=== PATIENT | male | born 1965 | race Caucasian/White ===

== ENCOUNTER 2020-04-20 07:42 | Outpatient (REF) | payer OTHER, SELFPAY ==
[2020-04-20 10:51] LABS: Microalbum/Creatinine Ratio Ur 9.6 ug/mg cr
[2020-04-20 11:38] LABS: Vitamin B12 < 146 pg/mL (200-900)
[2020-04-21 14:47] LABS: Transglutaminase Ab IgG 1 U/mL
[2020-04-23 18:52] LABS: Endomysial IgA Antibody Negative (Negative)
[2020-04-23 20:01] LABS: Immunoglobulin A <5 mg/dL (47-310)
== END 2020-04-20 07:43 | disposition home or self-care (01) ==
LOC: HO.LAB 07:42
PROVIDERS: PCP Family Medicine; Referring Provider Family Medicine; Visit Provider Internal Medicine Endocrinology, Diabetes & Metabolism
DX: E13.9 Other specified diabetes mellitus without complications (principal); E11.3299 Type 2 diabetes mellitus with mild nonproliferative diabetic retinopathy without macular edema, unspecified eye; E78.5 Hyperlipidemia, unspecified; E66.9 Obesity, unspecified; I10 Essential (primary) hypertension
CPT/HCPCS: 36415; 82043; 82607; 82784; 82947; 83516; 86255; 86256; 99212

== ENCOUNTER → 2020-07-13 08:12 | Outpatient (BNVA) | payer OTHER, SELFPAY | PROVIDERS: PCP Family Medicine; Visit Provider Internal Medicine Endocrinology, Diabetes & Metabolism | DX: E13.9 Other specified diabetes mellitus without complications (principal); E10.3213 Type 1 diabetes mellitus with mild nonproliferative diabetic retinopathy with macular edema, bilateral; E53.8 Deficiency of other specified B group vitamins; E78.5 Hyperlipidemia, unspecified; E66.9 Obesity, unspecified; I10 Essential (primary) hypertension | CPT/HCPCS: 82947; 99212 ==

== ENCOUNTER 2020-07-29 12:19 | Outpatient (REF) | payer OTHER, SELFPAY ==
[2020-07-29 15:34] LABS: Alanine Aminotransferase 50 U/L (0-40); Albumin Level 4.1 g/dL (3.5-5.0); Alkaline Phosphatase 87 U/L (39-117); Anion Gap 13 (12-20); Aspartate Amino Transferase 50 U/L (5-37); Bilirubin Total 0.6 mg/dL (0.0-1.0); Blood Urea Nitrogen 9 mg/dL (9-16); Calcium 8.6 mg/dL (8.4-10.2); Carbon Dioxide 28 mmol/L (22-29); Chloride 104 mmol/L (96-108); Cholesterol 115 mg/dL; Estimated Glomerular Filt Rate > 60; Glucose Fasting 154 mg/dL (60-99); HDL Cholesterol 31 mg/dL; LDL Cholesterol Calculated 48 mg/dl; Potassium 3.7 mmol/L (3.3-5.1); Sodium 141 mmol/L (135-145); Total Protein 7.1 g/dL (6.5-8.0); Triglycerides 180 mg/dL
[2020-07-29 15:39] LABS: Free T4 (Free Thyroxine) 0.97 ng/dL (0.71-1.85)
[2020-07-29 15:53] LABS: Microalbum/Creatinine Ratio Ur 177.1 ug/mg cr
[2020-07-29 16:48] LABS: Vitamin B12 368 pg/mL (200-900)
[2020-07-30 03:16] LABS: LDL Cholesterol Direct 61 mg/dL (<100)
== END 2020-07-29 12:20 | disposition home or self-care (01) ==
LOC: HO.LAB 12:19
PROVIDERS: PCP Family Medicine; Visit Provider Internal Medicine Endocrinology, Diabetes & Metabolism
DX: E13.329 Other specified diabetes mellitus with mild nonproliferative diabetic retinopathy without macular edema (principal); Z46.81 Encounter for fitting and adjustment of insulin pump; E78.5 Hyperlipidemia, unspecified; E66.9 Obesity, unspecified; Z68.34 Body mass index [BMI] 34.0-34.9, adult; I10 Essential (primary) hypertension; E53.8 Deficiency of other specified B group vitamins
CPT/HCPCS: 36415; 80053; 80061; 82043; 82607; 82947; 83721; 84439; 84443; 99212

== ENCOUNTER → 2020-09-27 07:58 | Outpatient (BNVA) | payer OTHER, SELFPAY | PROVIDERS: PCP Family Medicine; Visit Provider Internal Medicine Endocrinology, Diabetes & Metabolism | DX: E13.9 Other specified diabetes mellitus without complications (principal); E10.3213 Type 1 diabetes mellitus with mild nonproliferative diabetic retinopathy with macular edema, bilateral; E78.5 Hyperlipidemia, unspecified; E66.9 Obesity, unspecified; E53.8 Deficiency of other specified B group vitamins; I10 Essential (primary) hypertension | CPT/HCPCS: 82947; 99212 ==

== ENCOUNTER → 2020-12-14 15:17 | Outpatient (BNVA) | payer OTHER, SELFPAY | PROVIDERS: PCP Family Medicine; Visit Provider Internal Medicine Endocrinology, Diabetes & Metabolism | DX: E10.3213 Type 1 diabetes mellitus with mild nonproliferative diabetic retinopathy with macular edema, bilateral (principal); E78.5 Hyperlipidemia, unspecified; E66.9 Obesity, unspecified; E53.8 Deficiency of other specified B group vitamins; I10 Essential (primary) hypertension | CPT/HCPCS: 82947; 99212 ==

== ENCOUNTER → 2021-03-30 07:28 | Outpatient (BNVA) | payer OTHER, SELFPAY | PROVIDERS: PCP Family Medicine; Visit Provider Nurse Practitioner Gerontology | DX: E13.9 Other specified diabetes mellitus without complications (principal); E10.3213 Type 1 diabetes mellitus with mild nonproliferative diabetic retinopathy with macular edema, bilateral; E78.5 Hyperlipidemia, unspecified; E66.9 Obesity, unspecified; E53.8 Deficiency of other specified B group vitamins; I10 Essential (primary) hypertension | CPT/HCPCS: 82947; 99212 ==

== ENCOUNTER → 2021-03-31 07:58 | Outpatient (BNVA) | payer OTHER, SELFPAY | PROVIDERS: PCP Family Medicine; Visit Provider Registered Nurse Diabetes Educator | DX: E13.9 Other specified diabetes mellitus without complications (principal) | CPT/HCPCS: 99211 ==

== ENCOUNTER → 2021-06-15 12:18 | Outpatient (BNVA) | payer OTHER, SELFPAY | PROVIDERS: PCP Family Medicine; Visit Provider Registered Nurse Diabetes Educator | DX: E13.9 Other specified diabetes mellitus without complications (principal) | CPT/HCPCS: 99211 ==

== ENCOUNTER → 2021-07-18 07:56 | Outpatient (BNVA) | payer OTHER, SELFPAY | PROVIDERS: PCP Family Medicine; Visit Provider Nurse Practitioner Gerontology | DX: E13.9 Other specified diabetes mellitus without complications (principal); E10.3213 Type 1 diabetes mellitus with mild nonproliferative diabetic retinopathy with macular edema, bilateral; E78.5 Hyperlipidemia, unspecified; E66.9 Obesity, unspecified; E53.8 Deficiency of other specified B group vitamins; I10 Essential (primary) hypertension | CPT/HCPCS: 82947; 83036; 99212 ==

== ENCOUNTER → 2021-08-17 07:48 | Outpatient (BNVA) | payer OTHER, SELFPAY | PROVIDERS: PCP Family Medicine; Visit Provider Registered Nurse Diabetes Educator | DX: E13.9 Other specified diabetes mellitus without complications (principal); Z79.4 Long term (current) use of insulin; Z96.41 Presence of insulin pump (external) (internal) | CPT/HCPCS: 99211 ==

== ENCOUNTER → 2021-10-12 07:52 | Outpatient (BNVA) | payer OTHER, SELFPAY | PROVIDERS: PCP Family Medicine; Visit Provider Nurse Practitioner Gerontology | DX: E10.3213 Type 1 diabetes mellitus with mild nonproliferative diabetic retinopathy with macular edema, bilateral (principal); E13.9 Other specified diabetes mellitus without complications; E78.5 Hyperlipidemia, unspecified; E66.9 Obesity, unspecified; E53.8 Deficiency of other specified B group vitamins; I10 Essential (primary) hypertension; Z79.4 Long term (current) use of insulin; Z96.41 Presence of insulin pump (external) (internal) | CPT/HCPCS: 82947; 83036 ==

== ENCOUNTER → 2022-03-23 08:00 | Outpatient (BNVA) | payer OTHER, SELFPAY | PROVIDERS: PCP Family Medicine; Visit Provider Internal Medicine Endocrinology, Diabetes & Metabolism | DX: E10.65 Type 1 diabetes mellitus with hyperglycemia (principal); E10.3299 Type 1 diabetes mellitus with mild nonproliferative diabetic retinopathy without macular edema, unspecified eye; Z79.4 Long term (current) use of insulin; Z96.41 Presence of insulin pump (external) (internal) | CPT/HCPCS: 82947; 83036; 99212 ==

== ENCOUNTER → 2022-07-04 16:15 | Outpatient (BNVA) | payer OTHER, SELFPAY | PROVIDERS: PCP Family Medicine; Visit Provider Internal Medicine Endocrinology, Diabetes & Metabolism | DX: E13.65 Other specified diabetes mellitus with hyperglycemia (principal); Z96.41 Presence of insulin pump (external) (internal) | CPT/HCPCS: 82947; 83036; 99212 ==

== ENCOUNTER → 2022-10-02 07:55 | Outpatient (BNVA) | payer OTHER, SELFPAY | PROVIDERS: PCP Family Medicine; Visit Provider Registered Nurse Diabetes Educator | DX: E10.65 Type 1 diabetes mellitus with hyperglycemia (principal); Z79.4 Long term (current) use of insulin; Z46.81 Encounter for fitting and adjustment of insulin pump; Z96.41 Presence of insulin pump (external) (internal) | CPT/HCPCS: 99211 ==

== ENCOUNTER → 2022-10-19 15:12 | Outpatient (BNVA) | payer OTHER, SELFPAY | PROVIDERS: PCP Family Medicine; Visit Provider Internal Medicine Endocrinology, Diabetes & Metabolism | DX: E10.65 Type 1 diabetes mellitus with hyperglycemia (principal); Z96.41 Presence of insulin pump (external) (internal) | CPT/HCPCS: 82947; 83036; 99212 ==

== ENCOUNTER 2023-01-17 11:01 | Outpatient (AMB) | payer OTHER, SELFPAY ==
[2023-01-17 11:05] VITALS: BP 124/72; PULSE 61; BMI 33.8
--- NOTE | 2023-01-17 11:05 | A.OFFVIS_ITS ---
Intake Vital Signs 01/17/23 11:05 Height 6 ft 6 in Weight 292 lb 12.382 oz BMI 33.8 BP 124/72 Blood Pressure Location Lt brachial Position Sitting Pulse 61 Pulse Source Pulse Oximeter Intake Visit Reasons: f/u Type 2 DM Intake Note: Patient present today to follow up on Type 1 Diabetes Mellitus. Patient receives Dexcom supplies from [employer]. Pump supplies are rec'd from [employer]. Last Diabetic Eye exam: February 2022 Last Podiatry Visit: Does not see a Grocery Bagger Random Glucose:111 mg/dl HgA1C: 7.8% Member Of The Legislative Council Required: No Accompanied by: Self / Same As Patient Allergies lisinopril Allergy (Severe, Verified 01/17/23 11:14) Swelling penicillin V Allergy (Unknown, Verified 01/17/23 11:14) hives Sulfa (Sulfonamide Antibiotics) Allergy (Unknown, Verified 01/17/23 11:14) hives synthetic insulin Allergy (Unknown, Uncoded 10/19/22 15:21) hives Medication List - Last Reconciled 01/17/23 by El Blackman MD amlodipine 10 mg PO QAM aspirin 162 mg PO DAILY blood sugar diagnostic As directed blood-glucose meter,continuous (Dexcom G6 Clam Dredge Boat Captain) As directed blood-glucose sensor (Peachcom G6 Sensor device) USE TO MONITOR BLOOD SUGAR; CHANGE SENSOR EVERY 10 DAYS DIRECTED blood-glucose transmitter (Dexcom G6 Transmitter device) Every 90 days cetirizine 10 mg PO DAILY PRN cyanocobalamin (vitamin B-12) 500 mcg PO DAILY fluticasone propionate 110 mcg/actuation 2 puffs PO BID fluticasone propionate 50 mcg/actuation 2 sprays intranasal DAILY insulin regular hum U-500 conc (Humulin R U-500 (Concentrated) Insulin) 200 units daily via insulin pump subcut daily; via insulin pump subcut daily; 30 days L. gasseri-B. bifidum-B longum 1.5 billion cell ([place]) 1 cap PO DAILY meclizine 25 mg PO TID PRN metformin ER 1,000 mg (2 x 500 mg) PO BID metoprolol succinate ER 200 mg PO QAM multivitamin 1 tab PO DAILY multivitamin with iron 1 tab PO DAILY pen needle, diabetic As directed rosuvastatin 40 mg PO DAILY HPI HPI Comments History of Present Illness Details Patient is a 57-year-old male with DM type 1/JODI diagnosed at age 35 who prese [facility] for management of diabetes. He is karmen positive with preserve beta cell function. . He was forgetting his bolus with many snacks and meals. Past medical history: Dm 1/Jodi, hypertension, hyperlipidemia, primary immune deficiency disorder, rectal carcinoma status post resection, coronary artery disease with myocardial infarction at age 41, gammaglobuin anemia Micro and macrovascular complications: Neuropathy, mild nonproliferative diabetic retinopathy, bilateral, coronary artery disease. Diabetes medications: Metformin 1000 mg twice a day, Off Mounjaro 5 mg Qwkly because of GI discomfort Humulin U 500 in Tandem TSlim with Control IQ. In the past tried Ozempic, Januvia and was intolerant of both due to gi upset. Pump settings Midnight to 0.50 units/hour 05:00 0.800 units/hour 12:00 0.900 units/hour 11:00pm 0.6 units/hour Carb ratio 10 g Sensitivity 12:00 60 mg/dL 5am 55 mg/dl 12PM 55 11pm 60 mg/dl Active insulin time 5 hours Target 120 mg per dL. His total daily insulin dose is 18.6 units in 24 hour 51% basal 21 % food bolus 16 % correction bolus 0% Control IQ bolus CGM: In the last 2 weeks range 44 to 400 with an average of 170. 0% less than 65. 57 % between 65- 170. 43% above 170. continuous glucose monitoring in use. Control IQ in use 78% of the time. 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 Grocery Bagger: awhile ago Dental exam: long time ago Ophthalmology evaluation: last few mos ou mild NPDR Labs received from [facility] dated 08/18/2021: Microalbumin/creatinine ratio 17.6 Vitamin B12 736 Glucose 136 Creatinine 0.7 Estimated GFR 107 AST 77 Alk-phos 97 ALT 68 Cholesterol 136 Triglycerides 192 HDL 29 LDL 69 Non HDL 107 11/08/17 KARMEN negative C-Peptide 3.6 (fasting bg 163) islet cell antibody negative 10/26/16 GAD65 0.12 c-peptide 4.1 Had angioedema from lisinopril [facility] Medical History (Updated 03/23/22 @ 08:19 by El Blackman MD) B12 deficiency Dyslipidemia Hypertension 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), managed as type 1 Mild non proliferative diabetic retinopathy Obesity (BMI 30-39.9) Primary immune deficiency disorder Uncontrolled type 1 diabetes mellitus with hyperglycemia, with long-term current use of insulin Surgical History H/O hand surgery History of appendectomy History of testicular surgery Hx of colonoscopy Hx of knee surgery Hx of tonsillectomy Family History Father HTN (hypertension) Mother Thyroid disease Hypercholesterolemia Brother Diabetes mellitus Social History Household Members: None Alcohol intake: never Patient Tobacco Use Status: Never used Tobacco Physical Exam Vital Signs: Last Vital Signs Pulse 61 01/17/23 11:05 BP 124/72 01/17/23 11:05 BMI result Body Mass Index 33.8 Absence of Cushingoid features. Absence of acromegalic features. Neck exam reveals nl size thyroid about 15 gms. No thyroid nodules palpable. No carotid bruits present. Lungs CTA. Heart S1 S2, Reg R/R. No M/R/ G. Skin exam reveals absence of vitiligo or acanthosis nigricans. Abdominal exam reveals Soft NT/ND with NA BS. No organomegaly present. Neck Other: . Extrem Other: Visual exam of foot performed. No ulcerations or open lesions. There is a scaly lesion on both extremities. There is also 2+ edema present bilaterally No onchomycosis, no callouses.Pulses 2 + distally Sensation intact to monofilament exam. Vibratory sensation sensed is intact with 128 Hz tuning fork Results AMB Hemoglobin A1c AMB Hemoglobin A1c 7.8 % Last Edit by Tia Vaca on 01/17/23 11:33 Results Reviewed Results Reviewed: 01/17/23 11:22 Glucose, Whole Blood Routine Laboratory Last Values Glucose (Clinic) 111 mg/dL (60-115) 01/17/23 11:22 Hgb A1c (Clinic) 7.8 % (4.0-6.0) H 01/17/23 11:29 Assessment & Plan Assessment & Plan (1) Uncontrolled type 1 diabetes mellitus with hyperglycemia, with long-term current use of insulin: Code(s): E10.65 - Type 1 diabetes mellitus with hyperglycemia Plan: This is a 57-year-old white male labeled as LAD a type 1 but most probably type 2 with insulin resistance considerin KARMEN and islet cell negative currently treated with metformin, and a tandem T- slim pump with poor glycemic control and known microvascular and macrovascular complications namely retinopathy, neuropathy and CAD The plan is to give himself boluses particularly dinner boluses through the pump. . Will check a basic metabolic panel, lipid profile and microalbumin to creatinine ratio which was done at [facility] if available if basic metabolic panel is normal, Will talk to the patient about potentially starting an SGLT 2 inhibitor namely Jardiance 10 mg in light of the coronary artery disease particularly if he has microalbuminuria. Orders: Orders AMB Hemoglobin A1c Today E10.65 - Type 1 diabetes mellitus with hyperglycemia Coding Level of Care Code Est Pt Level 4 (64789) Diagnoses Uncontrolled type 1 diabetes mellitus with hyperglycemia, with long-term current use of insulin E10.65
[2023-01-17 11:27] LABS: Glucose, Whole Blood 111 mg/dL (60-115)
== END 2023-01-17 11:46 | disposition home or self-care (01) ==
PROVIDERS: PCP Family Medicine; Visit Provider Internal Medicine Endocrinology, Diabetes & Metabolism
DX: E10.65 Type 1 diabetes mellitus with hyperglycemia (principal)
CPT/HCPCS: 99214

== ENCOUNTER → 2023-01-17 11:01 | Outpatient (BNVA) | payer OTHER, SELFPAY | PROVIDERS: Visit Provider Internal Medicine Endocrinology, Diabetes & Metabolism | DX: E10.65 Type 1 diabetes mellitus with hyperglycemia (principal) | CPT/HCPCS: 82947; 83036; 99212 ==

== ENCOUNTER 2023-02-12 09:50 | Outpatient (AMB) | payer OTHER, SELFPAY ==
--- NOTE | 2023-02-12 10:24 | MHC.AMDMED ---
Intake Intake Visit Reasons: DM pump and sensor Surgical Device Sales Representative Required: No Accompanied by: Self / Same As Patient Allergies lisinopril Allergy (Severe, Verified 01/17/23 11:14) Swelling penicillin V Allergy (Unknown, Verified 01/17/23 11:14) hives Sulfa (Sulfonamide Antibiotics) Allergy (Unknown, Verified 01/17/23 11:14) hives synthetic insulin Allergy (Unknown, Uncoded 10/19/22 15:21) hives HPI Comprehensive Diabetes Asmnt Most Recent Diabetes Results: No Data to Display [facility] Medical History (Updated 03/23/22 @ 08:19 by El Blackman MD) Uncontrolled type 1 diabetes mellitus with hyperglycemia, with long-term current use of insulin B12 deficiency Primary immune deficiency disorder Hypertension Mild non proliferative diabetic retinopathy Obesity (BMI 30-39.9) 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), managed as type 1 Dyslipidemia Surgical History H/O hand surgery History of appendectomy History of testicular surgery Hx of colonoscopy Hx of knee surgery Hx of tonsillectomy Family History Father HTN (hypertension) Mother Thyroid disease Hypercholesterolemia Brother Diabetes mellitus Social History Household Members: None Alcohol intake: never Patient Tobacco Use Status: Never used Tobacco Assessment & Plan Assessment & Plan (1) 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 T slim with control IQ and Dexcom G6 The following topics were reviewed today: ?recommended he change cartridge and tubing at the same time,? reduce the amount of insulin you are feeling in each cartridge to match? average insulin for every 72 hours -? patient continues to go days without entering carbs into pump,? discussed the importance of entering all carbohydrates into insulin pump in order to? get correct insulin administration to cover carbohydrates ??? High Alert: 200 mg/dl ??? Low Alert: 80 mg/dl? Alerts in phone turned off Patient's average glucose for the past 2 weeks to 2 mg/dL Patient above target 57% Patient target 42% Patient below target 0% Insulin delivery setting: Troubleshooting after starting new pod or inserting new insulin set: Occlusion, adhesive tape sensitivity, redness Check BG 2 hours after site change Reviewed with?Clayton? the basic concepts of pump therapy, how to give insulin for meals and snacks, how to troubleshoot for hyper and hypoglycemia. ?Setting verified by CDCES. No changes made to patient's pump data at this visit,? patient needs to enter mealtime carbohydrates in order to get optimal glucose control Basal rate(s) (units/hour) : 12AM? to 5AM? 0.6 units / hr 5AM? to 12PM? 0.8 units / hr 12PM to 11PM? 0.9 units / hr 11PM to 12AM 0.6 units / hr? Bolus setting Insulin Carbohydrate Ratio (s) 12AM? to 12AM? 1:10 Correction Factor / Sensitivity Factor 12AM? to 12AM? 1:60 Active Insulin Time:? Control IQ defaults to 5 hours Target(s): 12AM? to 12AM? 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
== END 2023-02-12 10:33 | disposition home or self-care (01) ==
PROVIDERS: PCP Family Medicine; Visit Provider Registered Nurse Diabetes Educator
DX: E13.9 Other specified diabetes mellitus without complications (principal)

== ENCOUNTER → 2023-02-12 09:50 | Outpatient (BNVA) | payer OTHER, SELFPAY | PROVIDERS: Visit Provider Registered Nurse Diabetes Educator | DX: Z46.81 Encounter for fitting and adjustment of insulin pump (principal); E13.9 Other specified diabetes mellitus without complications | CPT/HCPCS: 99211 ==

== ENCOUNTER 2023-04-23 11:23 | Outpatient (AMB) | payer OTHER, SELFPAY ==
--- NOTE | 2023-04-23 11:26 | MHC.OFFVIS ---
Intake Vital Signs 04/23/23 11:27 Height 6 ft 6 in Weight 303 lb 2.17 oz BMI 35.0 BP 148/66 H Blood Pressure Location Lt brachial Position Sitting Pulse 72 Pulse Source Pulse Oximeter Intake Visit Reasons: f/u Type 1 DM JODI Intake Note: Patient present today to follow up on T1DM JODI. Patient receives Dexcom supplies from [employer]. Pump supplies are rec'd from [facility] Last Diabetic Eye exam: Last Podiatry Visit: Does not see a Avionics Integration Engineer Random Glucose: 347 mg/dl HgA1C: 7.2% Investment Specialist Required: No Accompanied by: Self / Same As Patient Allergies lisinopril Allergy (Severe, Verified 04/23/23 11:31) Swelling penicillin V Allergy (Unknown, Verified 04/23/23 11:31) hives Sulfa (Sulfonamide Antibiotics) Allergy (Unknown, Verified 04/23/23 11:31) hives synthetic insulin Allergy (Unknown, Uncoded 10/19/22 15:21) hives Medication List - Last Reconciled 04/23/23 by El Blackman MD amlodipine 10 mg PO QAM aspirin 162 mg PO DAILY blood sugar diagnostic As directed blood-glucose meter,continuous (Dexcom G6 Hatchery Attendant) As directed blood-glucose sensor (Dexcom G6 Sensor device) USE TO MONISTER BLOOD SUGAR; CHANGE EVERY 10 DAYS DIRECTED blood-glucose transmitter (Dexcom G6 Transmitter device) Every 90 days cetirizine 10 mg PO DAILY PRN cyanocobalamin (vitamin B-12) 500 mcg PO DAILY empagliflozin (Jardiance) 25 mg PO DAILY fluticasone propionate 110 mcg/actuation 2 puffs PO BID fluticasone propionate 50 mcg/actuation 2 sprays intranasal DAILY insulin regular hum U-500 conc (Humulin R U-500 (Concentrated) Insulin) 200 units daily via insulin pump subcut daily; via insulin pump subcut daily; 30 days L. gasseri-B. bifidum-B longum 1.5 billion cell ([place]) 1 cap PO DAILY meclizine 25 mg PO TID PRN metformin ER 1,000 mg (2 x 500 mg) PO BID metoprolol succinate ER 200 mg PO QAM multivitamin 1 tab PO DAILY multivitamin with iron 1 tab PO DAILY pen needle, diabetic As directed rosuvastatin 40 mg PO DAILY HPI HPI Comments History of Present Illness Details Patient is a 58-year-old male with DM type 1/JODI diagnosed at age 35 who presents for management of diabetes. He is karmen positive with preserve beta cell function. . He was forgetting his bolus with many snacks and meals. Past medical history: Dm 1/Jodi, hypertension, hyperlipidemia, primary immune deficiency disorder, rectal carcinoma status post resection, coronary artery disease with myocardial infarction at age 41, gammaglobuin anemia Micro and macrovascular complications: Neuropathy, mild nonproliferative diabetic retinopathy, bilateral, coronary artery disease. Diabetes medications: Metformin 1000 mg twice a day, Off Mounjaro 5 mg Qwkly because of GI discomfort Humulin U 500 in Tandem TSlim with Control IQ. In the past tried Ozempic, Januvia and was intolerant of both due to gi upset. Pump settings Basal rate(s) (units/hour) : 12AM? to 5AM? 0.6 units / hr 5AM? to 12PM? 0.8 units / hr 12PM to 11PM? 0.9 units / hr 11PM to 12AM 0.6 units / hr? Bolus setting Insulin Carbohydrate Ratio (s) 12AM? to 12AM? 1:10 Correction Factor / Sensitivity Factor 12AM? to 12AM? 1:60 Active Insulin Time:? Control IQ defaults to 5 hours Target(s): 12AM? to 12AM? 120 Not always bolusing before meals. Having GI issues His total daily insulin dose is 31.1 units in 24 hour 61% basal 39 % food bolus 0 % correction bolus 0% Control IQ bolus CGM: In the last 2 weeks with an average of 186. 1% less than 65. 54 % between 65- 170. 44% above 170. continuous glucose monitoring in use. Control IQ in use 78% of the time. Pattern shows post-breakfast add post-lunch hyperglycemia Symptoms reported: denies numbness, tingling, cramping in lower extremities Hypoglycemia: limited occasional overnight : Exercise: limited Size Cutter - CDE education: currently Avionics Integration Engineer: awhile ago Dental exam: long time ago Ophthalmology evaluation: 03/28/2023 ou mild NPDR Labs received from [facility] 11/08/17 KARMEN negative C-Peptide 3.6 (fasting bg 163) islet cell antibody negative 10/26/16 GAD65 0.12 c-peptide 4.1 Had angioedema from lisinopril [facility] Medical History (Updated 03/23/22 @ 08:19 by El Blackman MD) Uncontrolled type 1 diabetes mellitus with hyperglycemia, with long-term current use of insulin B12 deficiency Primary immune deficiency disorder Hypertension Mild non proliferative diabetic retinopathy Obesity (BMI 30-39.9) 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 Absence of acromegalic features. Neck exam reveals nl size thyroid about 15 gms. No thyroid nodules palpable. No carotid bruits present. Lungs CTA. Heart S1 S2, Reg R/R. No M/R/ G. Skin exam reveals absence of vitiligo or acanthosis nigricans. Abdominal exam reveals Soft NT/ND with NA BS. No organomegaly present. Neck Other: . Extrem Other: Visual exam of foot performed. No ulcerations or open lesions. There is a scaly lesion on both extremities. There is also 2+ edema present bilaterally No onchomycosis, no callouses.Pulses 2 + distally Sensation intact to monofilament exam. Vibratory sensation sensed is intact with 128 Hz tuning fork Results AMB Hemoglobin A1c AMB Hemoglobin A1c 7.2 % Last Edit by Tia Vaca on 04/23/23 12:02 Results Reviewed Results Reviewed: Laboratory Last Values Glucose (Clinic) 347 mg/dL (60-115) H 04/23/23 11:34 Assessment & Plan Assessment & Plan (1) Uncontrolled type 1 diabetes mellitus with hyperglycemia, with long-term current use of insulin: Code(s): E10.65 - Type 1 diabetes mellitus with hyperglycemia Plan: This is a 58-year-old white male labeled as LAD a type 1 but most probably type 2 with insulin resistance considerin KARMEN and islet cell negative currently treated with metformin, and a tandem T- slim pump with poor glycemic control and known microvascular and macrovascular complications namely retinopathy, neuropathy and CAD The plan is to reinforce to the patient to bolus with the U-500 insulin before meals. I have also started Jardiance 10 mg in light of the history of CAD and albuminuria. Will recheck basic metabolic panel 10 days at the started Jardiance . Went over side effects of Jardiance including but not limited to dehydration, risk of DKA and Melvina's Gangrene. Jardiance 10 mg samples given to pt . Lot# [id number] expiration date 04/2025 Orders: Orders AMB Hemoglobin A1c Today E10.65 - Type 1 diabetes mellitus with hyperglycemia Basic Metabolic Panel 10 Days E10.65 - Type 1 diabetes mellitus with hyperglycemia Medications: New empagliflozin (Jardiance) 25 mg PO DAILY 30 tabs 5RF Coding Level of Care Code Est Pt Level 4 (85307) Diagnoses Uncontrolled type 1 diabetes mellitus with hyperglycemia, with long-term current use of insulin E10.65
[2023-04-23 11:27] VITALS: BP 148/66; PULSE 72; BMI 35.0
[2023-04-23 11:38] LABS: Glucose, Whole Blood 347 mg/dL (60-115)
== END 2023-04-23 12:20 | disposition home or self-care (01) ==
PROVIDERS: PCP Family Medicine; Visit Provider Internal Medicine Endocrinology, Diabetes & Metabolism
DX: E10.65 Type 1 diabetes mellitus with hyperglycemia (principal)
CPT/HCPCS: 99214

== ENCOUNTER → 2023-04-23 11:23 | Outpatient (BNVA) | payer OTHER, SELFPAY | PROVIDERS: PCP Family Medicine; Visit Provider Internal Medicine Endocrinology, Diabetes & Metabolism | DX: Z46.81 Encounter for fitting and adjustment of insulin pump (principal); E10.65 Type 1 diabetes mellitus with hyperglycemia; Z79.84 Long term (current) use of oral hypoglycemic drugs; Z79.4 Long term (current) use of insulin | CPT/HCPCS: 82947; 83036; 99212 ==

== ENCOUNTER 2023-06-12 09:59 | Outpatient (AMB) | payer OTHER, SELFPAY ==
--- NOTE | 2023-06-12 10:24 | MHC.AMDMED ---
Intake Intake Visit Reasons: DM-CONFIRMED Allergies lisinopril Allergy (Severe, Verified 04/23/23 11:31) Swelling penicillin V Allergy (Unknown, Verified 04/23/23 11:31) hives Sulfa (Sulfonamide Antibiotics) Allergy (Unknown, Verified 04/23/23 11:31) hives synthetic insulin Allergy (Unknown, Uncoded 10/19/22 15:21) hives HPI Comprehensive Diabetes Asmnt Most Recent Diabetes Results: Microalb/Creat Ratio 177.1 ug/mg cr 07/29/20 Cholesterol 115 mg/dL 07/29/20 HDL Cholesterol 31 mg/dL 07/29/20 Triglycerides 180 mg/dL 07/29/20 Creatinine 0.79 mg/dL (0.5-1.4) 07/29/20 Blood Urea Nitrogen 9 mg/dL (9-16) 07/29/20 Sodium 141 mmol/L (135-145) 07/29/20 Potassium 3.7 mmol/L (3.3-5.1) 07/29/20 Chloride 104 mmol/L (96-108) 07/29/20 Carbon Dioxide 28 mmol/L (22-29) 07/29/20 Calcium 8.6 mg/dL (8.4-10.2) 07/29/20 AST 50 U/L (5-37) H 07/29/20 ALT 50 U/L (0-40) H 07/29/20 Total Protein 7.1 g/dL (6.5-8.0) 07/29/20 Albumin 4.1 g/dL (3.5-5.0) 07/29/20 [facility] Medical History (Updated 03/23/22 @ 08:19 by El Blackman MD) Uncontrolled type 1 diabetes mellitus with hyperglycemia, with long-term current use of insulin B12 deficiency Primary immune deficiency disorder Hypertension Mild non proliferative diabetic retinopathy Obesity (BMI 30-39.9) 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), managed as type 1 Dyslipidemia Surgical History H/O hand surgery Hx of knee surgery History of testicular surgery Hx of tonsillectomy Hx of colonoscopy History of appendectomy Family History Father HTN (hypertension) Mother Thyroid disease Hypercholesterolemia Brother Diabetes mellitus Social History Household Members: None Alcohol intake: never Patient Tobacco Use Status: Never used Tobacco Assessment & Plan Assessment & Plan (1) Uncontrolled type 1 diabetes mellitus with hyperglycemia, with long-term current use of insulin: Code(s): E10.65 - Type 1 diabetes mellitus with hyperglycemia Plan: Patient presents for pump training for? T slim with control IQ and Dexcom G6 The following topics were reviewed today: -New integration with Dexcom G7 and John 2 -? U100 vs U500 in insulin pump therapy ??? High Alert: 200 mg/dl ??? Low Alert: 80 mg/dl? Alerts in phone turned off Patient's average glucose for the past 3 days to 155 mg/dL Patient above target 34% Patient target 66% Patient below target 0% Patient reports he had damage Dexcom G6 sensor, he was without a sensor for the past 8 days, currently he is using sensor he is started 3 days ago. Patient's average insulin for the past 30 days through his insulin pump has been 16.1 units will send a message to Dr. Blackman to discuss switching patient from U 500 to U 100 to reduce risk of severe hypoglycemia Patient reports he does not feel comfortable bolusing sometimes when his glucose is within range if he is eating under 50 g of carbohydrate Insulin delivery setting: Troubleshooting after starting new pod or inserting new insulin set: Occlusion, adhesive tape sensitivity, redness Check BG 2 hours after site change ?Setting verified by CDCES. No changes made to patient's pump data at this visit Basal rate(s) (units/hour) : 12AM? to 5AM? 0.6 units / hr 5AM? to 12PM? 0.8 units / hr 12PM to 11PM? 0.9 units / hr 11PM to 12AM 0.6 units / hr? Bolus setting Insulin Carbohydrate Ratio (s) 12AM? to 12AM? 1:10 Correction Factor / Sensitivity Factor 12AM? to 12AM? 1:60 Active Insulin Time:? Control IQ defaults to 5 hours Target(s): 12AM? to 12AM? 120 Pump Activities Sleep Schedule: Off Patient Instructions: Call insurance to find your cost for Dexcom G7 and John 2 which are now compatible with your T-Slim Discuss switching to U100 with Dr. Blackman from U500 at visit on 07/26/23 follow up with Diabetes Education in 2 months Coding Level of Care Code Est Pt Level 1 (56282) Diagnoses Uncontrolled type 1 diabetes mellitus with hyperglycemia, with long-term current use of insulin E10.65
== END 2023-06-12 10:31 | disposition home or self-care (01) ==
PROVIDERS: PCP Family Medicine; Visit Provider Registered Nurse Diabetes Educator
DX: E10.65 Type 1 diabetes mellitus with hyperglycemia (principal)

== ENCOUNTER → 2023-06-12 09:59 | Outpatient (BNVA) | payer OTHER, SELFPAY | PROVIDERS: PCP Family Medicine; Visit Provider Registered Nurse Diabetes Educator | DX: Z46.81 Encounter for fitting and adjustment of insulin pump (principal); E10.65 Type 1 diabetes mellitus with hyperglycemia; Z79.4 Long term (current) use of insulin | CPT/HCPCS: 99211 ==

== ENCOUNTER → 2023-07-26 15:28 | Outpatient (BNVA) | payer OTHER, SELFPAY | PROVIDERS: PCP Family Medicine; Visit Provider Internal Medicine Endocrinology, Diabetes & Metabolism | DX: Z46.81 Encounter for fitting and adjustment of insulin pump (principal); E10.65 Type 1 diabetes mellitus with hyperglycemia; Z79.4 Long term (current) use of insulin; Z79.84 Long term (current) use of oral hypoglycemic drugs | CPT/HCPCS: 82947; 83036; 99212 ==

== ENCOUNTER 2023-08-09 08:50 | Outpatient (AMB) | payer OTHER, SELFPAY ==
--- NOTE | 2023-08-09 09:37 | A.OFFVIS_ITS ---
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 Required: No Accompanied by: Self / Same As Patient Allergies lisinopril Allergy (Severe, Verified 04/23/23 11:31) Swelling penicillin V Allergy (Unknown, Verified 04/23/23 11:31) hives Sulfa (Sulfonamide Antibiotics) Allergy (Unknown, Verified 04/23/23 11:31) hives synthetic insulin Allergy (Unknown, Uncoded 10/19/22 15:21) hives HPI Comprehensive Diabetes Asmnt Most Recent Diabetes Results: Microalb/Creat Ratio 177.1 ug/mg cr 07/29/20 Cholesterol 115 mg/dL 07/29/20 HDL Cholesterol 31 mg/dL 07/29/20 Triglycerides 180 mg/dL 07/29/20 Creatinine 0.79 mg/dL (0.5-1.4) 07/29/20 Blood Urea Nitrogen 9 mg/dL (9-16) 07/29/20 Sodium 141 mmol/L (135-145) 07/29/20 Potassium 3.7 mmol/L (3.3-5.1) 07/29/20 Chloride 104 mmol/L (96-108) 07/29/20 Carbon Dioxide 28 mmol/L (22-29) 07/29/20 Calcium 8.6 mg/dL (8.4-10.2) 07/29/20 AST 50 U/L (5-37) H 07/29/20 ALT 50 U/L (0-40) H 07/29/20 Total Protein 7.1 g/dL (6.5-8.0) 07/29/20 Albumin 4.1 g/dL (3.5-5.0) 07/29/20 [facility] Medical History (Updated 03/23/22 @ 08:19 by El Blackman MD) Uncontrolled type 1 diabetes mellitus with hyperglycemia, with long-term current use of insulin B12 deficiency Primary immune deficiency disorder Hypertension Mild non proliferative diabetic retinopathy Obesity (BMI 30-39.9) 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), managed as type 1 Dyslipidemia Surgical History H/O hand surgery Hx of knee surgery History of testicular surgery Hx of tonsillectomy Hx of colonoscopy History of appendectomy Family History Father HTN (hypertension) Mother Thyroid disease Hypercholesterolemia Brother Diabetes mellitus Social History Household Members: None Alcohol intake: never Patient Tobacco Use Status: Never used Tobacco Assessment & Plan Assessment & Plan (1) 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 T slim with control IQ and Dexcom G6 The following topics were reviewed today: -New integration with Dexcom G7 and John 2 -? U100 vs U500 in insulin pump therapy ??? High Alert: 200 mg/dl ??? Low Alert: 80 mg/dl? Alerts in phone turned off Patient's average glucose for the past 3 days to 189 mg/dL Patient above target 47% Patient target 52% Patient below target 1% Patient has increased bolusing before meals, on days where he enters carbs and boluses his average glucose is exponentially better than on days where he forgets to bolus for his meals. He has had several tests in the past 2 weeks which have had him hold his metformin and Jardiance, holding the medication may explain why average glucose for the past 2 weeks is running a little on the higher side with last visit. Patient has had some overnight hypoglycemia, discussed with patient putting sleep schedule back on. Patient still has not upgraded pump for new sensor, recommended to patient to log into tandem account intake required tutorial, for John 2 sensor Insulin delivery setting: Troubleshooting after starting new pod or inserting new insulin set: Occlusion, adhesive tape sensitivity, redness Check BG 2 hours after site change ?Setting verified by CDCES. No changes made to patient's pump data at this visit Basal rate(s) (units/hour) : 12AM? to 5AM? 0.6 units / hr 5AM? to 12PM? 0.8 units / hr 12PM to 11PM? 0.9 units / hr 11PM to 12AM 0.6 units / hr? Bolus setting Insulin Carbohydrate Ratio (s) 12AM? to 12AM? 1:10 Correction Factor / Sensitivity Factor 12AM? to 12AM? 1:60 Active Insulin Time:? Control IQ defaults to 5 hours Target(s): 12AM? to 12AM? 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
== END 2023-08-09 09:42 | disposition home or self-care (01) ==
PROVIDERS: PCP Family Medicine; Visit Provider Registered Nurse Diabetes Educator
DX: E13.9 Other specified diabetes mellitus without complications (principal)

== ENCOUNTER → 2023-08-09 08:50 | Outpatient (BNVA) | payer OTHER, SELFPAY | PROVIDERS: PCP Family Medicine; Visit Provider Registered Nurse Diabetes Educator | DX: E13.9 Other specified diabetes mellitus without complications (principal); Z96.41 Presence of insulin pump (external) (internal); Z79.4 Long term (current) use of insulin | CPT/HCPCS: 99211 ==

== ENCOUNTER 2023-10-22 09:33 | Outpatient (REF) | payer OTHER, SELFPAY ==
[2023-10-22 10:52] LABS: Anion Gap 16 (12-20); Blood Urea Nitrogen 13 mg/dL (9-16); Calcium 9.3 mg/dL (8.4-10.2); Carbon Dioxide 30 mmol/L (22-29); Chloride 104 mmol/L (96-108); Estimated Glomerular Filt Rate > 60; Glucose Random 87 mg/dL (60-115); Potassium 3.5 mmol/L (3.3-5.1); Sodium 146 mmol/L (135-145)
== END 2023-10-22 09:34 | disposition home or self-care (01) ==
LOC: HO.LAB 09:33
PROVIDERS: Visit Provider Internal Medicine Endocrinology, Diabetes & Metabolism
DX: E10.65 Type 1 diabetes mellitus with hyperglycemia (principal)
CPT/HCPCS: 36415; 80048

== ENCOUNTER 2023-10-24 14:03 | Outpatient (AMB) | payer OTHER, SELFPAY ==
--- NOTE | 2023-10-24 14:09 | A.OFFVIS_ITS ---
Vital Signs 10/24/23 14:14 Height 6 ft 6 in Weight 296 lb 11.875 oz BMI 34.3 BP 138/72 Blood Pressure Location Lt brachial Position Sitting Pulse 64 Pulse Source Pulse Oximeter Intake Visit Reasons: f/u Type 1 DM JODI/pump-LVM Intake Note: Patient presents today to follow up on D1MT and JODI. 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 He is karmen positive with preserve beta cell function. . He was forgetting his bolus with many snacks and meals. Past medical history: Dm 1/Jodi, hypertension, hyperlipidemia, primary immune deficiency disorder, rectal carcinoma status post resection, coronary artery disease with myocardial infarction at age 41, gammaglobuin anemia Micro and macrovascular complications: Neuropathy, mild nonproliferative diabetic retinopathy, bilateral, coronary artery disease. Diabetes medications: Metformin 1000 mg twice a day, Jardiance 25 mg QD Off Mounjaro 5 mg Qwkly because of GI discomfort Humulin U 500 in Tandem TSlim with Control IQ. In the past tried Ozempic, Januvia and was intolerant of both due to gi upset. Pump settings Basal rate(s) (units/hour) : 12AM? to 5AM? 0.5 units / hr 5AM? to 12PM? 0.8 units / hr 12PM to 11PM? 0.9 units / hr 11PM to 12AM 0.6 units / hr? Bolus setting Insulin Carbohydrate Ratio (s) 12AM? to 12AM? 1:10 Correction Factor / Sensitivity Factor 12AM? to 12AM? 1:60 Active Insulin Time:? Control IQ defaults to 5 hours Target(s): 12AM? to 12AM? 120 Not always bolusing before meals. His total daily insulin dose is 44.9 units in 24 hour 44% basal 56 % food bolus 1 % correction bolus 13% Control IQ bolus CGM: In the last 2 weeks with an average of 156 and G mi of 7%. 1% less than 65. 68 % between 65- 170. 35% above 170. continuous glucose monitoring in use. Control IQ in use 87% of the time. 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 Dental exam: long time ago Ophthalmology evaluation: 09/2023 ou mild NPDR Labs received from [facility] 11/08/17 KARMEN negative C-Peptide 3.6 (fasting bg 163) islet cell antibody negative 10/26/16 GAD65 0.12 c-peptide 4.1 Had angioedema from lisinopril [facility] Medical History (Updated 03/23/22 @ 08:19 by El Blackman MD) Uncontrolled type 1 diabetes mellitus with hyperglycemia, with long-term current use of insulin B12 deficiency Primary immune deficiency disorder Hypertension Mild non proliferative diabetic retinopathy Obesity (BMI 30-39.9) 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 Absence of acromegalic features. Neck exam reveals nl size thyroid about 15 gms. No thyroid nodules palpable. No carotid bruits present. Lungs CTA. Heart S1 S2, Reg R/R. No M/R/ G. Skin exam reveals absence of vitiligo or acanthosis nigricans. Abdominal exam reveals Soft NT/ND with NA BS. No organomegaly present. Neck Other: . Extrem Other: Visual exam of foot performed. No ulcerations or open lesions. There is a scaly lesion on both extremities. There is also 2+ edema present bilaterally No onchomycosis, no callouses.Pulses 2 + distally Sensation intact to monofilament exam. Vibratory sensation sensed is intact with 128 Hz tuning fork Results AMB Hemoglobin A1c AMB Hemoglobin A1c 6.7 % Last Edit by MINO Navas on 10/24/23 14:29 Results Reviewed Results Reviewed: Laboratory Last Values Hgb A1c (Clinic) 6.7 % (4.0-6.0) H 10/24/23 14:23 Assessment & Plan Assessment & Plan (1) Uncontrolled type 1 diabetes mellitus with hyperglycemia, with long-term current use of insulin: Code(s): E10.65 - Type 1 diabetes mellitus with hyperglycemia Category: Medical Plan: This is a 58-year-old white male labeled as LAD a type 1 but most probably type 2 with insulin resistance considerin KARMEN and islet cell negative currently treated with metformin, and a tandem T- slim pump with poor glycemic control and known microvascular and macrovascular complications namely retinopathy, neuropathy and CAD The plan is to continue the current regimen . I will have him follow up with the health lead. Will check lipid profile microalbumin to creatinine ratio Orders: Orders AMB Hemoglobin A1c Today E10.65 - Type 1 diabetes mellitus with hyperglycemia, Z13.9 - Encounter for screening, unspecified Microalbumin, Random (w Creat) Today E10.65 - Type 1 diabetes mellitus with hyperglycemia Lipid Panel Today E10.65 - Type 1 diabetes mellitus with hyperglycemia Coding Level of Care Code Est Pt Level 4 (49145) Diagnoses Uncontrolled type 1 diabetes mellitus with hyperglycemia, with long-term current use of insulin E10.65
[2023-10-24 14:14] VITALS: BP 138/72; PULSE 64; BMI 34.3
[2023-10-24 18:13] LABS: Glucose, Whole Blood 78 mg/dL (60-115)
== END 2023-10-24 14:36 | disposition home or self-care (01) ==
LOC: HO.ENCR 14:07
PROVIDERS: Visit Provider Internal Medicine Endocrinology, Diabetes & Metabolism
DX: Z13.9 Encounter for screening, unspecified (principal); E10.65 Type 1 diabetes mellitus with hyperglycemia
CPT/HCPCS: 99214

== ENCOUNTER → 2023-10-24 14:07 | Outpatient (BNVA) | payer OTHER, SELFPAY | PROVIDERS: Visit Provider Internal Medicine Endocrinology, Diabetes & Metabolism | DX: E10.65 Type 1 diabetes mellitus with hyperglycemia (principal); Z96.41 Presence of insulin pump (external) (internal); Z79.4 Long term (current) use of insulin | CPT/HCPCS: 82947; 83036; 99212 ==

== ENCOUNTER 2023-12-10 08:56 | Outpatient (AMB) | payer OTHER, SELFPAY ==
--- NOTE | 2023-12-10 09:37 | A.OFFVIS_ITS ---
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 Accompanied by: Self / Same As Patient Allergies lisinopril Allergy (Severe, Verified 10/24/23 14:17) Swelling penicillin V Allergy (Unknown, Verified 10/24/23 14:17) hives Sulfa (Sulfonamide Antibiotics) Allergy (Unknown, Verified 10/24/23 14:17) hives synthetic insulin Allergy (Unknown, Uncoded 10/24/23 14:17) hives HPI Comprehensive Diabetes Asmnt Most Recent Diabetes Results: Microalb/Creat Ratio 177.1 ug/mg cr 07/29/20 Cholesterol 115 mg/dL 07/29/20 HDL Cholesterol 31 mg/dL 07/29/20 Triglycerides 180 mg/dL 07/29/20 Creatinine 0.73 mg/dL (0.5-1.4) 10/22/23 Blood Urea Nitrogen 13 mg/dL (9-16) 10/22/23 Sodium 146 mmol/L (135-145) H 10/22/23 Potassium 3.5 mmol/L (3.3-5.1) 10/22/23 Chloride 104 mmol/L (96-108) 10/22/23 Carbon Dioxide 30 mmol/L (22-29) H 10/22/23 Calcium 9.3 mg/dL (8.4-10.2) 10/22/23 AST 50 U/L (5-37) H 07/29/20 ALT 50 U/L (0-40) H 07/29/20 Total Protein 7.1 g/dL (6.5-8.0) 07/29/20 Albumin 4.1 g/dL (3.5-5.0) 07/29/20 [facility] Medical History (Updated 03/23/22 @ 08:19 by El Blackman MD) Uncontrolled type 1 diabetes mellitus with hyperglycemia, with long-term current use of insulin B12 deficiency Primary immune deficiency disorder Hypertension Mild non proliferative diabetic retinopathy Obesity (BMI 30-39.9) 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), managed as type 1 Dyslipidemia Surgical History H/O hand surgery Hx of knee surgery History of testicular surgery Hx of tonsillectomy Hx of colonoscopy History of appendectomy Family History Father HTN (hypertension) Mother Thyroid disease Hypercholesterolemia Brother Diabetes mellitus Social History Household Members: None Alcohol intake: never Patient Tobacco Use Status: Never used Tobacco Assessment & Plan Assessment & Plan (1) Uncontrolled type 1 diabetes mellitus with hyperglycemia, with long-term current use of insulin: Code(s): E10.65 - Type 1 diabetes mellitus with hyperglycemia Plan: Patient presents for pump training for? T slim with control IQ and Dexcom G6 The following topics were reviewed today: -difference between using Dexcom G6 sensor in Dexcom G7 sensor -? accurately entering amount of carbohydrates in pump ??? High Alert: 200 mg/dl ??? Low Alert: 65 mg/dl? Alerts in phone turned off Patient's average glucose for the past 3 days to 149mg/dL Patient above target 28.5% Patient target 69% Patient below target 1.7% Patient has increased bolusing before meals, on days where he enters carbs and boluses his average glucose is exponentially better than on days where he forgets to bolus for his meals. Patient's last A1c 6.7% 10/24/23 Patient had 3 episodes of hypoglycemia overnight on 12/10/2023, patient reported that he put in an extra 110 g of carb when his glucose level was high, that he did not eat to try and reduce hyperglycemia. Reviewed with patient the importance of not adding in carbs that you are not eating, which can lead to severe hypoglycemia. Discussed with patient adjusting overnight basal rate, at this time patient declined to make any pump changes Reviewed with patient rules about when to test for ketones, instructions given to patient. Request for prescription for ketone strips sent to Dr. Blackman . Patient upgraded pump for new sensor, patient given sample Dexcom G7 sensor to use, when his next G 6 sensor expires. Insulin delivery setting: Troubleshooting after starting new pod or inserting new insulin set: Occlusion, adhesive tape sensitivity, redness Check BG 2 hours after site change ?Setting verified by CDCES. No changes made to patient's pump data at this visit Basal rate(s) (units/hour) : 12AM? to 5AM? 0.6 units / hr 5AM? to 12PM? 0.8 units / hr 12PM to 11PM? 0.9 units / hr 11PM to 12AM 0.6 units / hr? Bolus setting Insulin Carbohydrate Ratio (s) 12AM? to 12AM? 1:10 Correction Factor / Sensitivity Factor 12AM? to 12AM? 1:60 Active Insulin Time:? Control IQ defaults to 5 hours Target(s): 12AM? to 12AM? 120 Pump Activities New Sleep Schedule: On Patient Instructions: DIABETES PROBLEMS HOMECARE INSTRUCTIONS? for High Blood Sugar and When to Test for Ketones Hyperglycemia is the technical term for high blood glucose (blood sugar). High blood sugar happens when the body has too little insulin or when the body can't use insulin properly. What causes hyperglycemia? A number of things can cause hyperglycemia: * If you have type 1, you may not have given yourself enough insulin. ? If you have type 2, your body may have enough insulin, but it is not as effective as it should be. * You ate more than planned or exercised less than planned. * You have stress from an illness, such as a cold or flu. * You have other stress, such as family conflicts or school or dating problems. How to lower your blood sugar level. ? Take medications as directed by physician. ? Drink extra water or noncaffeinated, nonsugared drinks to prevented hydration. ? Exercise if you are not sick However, if your blood sugar is above 250 mg/dl, check your urine for ketones. If you have ketones, do not exercise Exercising when ketones are present may make your blood sugar level go even higher. You'll need to work with your doctor to find the safest way for you to lower your blood sugar level. Regularly check blood sugar or urine for sugar and acetone during illness. Diabetic ketoacidosis (DKA) Is serious condition that can lead to diabetic coma (passing out for a long time) or even . When your cells don't get the glucose they need for energy, your body begins to burn fat for energy, which produces ketones. Ketones are chemicals that the body creates when it breaks down fat to use for energy. The body does this when it doesn?t have enough insulin to use glucose, the body?s normal source of energy. When ketones build up in the blood, they make it more acidic. They are a warning sign that your diabetes is out of control or that you are getting sick. Symptoms of Diabetic Ketoacidosis (DKA) ? DKA usually develops slowly. But when vomiting occurs, this life- threatening condition can develop in a few hours. Early symptoms include the following: ? Thirst or a very dry mouth ? Frequent urination ? High blood glucose (blood sugar) levels ? High levels of ketones in the urine ? Then, other symptoms appear: ? Constantly feeling tired ? Dry or flushed skin ? Nausea, vomiting, or abdominal pain ? (Vomiting can be caused by many illnesses, not just ketoacidosis. If vomiting continues for more than 2 hours, contact your health care provider.) ? Difficulty breathing ? Fruity odor on breath ? A hard time paying attention, or confusion When should you test for ketones? It is advisable to check for ketones under the following conditions when: Your blood glucose is higher than 250mg/dl. Feeling nauseated, throwing up, or have pains in your abdominal region. Have a cold or flu. Have general body fatigue. Feel thirsty or have a very dry mouth. Have flushed skin. Have a fruity breath or a hard time breathing. You feel perplexed or in fog. How to Test Urine for Ketones You can detect ketones with a simple urine test using a test strip, similar to a blood testing strip. Ask your health care provider when and how you should test for ketones. Many experts advise to check your urine for ketones when your blood glucose is more than 250 mg/dl. When you are ill (when you have a cold or the flu, for example), check for ketones every 4 to 6 hours. And check every 4 to 6 hours when your blood sugar is more than 250 mg/dl. Also, check for ketones when you have any symptoms of DKA. How to lower your blood sugar level. ? Take medications as directed by physician. ? Drink extra water or noncaffeinated, nonsugared drinks to prevented hydration. ? Exercise if you are not sick However, if your blood sugar is above 250 mg/dl, check your urine for ketones. If you have ketones, do not exercise Exercising when ketones are present may make your blood sugar level go even higher. You'll need to work with your doctor to find the safest way for you to lower your blood sugar level. Regularly check blood sugar or urine for sugar and acetone during illness 3 month f/u with nurses educator Coding Level of Care Code Est Pt Level 1 (10013) Diagnoses Uncontrolled type 1 diabetes mellitus with hyperglycemia, with long-term current use of insulin E10.65
== END 2023-12-10 09:52 | disposition home or self-care (01) ==
PROVIDERS: PCP Family Medicine; Visit Provider Registered Nurse Diabetes Educator
DX: E10.65 Type 1 diabetes mellitus with hyperglycemia (principal)

== ENCOUNTER → 2023-12-10 08:56 | Outpatient (BNVA) | payer OTHER, SELFPAY | PROVIDERS: PCP Family Medicine; Visit Provider Registered Nurse Diabetes Educator | DX: Z46.81 Encounter for fitting and adjustment of insulin pump (principal); E10.65 Type 1 diabetes mellitus with hyperglycemia | CPT/HCPCS: 99211 ==

== ENCOUNTER 2024-01-24 14:08 | Outpatient (AMB) | payer OTHER, SELFPAY ==
--- NOTE | 2024-01-24 14:27 | MHC.OFFVIS ---
Vital Signs 01/24/24 14:35 Height 6 ft 6 in Weight 288 lb 9.361 oz BMI 33.3 BP 116/60 Blood Pressure Location Rt brachial Position Sitting Pulse 64 Pulse Source Pulse Oximeter Intake Visit Reasons: T1DM Intake Note: Patient present today to follow up on Type 1 Diabetes Mellitus. Last Diabetic Eye exam: October 2023, has an upcoming appointment April 2024. 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 Accompanied by: Self / Same As Patient Allergies lisinopril Allergy (Severe, Verified 01/24/24 14:36) Swelling penicillin V Allergy (Unknown, Verified 01/24/24 14:36) hives Sulfa (Sulfonamide Antibiotics) Allergy (Unknown, Verified 01/24/24 14:36) hives synthetic insulin Allergy (Unknown, Uncoded 01/24/24 14:36) hives Medication List - Last Reconciled 01/24/24 by El Blackman MD acetone (urine) test (Ketone Urine Test strips) As directed amlodipine 10 mg PO QAM aspirin 162 mg PO DAILY blood sugar diagnostic As directed blood-glucose meter,continuous (Dexcom G7 Fruit Preserver) As directed blood-glucose sensor (Dexcom G7 Sensor device) As directed cetirizine 10 mg PO DAILY PRN cyanocobalamin (vitamin B-12) 500 mcg PO DAILY empagliflozin (Jardiance) 25 mg PO DAILY ezetimibe 10 mg PO DAILY fluticasone propionate 110 mcg/actuation 2 puffs PO BID fluticasone propionate 50 mcg/actuation 2 sprays intranasal DAILY insulin regular hum U-500 conc (Humulin R U-500 (Concentrated) Insulin) 200 units (0.4 mL) subcut DAILY L. gasseri-B. bifidum-B longum 1.5 billion cell ([employer]) 1 cap PO DAILY losartan 25 mg PO DAILY meclizine 25 mg PO TID PRN metformin ER 1,000 mg (2 x 500 mg) PO BID metoprolol succinate ER 200 mg PO QAM multivitamin 1 tab PO DAILY multivitamin with iron 1 tab PO DAILY pen needle, diabetic As directed rosuvastatin 40 mg PO DAILY HPI Comments Details: Patient is a 58-year-old male with DM type 1/JODI diagnosed at age 35 who presents for management of diabetes. He is karmen positive with preserve beta cell function. . He was forgetting his bolus with many snacks and meals. Past medical history: Dm 1/Jodi, hypertension, hyperlipidemia, primary immune deficiency disorder, rectal carcinoma status post resection, coronary artery disease with myocardial infarction at age 41, gammaglobuin anemia Micro and macrovascular complications: Neuropathy, mild nonproliferative diabetic retinopathy, bilateral, coronary artery disease. Diabetes medications: Metformin 1000 mg twice a day, Jardiance 25 mg QD Humulin U 500 in Tandem TSlim with Control IQ. In the past tried Ozempic, Januvia and was intolerant of both due to gi upset. Pump settings Basal rate(s) (units/hour) : 12AM? to 5AM? 0.5 units / hr 5AM? to 12PM? 0.8 units / hr 12PM to 11PM? 0.9 units / hr 11PM to 12AM 0.6 units / hr? Bolus setting Insulin Carbohydrate Ratio (s) 12AM? to 12AM? 1:10 Correction Factor / Sensitivity Factor 12AM? to 12AM? 1:60 Active Insulin Time:? Control IQ defaults to 5 hours Target(s): 12AM? to 12AM? 120 Not always bolusing before meals. His total daily insulin dose is 28.95 units in 24 hour 68% basal 32 % food bolus 5 % correction bolus 13% Control IQ bolus CGM: In the last 2 weeks with an average of 149 and G mi of 6.9%. 4.8 % less than 65. 68 % between 65- 170. 28% above 170. continuous glucose monitoring in use. Control IQ in use 87% of the time. 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 Encyclopedia Research Worker: awhile ago Dental exam: long time ago Ophthalmology evaluation: 09/2023 ou mild NPDR Labs received from [facility] 11/08/17 KARMEN negative C-Peptide 3.6 (fasting bg 163) islet cell antibody negative 10/26/16 GAD65 0.12 c-peptide 4.1 Had angioedema from lisinopril [facility] Medical History (Updated 03/23/22 @ 08:19 by El Blackman MD) Uncontrolled type 1 diabetes mellitus with hyperglycemia, with long-term current use of insulin B12 deficiency Primary immune deficiency disorder Hypertension Mild non proliferative diabetic retinopathy Obesity (BMI 30-39.9) 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 Absence of acromegalic features. Neck exam reveals nl size thyroid about 15 gms. No thyroid nodules palpable. No carotid bruits present. Lungs CTA. Heart S1 S2, Reg R/R. No M/R/ G. Skin exam reveals absence of vitiligo or acanthosis nigricans. Abdominal exam reveals Soft NT/ND with NA BS. No organomegaly present. Neck Other: . Extrem Other: Visual exam of foot performed. No ulcerations or open lesions. There is a scaly lesion on both extremities. There is also 2+ edema present bilaterally No onchomycosis, no callouses.Pulses 2 + distally Sensation intact to monofilament exam. Vibratory sensation sensed is intact with 128 Hz tuning fork Results AMB Hemoglobin A1c AMB Hemoglobin A1c 5.9 % Last Edit by MINO Lee on 01/24/24 14:57 Assessment & Plan Assessment & Plan (1) Uncontrolled type 1 diabetes mellitus with hyperglycemia, with long-term current use of insulin: Code(s): E10.65 - Type 1 diabetes mellitus with hyperglycemia Category: Medical Plan: This is a 58-year-old white male labeled as LAD a type 1 but most probably type 2 with insulin resistance considerin KARMEN and islet cell negative currently treated with metformin, and a tandem T- slim pump with excellent improved glycemic control and known microvascular and macrovascular complications namely retinopathy, neuropathy and CAD. He was having some overnight hypoglycemia The plan is to decrease the basal rate from 00:00 to 05:00 to 0.4 units/hr. follow up with the nurse practitioner Martha Akbar NP in 2 wks to see if recurrent hypoglycemia . Will also check lipid profile microalbumin to creatinine ratio. Patient states primary care provider may have done this already and will fax the results over Orders: Orders AMB Hemoglobin A1c Today E10.65 - Type 1 diabetes mellitus with hyperglycemia Coding Level of Care Code Est Pt Level 4 (06242) Diagnoses Uncontrolled type 1 diabetes mellitus with hyperglycemia, with long-term current use of insulin E10.65
[2024-01-24 14:35] VITALS: BP 116/60; PULSE 64; BMI 33.3
[2024-01-24 14:53] LABS: Glucose, Whole Blood 140 mg/dL (60-115)
== END 2024-01-24 15:09 | disposition home or self-care (01) ==
PROVIDERS: PCP Family Medicine; Visit Provider Internal Medicine Endocrinology, Diabetes & Metabolism
DX: E10.65 Type 1 diabetes mellitus with hyperglycemia (principal)
CPT/HCPCS: 99214

== ENCOUNTER → 2024-01-24 14:08 | Outpatient (BNVA) | payer OTHER, SELFPAY | PROVIDERS: PCP Family Medicine; Visit Provider Internal Medicine Endocrinology, Diabetes & Metabolism | DX: E10.65 Type 1 diabetes mellitus with hyperglycemia (principal); E53.8 Deficiency of other specified B group vitamins; Z79.84 Long term (current) use of oral hypoglycemic drugs; Z96.41 Presence of insulin pump (external) (internal) | CPT/HCPCS: 82947; 83036; 99212 ==

== ENCOUNTER 2024-02-07 13:24 | Outpatient (AMB) | payer OTHER, SELFPAY ==
--- NOTE | 2024-02-07 13:37 | A.OFFVIS_ITS ---
Vital Signs 02/07/24 13:39 Height 6 ft 6 in Weight 291 lb 0.163 oz BMI 33.6 BP 118/78 Blood Pressure Location Rt brachial Position Sitting Pulse 75 Pulse Source Pulse Oximeter Intake Visit Reasons: T1DM/CONFIRMED Intake Note: Patient presents today for to establish treatment for Type 2 Diabetes Mellitus: Last Diabetic eye exam was on: 10/2023 Last Podiatry exam was on: Does not see a Lead Pourer Most recent HbA1c: 5.9%, 01/24/2024 Random Glucose- 149mg/dL, Today Production Leader Required: No Accompanied by: Self / Same As Patient Allergies lisinopril Allergy (Severe, Verified 02/07/24 13:39) Swelling penicillin V Allergy (Unknown, Verified 02/07/24 13:39) hives Sulfa (Sulfonamide Antibiotics) Allergy (Unknown, Verified 02/07/24 13:39) hives synthetic insulin Allergy (Unknown, Uncoded 02/07/24 13:39) hives HPI Comments Details: Patient is a 58-year-old male with DM type 1/JODI diagnosed at age 35 who presents for management of diabetes. He is karmen positive with preserved beta cell function. He was last seen by Dr. Blackman 01/24/24. His most recent A1c was 5.9% 01/24/2024. Past medical history: Dm 1/Jodi, hypertension, hyperlipidemia, primary immune deficiency disorder, rectal carcinoma status post resection, coronary artery disease with myocardial infarction at age 41, gammaglobuin anemia Micro and macrovascular complications: Neuropathy, mild nonproliferative diabetic retinopathy, bilateral, coronary artery disease. Diabetes medications: Metformin 1000 mg twice a day, Jardiance 25 mg QD Humulin U 500 in Tandem TSlim with Control IQ. In the past tried Ozempic, Januvia and was intolerant of both due to gi upset. Dexcom average glucose: [ 161] 14 day continuous glucose monitor report reviewed TIme in ranges: [8.6 ] % very high (above 250) 28 % high ?(181-250) 59 % in range ?(70-180] 2.9 % low (69-55) 1.2 % ?very low (below 54) Total daily dose of insulin 35.3 (U 500 insulin equals 176.5 units basal 50% bolus 42% Interpretation [patient is having consistent lows at 3 in the morning ] Pump settings Basal rate(s) (units/hour) : 12AM? to 5AM? 0.4 units / hr 5AM? to 12PM? 0.8 units / hr 12PM to 11PM? 0.9 units / hr 11PM to 12AM 0.6 units / hr? Bolus setting Insulin Carbohydrate Ratio (s) 12AM? to 5:00 AM? 1:10 5AM to 12PM 1:10 12PM to 11PM 1:10 NEW 1:11 Correction Factor / Sensitivity Factor 12AM? to 5:00AM? 1:60 5:00AM to 12PM 1:55 12PM to 11:pm 1:55 11PM to 12AM 1:60 Active Insulin Time:? Control IQ defaults to 5 hours Target(s): 12AM? to 5AM? 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: currently Lead Pourer: awhile ago self care Ophthalmology evaluation: 09/2023 ou mild NPDR Labs received from [facility] 11/08/17 KARMEN negative C-Peptide 3.6 (fasting bg 163) islet cell antibody negative 10/26/16 GAD65 0.12 c-peptide 4.1 Had angioedema from lisinopril [facility] Medical History Uncontrolled type 1 diabetes mellitus with hyperglycemia, with long-term current use of insulin B12 deficiency Primary immune deficiency disorder Hypertension Mild non proliferative diabetic retinopathy Obesity (BMI 30-39.9) 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 Absence of acromegalic features. Neck exam reveals nl size thyroid about 15 gms. No thyroid nodules palpable. No carotid bruits present. Lungs CTA. Heart S1 S2, Reg R/R. No M/R G. Skin exam reveals vitiligo on neck no acanthosis nigricans. Extrem Other: Visual exam of foot performed. No ulcerations or open lesions. 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 Patient has microvascular and macrovascular complications namely retinopathy, neuropathy, nephropathy and CAD. He was having persistent overnight hypoglycemia. Insulin pump settings changed for target glucose 135 from 12:00am to 05:00am to lower the amount of correction insulin given she will control IQ and 12p to 11p carb ratio adjusted to give less insulin. This patient's recent A1c was 5.9% and in the face of hypoglycemia he has adjustments were warranted. Orders: Orders AMB Glucose Monitoring 02/07/24 E13.9 - Other specified diabetes mellitus without complications Medications: New glucagon 3 mg/actuation (Baqsimi) 3 mg intranasal .prn PRN 2 ea 1RF Unresponsive hypoglycemia 30 days MDD 6 mg E13.9 - Other specified diabetes mellitus without complications blood sugar diagnostic (Contour Test Strips) As directed prn sensor failure or to confirm glucose tid countour lite strips 50 ea 1RF E13.9 - Other specified diabetes mellitus without complications Patient Instructions: Backup pump plan Troubleshooting after starting new pod or inserting new insulin set: Occlusion, adhesive tape sensitivity, redness Check BG 2 hours after site change Safety information: Importance of a backup plan, for manual injections, proper prescriptions and emergency supplies ketone strips, and rules for testing for ketones The patient was counseled to always carry a source of sugar and on the rule of 15's: Take 3 glucose tablets and repeat again in 15 minutes if blood sugar is not in normal range. Continue to repeat every 15 minutes until blood sugar is normal. Symptoms of DKA were reviewed: early: frequent urination, dry mouth, fatigue, feeling ill, severe symptoms: ketones in the urine, abdominal pain, nausea, vomiting and weakness. It is important to hydrate with sugar free liquids every 30 minutes and bring the sugars down to normal levels. 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
[2024-02-07 13:39] VITALS: BP 118/78; PULSE 75; BMI 33.6
[2024-02-07 13:51] LABS: Glucose, Whole Blood 149 mg/dL (60-115)
== END 2024-02-07 14:20 | disposition home or self-care (01) ==
PROVIDERS: PCP Family Medicine; Visit Provider Nurse Practitioner Adult Health
DX: E13.9 Other specified diabetes mellitus without complications (principal)
CPT/HCPCS: 99214

== ENCOUNTER → 2024-02-07 13:24 | Outpatient (BNVA) | payer OTHER, SELFPAY | PROVIDERS: PCP Family Medicine; Visit Provider Nurse Practitioner Adult Health | DX: E13.9 Other specified diabetes mellitus without complications (principal); Z79.84 Long term (current) use of oral hypoglycemic drugs; Z79.4 Long term (current) use of insulin; Z46.81 Encounter for fitting and adjustment of insulin pump | CPT/HCPCS: 82947; 99212 ==

== ENCOUNTER 2024-03-11 09:22 | Outpatient (AMB) | payer OTHER, SELFPAY ==
--- NOTE | 2024-03-11 09:54 | A.OFFVIS_ITS ---
Intake Intake Visit Reasons: 60 min-conf Allergies lisinopril Allergy (Severe, Verified 02/07/24 13:39) Swelling penicillin V Allergy (Unknown, Verified 02/07/24 13:39) hives Sulfa (Sulfonamide Antibiotics) Allergy (Unknown, Verified 02/07/24 13:39) hives synthetic insulin Allergy (Unknown, Uncoded 02/07/24 13:39) hives HPI Comprehensive Diabetes Asmnt Most Recent Diabetes Results: Microalb/Creat Ratio 177.1 ug/mg cr 07/29/20 Cholesterol 115 mg/dL 07/29/20 HDL Cholesterol 31 mg/dL 07/29/20 Triglycerides 180 mg/dL 07/29/20 Creatinine 0.73 mg/dL (0.5-1.4) 10/22/23 Blood Urea Nitrogen 13 mg/dL (9-16) 10/22/23 Sodium 146 mmol/L (135-145) H 10/22/23 Potassium 3.5 mmol/L (3.3-5.1) 10/22/23 Chloride 104 mmol/L (96-108) 10/22/23 Carbon Dioxide 30 mmol/L (22-29) H 10/22/23 Calcium 9.3 mg/dL (8.4-10.2) 10/22/23 AST 50 U/L (5-37) H 07/29/20 ALT 50 U/L (0-40) H 07/29/20 Total Protein 7.1 g/dL (6.5-8.0) 07/29/20 Albumin 4.1 g/dL (3.5-5.0) 07/29/20 [facility] Medical History Uncontrolled type 1 diabetes mellitus with hyperglycemia, with long-term current use of insulin B12 deficiency Primary immune deficiency disorder Hypertension Mild non proliferative diabetic retinopathy Obesity (BMI 30-39.9) 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), managed as type 1 Dyslipidemia Surgical History H/O hand surgery Hx of knee surgery History of testicular surgery Hx of tonsillectomy Hx of colonoscopy History of appendectomy Family History Father HTN (hypertension) Mother Thyroid disease Hypercholesterolemia Brother Diabetes mellitus Social History Household Members: None Alcohol intake: never Patient Tobacco Use Status: Never used Tobacco Assessment & Plan Assessment & Plan (1) Uncontrolled type 1 diabetes mellitus with hyperglycemia, with long-term current use of insulin: Code(s): E10.65 - Type 1 diabetes mellitus with hyperglycemia Plan: Patient presents for pump training for? T slim with control IQ and Dexcom G6 The following topics were reviewed today: -? calibrating Dexcom G6 sensor ??? High Alert: 200 mg/dl ??? Low Alert: 70 mg/dl? Restarted high alert and low alert on patient's cellphone Patient's average glucose for the past 3 days to 157 mg/dL Patient above target 31% Patient target 67% Patient below target 2.4% Patient's last A1c 5.9% 01/24/24 Patient is still not bolusing for all meals, also reports that he did not like the Dexcom G7 so has gone back to using Dexcom G6 with T slim Patient still experiencing hypoglycemia overnight, reduced basal rate from 16:00 on to try and alleviate overnight hypoglycemia Reviewed with patient rules about when to test for ketones, instructions given to patient. Pt reports he has picked up ketone strips Patient reports he has been using test strips in his contour meter that he received approximately 6 or 7 years ago with his Medtronic 670 G At today's visit patient given new contour meter, date and time has been set. Looked up cost of contour next test strips, patient reports he believes error affordable and will replace meter and strips . Patient upgraded pump for new sensor, patient given sample Dexcom G7 sensor to use, when his next G 6 sensor expires. Insulin delivery setting: Troubleshooting after starting new pod or inserting new insulin set: Occlusion, adhesive tape sensitivity, redness Check BG 2 hours after site change ?Setting verified by CDCES. See changes made to patient's pump setting at this visit Basal rate(s) (units/hour) : 12AM? to 5AM? 0.4 units / hr 5AM? to 12PM? 0.8 units / hr 12PM to 4 PM? 0.9 units / hr New 4PM to 12AM 0.5 units / hr? Bolus setting Insulin Carbohydrate Ratio (s) 12AM? to 12PM? 1:10 12PM to 12AM 1:11 Correction Factor / Sensitivity Factor 12AM? to 5 AM? 1:60 5 AM to 11 PM 1:55 11PM to 12AM 1:60 Active Insulin Time:? Control IQ defaults to 5 hours Target(s): 12AM? to 12AM? 120 Pump Activities Sleep Schedule: On Coding Level of Care Code Est Pt Level 1 (59314) Diagnoses Uncontrolled type 1 diabetes mellitus with hyperglycemia, with long-term current use of insulin E10.65
== END 2024-03-11 10:11 | disposition home or self-care (01) ==
PROVIDERS: PCP Family Medicine; Visit Provider Registered Nurse Diabetes Educator
DX: E10.65 Type 1 diabetes mellitus with hyperglycemia (principal)

== ENCOUNTER → 2024-03-11 09:22 | Outpatient (BNVA) | payer OTHER, SELFPAY | PROVIDERS: PCP Family Medicine; Visit Provider Registered Nurse Diabetes Educator | DX: Z46.81 Encounter for fitting and adjustment of insulin pump (principal); E10.65 Type 1 diabetes mellitus with hyperglycemia; Z79.4 Long term (current) use of insulin | CPT/HCPCS: 99211 ==

== ENCOUNTER 2024-05-08 13:00 | Outpatient (AMB) | payer OTHER, SELFPAY ==
--- NOTE | 2024-05-08 13:08 | A.OFFVIS_ITS ---
Vital Signs 05/08/24 13:13 Height 6 ft 6 in Weight 291 lb 0.163 oz BMI 33.6 BP 124/72 Blood Pressure Location Rt brachial Position Sitting Pulse 63 Pulse Source Pulse Oximeter Intake Visit Reasons: T1DM Intake Note: Patient presents here today for a follow-up on Type 1 Diabetes Mellitus: Last Diabetic eye exam was on: 10/2023 Last Podiatry exam was on: Does not see a Emergency Room Clinician Most recent HbA1c: 6.8%, 05/08/2024 Random Glucose- 190 mg/dL, Today C Iron Worker Required: No Accompanied by: Self / Same As Patient Allergies lisinopril Allergy (Severe, Verified 02/07/24 13:39) Swelling penicillin V Allergy (Unknown, Verified 02/07/24 13:39) hives Sulfa (Sulfonamide Antibiotics) Allergy (Unknown, Verified 02/07/24 13:39) hives synthetic insulin Allergy (Unknown, Uncoded 02/07/24 13:39) hives Medication List - Last Reconciled 05/08/24 by El Blackman MD acetone (urine) test (Ketone Urine Test strips) As directed amlodipine 10 mg PO QAM aspirin 162 mg PO DAILY blood sugar diagnostic As directed blood sugar diagnostic (Contour Test Strips) As directed prn sensor failure or to confirm glucose tid countour lite strips blood-glucose meter,continuous (Dexcom G7 Director Of Psychiatry) As directed blood-glucose sensor (Dexcom G6 Sensor device) USE TO MONITOR BLOOD SUGAR, CHANGE SENSOR EVERY 10 DAYS DIRECTED cetirizine 10 mg PO DAILY PRN cyanocobalamin (vitamin B-12) 500 mcg PO DAILY empagliflozin (Jardiance) 25 mg PO DAILY ezetimibe 10 mg PO DAILY fluticasone propionate 110 mcg/actuation 2 puffs PO BID fluticasone propionate 50 mcg/actuation 2 sprays intranasal DAILY glucagon 3 mg/actuation (Baqsimi) 3 mg intranasal .prn PRN 30 days MDD 6 mg insulin regular hum U-500 conc (Humulin R U-500 (Concentrated) Insulin) 200 units (0.4 mL) subcut DAILY L. gasseri-B. bifidum-B longum 1.5 billion cell (Gigmax) 1 cap PO DAILY losartan 25 mg PO DAILY meclizine 25 mg PO TID PRN metformin ER 1,000 mg (2 x 500 mg) PO BID metoprolol succinate ER 200 mg PO QAM multivitamin 1 tab PO DAILY multivitamin with iron 1 tab PO DAILY pen needle, diabetic As directed rosuvastatin 40 mg PO DAILY HPI Comments Details: Patient is a 59-year-old male with DM type 1/JODI diagnosed at age 35 who presents for management of diabetes. He is karmen positive with preserve beta cell function. . He was forgetting his bolus with many snacks and meals. Past medical history: Dm 1/Jodi, hypertension, hyperlipidemia, primary immune deficiency disorder, rectal carcinoma status post resection, coronary artery disease with myocardial infarction at age 41, gammaglobuin anemia Micro and macrovascular complications: Neuropathy, mild nonproliferative diabetic retinopathy, bilateral, coronary artery disease. Diabetes medications: Metformin 1000 mg twice a day, Jardiance 25 mg QD Humulin U 500 in Tandem TSlim with Control IQ. In the past tried Ozempic, Januvia and was intolerant of both due to gi upset. pump setting at this visit Basal rate(s) (units/hour) : 12AM? to 5AM? 0.4 units / hr 5AM? to 12PM? 0.8 units / hr 12PM to 4 PM? 0.9 units / hr 4PM to 12AM 0.5 units / hr? Bolus setting Insulin Carbohydrate Ratio (s) 12AM? to 12PM? 1:10 12PM to 12AM 1:11 Correction Factor / Sensitivity Factor 12AM? to 5 AM? 1:60 5 AM to 12 AM 1:55 Active Insulin Time:? Control IQ defaults to 5 hours Target(s): 12AM? to 12AM? 120 Pump Activities Sleep Schedule: On His total daily insulin dose is 24.13 units in 24 hour 67% basal 33 % food bolus 5 % correction bolus 13% Control IQ bolus CGM: In the last 2 weeks with an average of 151 and G mi of 6.9%. 2.1 % less than 65. 70 % between 65- 170. 26% above 170. continuous glucose monitoring in use. Control IQ in use 95% of the time. Pattern shows overnight hypoglycemia Symptoms reported: denies numbness, tingling, cramping in lower extremities Hypoglycemia: limited occasional overnight : Exercise: limited Resident Service Coordinator - CDE education: currently Emergency Room Clinician: awhile ago Dental exam: long time ago Ophthalmology evaluation: ou mild NPDR Labs received from [facility] 11/08/17 KARMEN negative C-Peptide 3.6 (fasting bg 163) islet cell antibody negative 10/26/16 GAD65 0.12 c-peptide 4.1 Had angioedema from lisinopril [facility] Medical History Uncontrolled type 1 diabetes mellitus with hyperglycemia, with long-term current use of insulin B12 deficiency Primary immune deficiency disorder Hypertension Mild non proliferative diabetic retinopathy Obesity (BMI 30-39.9) 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 Absence of acromegalic features. Neck exam reveals nl size thyroid about 15 gms. No thyroid nodules palpable. No carotid bruits present. Lungs CTA. Heart S1 S2, Reg R/R. No M/R/ G. Skin exam reveals absence of vitiligo or acanthosis nigricans. Abdominal exam reveals Soft NT/ND with NA BS. No organomegaly present. Neck Other: . Extrem Other: Visual exam of foot performed. No ulcerations or open lesions. There is a scaly lesion on both extremities. There is also 2+ edema present bilaterally No onchomycosis, no callouses.Pulses 2 + distally Sensation intact to monofilament exam. Vibratory sensation sensed is intact with 128 Hz tuning fork Results AMB Hemoglobin A1c AMB Hemoglobin A1c 6.8 % Last Edit by MINO Lange on 05/08/24 13:25 Assessment & Plan Assessment & Plan (1) Uncontrolled type 1 diabetes mellitus with hyperglycemia, with long-term current use of insulin: Code(s): E10.65 - Type 1 diabetes mellitus with hyperglycemia Category: Medical Plan: This is a 59-year-old white male labeled as LAD a type 1 but most probably type 2 with insulin resistance considerin KARMEN and islet cell negative currently treated with metformin, and a tandem T- slim pump with excellent improved glycemic control and known microvascular and macrovascular complications namely retinopathy, neuropathy and CAD. The plan is to continue current therapy. Will also check lipid profile microalbumin to creatinine ratio. Can follow up with Martha Akbar NP in 3 mos Orders: Orders AMB Hemoglobin A1c Today E10.65 - Type 1 diabetes mellitus with hyperglycemia Referrals Podiatry Referral E10.65 - Type 1 diabetes mellitus with hyperglycemia Coding Level of Care Code Est Pt Level 4 (39165) Complex EM visit Add On G2211 Diagnoses Uncontrolled type 1 diabetes mellitus with hyperglycemia, with long-term current use of insulin E10.65
[2024-05-08 13:13] VITALS: BP 124/72; PULSE 63; BMI 33.6
[2024-05-08 16:17] LABS: Glucose, Whole Blood 190 mg/dL (60-115)
== END 2024-05-08 13:42 | disposition home or self-care (01) ==
PROVIDERS: PCP Family Medicine; Visit Provider Internal Medicine Endocrinology, Diabetes & Metabolism
DX: E10.65 Type 1 diabetes mellitus with hyperglycemia (principal)
CPT/HCPCS: 99214; G2211

== ENCOUNTER → 2024-05-08 13:00 | Outpatient (BNVA) | payer OTHER, SELFPAY | PROVIDERS: PCP Family Medicine; Visit Provider Internal Medicine Endocrinology, Diabetes & Metabolism | DX: E10.65 Type 1 diabetes mellitus with hyperglycemia (principal); E10.40 Type 1 diabetes mellitus with diabetic neuropathy, unspecified; E10.3299 Type 1 diabetes mellitus with mild nonproliferative diabetic retinopathy without macular edema, unspecified eye; Z79.84 Long term (current) use of oral hypoglycemic drugs; Z79.4 Long term (current) use of insulin; Z96.41 Presence of insulin pump (external) (internal) | CPT/HCPCS: 82947; 83036; 99212 ==

== ENCOUNTER 2024-07-14 08:55 | Outpatient (AMB) | payer OTHER, SELFPAY ==
--- NOTE | 2024-07-14 09:26 | MHC.AMDMED ---
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 Required: No Accompanied by: Self / Same As Patient Allergies lisinopril Allergy (Severe, Verified 02/07/24 13:39) Swelling penicillin V Allergy (Unknown, Verified 02/07/24 13:39) hives Sulfa (Sulfonamide Antibiotics) Allergy (Unknown, Verified 02/07/24 13:39) hives synthetic insulin Allergy (Unknown, Uncoded 02/07/24 13:39) hives HPI Comprehensive Diabetes Asmnt Most Recent Diabetes Results: Microalb/Creat Ratio 177.1 ug/mg cr 07/29/20 Cholesterol 115 mg/dL 07/29/20 HDL Cholesterol 31 mg/dL 07/29/20 Triglycerides 180 mg/dL 07/29/20 Creatinine 0.73 mg/dL (0.5-1.4) 10/22/23 Blood Urea Nitrogen 13 mg/dL (9-16) 10/22/23 Sodium 146 mmol/L (135-145) H 10/22/23 Potassium 3.5 mmol/L (3.3-5.1) 10/22/23 Chloride 104 mmol/L (96-108) 10/22/23 Carbon Dioxide 30 mmol/L (22-29) H 10/22/23 Calcium 9.3 mg/dL (8.4-10.2) 10/22/23 AST 50 U/L (5-37) H 07/29/20 ALT 50 U/L (0-40) H 07/29/20 Total Protein 7.1 g/dL (6.5-8.0) 07/29/20 Albumin 4.1 g/dL (3.5-5.0) 07/29/20 [facility] Medical History Uncontrolled type 1 diabetes mellitus with hyperglycemia, with long-term current use of insulin B12 deficiency Primary immune deficiency disorder Hypertension Mild non proliferative diabetic retinopathy Obesity (BMI 30-39.9) 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), managed as type 1 Dyslipidemia Surgical History H/O hand surgery Hx of knee surgery History of testicular surgery Hx of tonsillectomy Hx of colonoscopy History of appendectomy Family History Father HTN (hypertension) Mother Thyroid disease Hypercholesterolemia Brother Diabetes mellitus Social History Household Members: None Alcohol intake: never Patient Tobacco Use Status: Never used Tobacco Assessment & Plan Assessment & Plan (1) 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 T slim with control IQ and Dexcom G6 The following topics were reviewed today: -? calibrating Dexcom G6 sensor ??? High Alert: 200 mg/dl ??? Low Alert: 70 mg/dl? Restarted high alert and low alert on patient's cellphone Patient's average glucose for the past 3 days to 192 mg/dL Patient above target 54% Patient target 42% Patient below target 1% Patient's last A1c 6.8% 05/08/24 Patient is still not bolusing for all meals, also reports that he did not like the Dexcom G7 so has gone back to using Dexcom G6 wiith T slim Pt is having less hypos since last visit, using sweet tarts to treat low glucose Pt is changing insulin delivery set on average of every 6 days, encouraged Pt to change every 72 hrs. Patient is using on average U 500 35 units daily. Reports putting 200-240 units in pump cartridge at each change. Recommended to patient he only put 120-130 units at cartridge change. Changing insulin delivery set more frequently should result in better absorption of insulin. Insulin delivery setting: Troubleshooting after starting new pod or inserting new insulin set: Occlusion, adhesive tape sensitivity, redness Check BG 2 hours after site change ?Setting verified by CDCES. No Changes to pump setting Basal rate(s) (units/hour) : 12AM? to 5AM? 0.4 units / hr 5AM? to 12PM? 0.8 units / hr 12PM to 4 PM? 0.9 units / hr 4PM to 12AM 0.5 units / hr? Bolus setting Insulin Carbohydrate Ratio (s) 12AM? to 12PM? 1:10 12PM to 12AM 1:11 Correction Factor / Sensitivity Factor 12AM? to 5 AM? 1:60 5 AM to 11 PM 1:55 11PM to 12AM 1:60 Active Insulin Time:? Control IQ defaults to 5 hours Target(s): 12AM? to 12AM? 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
== END 2024-07-14 09:45 | disposition home or self-care (01) ==
PROVIDERS: PCP Family Medicine; Visit Provider Registered Nurse Diabetes Educator
DX: E13.9 Other specified diabetes mellitus without complications (principal)

== ENCOUNTER → 2024-07-14 08:55 | Outpatient (BNVA) | payer OTHER, SELFPAY | PROVIDERS: PCP Family Medicine; Visit Provider Registered Nurse Diabetes Educator | DX: Z46.81 Encounter for fitting and adjustment of insulin pump (principal); E13.9 Other specified diabetes mellitus without complications | CPT/HCPCS: 99211 ==

== ENCOUNTER 2024-08-07 15:05 | Outpatient (AMB) | payer OTHER, SELFPAY ==
--- NOTE | 2024-08-07 11:28 | A.OFFVIS_ITS ---
Vital Signs 08/07/24 15:19 Height 6 ft 6 in Weight 295 lb 6.711 oz BMI 34.1 BP 132/70 Blood Pressure Location Rt brachial Position Sitting Pulse 68 Pulse Source Pulse Oximeter Pulse Oximetry (%) 96 Oxygen Delivery Method Room Air Intake Visit Reasons: f/u TYpe 1 DM JODI Intake Note: Patient presents here today for a follow-up on Type 1 Diabetes Mellitus: Last Diabetic eye exam was on: 10/2023 Last Podiatry exam was on: Does not see a Clinical Resource Manager Most recent HbA1c: 8.2%, 08/07/2024 Random Glucose- 238 mg/dL, Today Automation Specialist Required: No Accompanied by: Self / Same As Patient Allergies lisinopril Allergy (Severe, Verified 08/07/24 15:20) Swelling penicillin V Allergy (Unknown, Verified 08/07/24 15:20) hives Sulfa (Sulfonamide Antibiotics) Allergy (Unknown, Verified 08/07/24 15:20) hives synthetic insulin Allergy (Unknown, Uncoded 08/07/24 15:20) hives januvia Adverse Reaction (Mild, Uncoded 08/07/24 15:20) Gastrointestinal Upset ozempic Adverse Reaction (Mild, Uncoded 08/07/24 15:20) Abdominal Pain Medication List - Last Reconciled 08/08/24 by Martha Lopez NP acetone (urine) test (Ketone Urine Test strips) As directed amlodipine 10 mg PO QAM aspirin 162 mg PO DAILY blood sugar diagnostic As directed blood sugar diagnostic (Contour Test Strips) As directed prn sensor failure or to confirm glucose tid countour lite strips blood-glucose sensor (Dexcom G6 Sensor device) USE TO MONITOR BLOOD SUGAR, CHANGE SENSOR EVERY 10 DAYS DIRECTED blood-glucose transmitter (Dexcom G6 Transmitter device) DIRECTED cetirizine 10 mg PO DAILY PRN cyanocobalamin (vitamin B-12) 500 mcg PO DAILY empagliflozin (Jardiance) 25 mg PO DAILY ezetimibe 10 mg PO DAILY fluticasone propionate 110 mcg/actuation 2 puffs PO BID fluticasone propionate 50 mcg/actuation 2 sprays intranasal DAILY glucagon 3 mg/actuation (Baqsimi) 3 mg intranasal .prn PRN 30 days MDD 6 mg insulin regular hum U-500 conc (Humulin R U-500 (Concentrated) Insulin) 200 units (0.4 mL) subcut DAILY L. gasseri-B. bifidum-B longum 1.5 billion cell (Get Satisfaction) 1 cap PO DAILY meclizine 25 mg PO TID PRN metformin ER 1,000 mg (2 x 500 mg) PO BID metoprolol succinate ER 200 mg PO QAM multivitamin 1 tab PO DAILY multivitamin with iron 1 tab PO DAILY pen needle, diabetic As directed rosuvastatin 40 mg PO DAILY spironolactone 25 mg PO DAILY HPI Comments Details: Patient is a 59-year-old male with DM type 1/JODI diagnosed at age 35 who presents for management of diabetes. He is karmen positive with preserved beta cell function. Micro and macrovascular complications: Neuropathy, mild nonproliferative diabetic retinopathy, bilateral, coronary artery disease. In the past tried Ozempic, Januvia and was intolerant of both due to gi upset. Was recently seen by hole filler for low potassium 3.2. Arb was discontinued and he was started on spironolactone 25 mg. See scanned lab Diabetes medications: Metformin 1000 mg twice a day, Jardiance 25 mg QD Humulin U 500 in Tandem TSlim with Control IQ. Total daily dose of insulin 143 units Total daily basal 63% 91 units Total daily bolus 37% 52 units pump setting at this visit Basal rate(s) (units/hour) : 12AM? to 5AM? 0.4 units / hr 5AM? to 12PM? 0.8 units / hr 12PM to 4 PM? 0.9 units / hr 4PM to 12AM 0.5 units / hr? Bolus setting Insulin Carbohydrate Ratio (s) 12AM? to 12PM? 1:10 12PM to 12AM 1:11 New 1:10 Correction Factor / Sensitivity Factor 12AM? to 5 AM? 1:60 5 AM to 12 AM 1:55 Active Insulin Time:? Control IQ defaults to 5 hours Target(s): 12AM? to 12AM? 120 Dexcom average glucose: 206 14 day continuous glucose monitor report reviewed Glucose Managment indicator [ ] % Days with CGM data 65 % TIme in ranges: Thirty % very high (above 250) 26 % high ?(181-250) 44 % in range ?(70-180] 0 % low (69-55) 0 % ?very low (below 54) Interpretation [patient is 150 carbs per day he is in control IQ 66% of the time sleep activity 36% of the time Overnight his readings gradually dip to baseline and then they go up after he eats lunch. He is not always bolusing before the meal ] Denies neuropathy Symptoms reported: denies numbness, tingling, cramping in lower extremities Hypoglycemia: limited occasional overnight : Exercise: limited Electrical Controls Designer - CDE education: currently Clinical Resource Manager: awhile ago Denies neuropathy symptoms: No numbness, tingling, cramping or pain in the lower extremity Has retinopathy: Ophthalmology evaluation: ou mild NPDR N0 nephropathy: [id number] [email or web address] labs 05/07/24 Has CAD As HLD on statin ldl 61 no recent lipid profile Labs received from [employer] 08/02/2024 Osmolality urine 676 Osmolality blood 290 potassium 3.2 chloride 94 phosphorus 2.7 EGFR 101 creatinine 0.82 LDL cholesterol 19 11/08/17 KARMEN negative C-Peptide 3.6 (fasting bg 163) islet cell antibody negative 10/26/16 GAD65 0.12 c-peptide 4.1 Had angioedema from lisinopril [facility] Medical History Uncontrolled type 1 diabetes mellitus with hyperglycemia, with long-term current use of insulin B12 deficiency Primary immune deficiency disorder Hypertension Mild non proliferative diabetic retinopathy Obesity (BMI 30-39.9) 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), managed as type 1 Dyslipidemia Surgical History H/O hand surgery Hx of knee surgery History of testicular surgery Hx of tonsillectomy Hx of colonoscopy History of appendectomy Family History Father HTN (hypertension) Mother Thyroid disease Hypercholesterolemia Brother Diabetes mellitus Social History Household Members: None Alcohol intake: never Patient Tobacco Use Status: Never used Tobacco Physical Exam Vital Signs: Last Vital Signs Pulse 68 08/07/24 15:19 BP 132/70 08/07/24 15:19 Pulse Ox 96 08/07/24 15:19 Oxygen Delivery Method Room Air 08/07/24 15:19 BMI result Body Mass Index 34.1 Const Other: Absence of Cushingoid features. Absence of acromegalic features. Neck exam reveals nl size thyroid about 15 gms. No thyroid nodules palpable. Heart S1 S2, Reg R/R. No M/R G. Skin exam reveals absence of vitiligo or acanthosis nigricans. Visual exam of foot performed. No ulcerations or open lesions. No inter digit maceration or fissuring. +onychomycosis nail beds, no callouses. Sensation decreased monofilament exam. Vibratory sensation is decreased with 128 Hz tuning fork. 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 The patient has insulin resistance on U500 in a pump And has worsening A1c. His insulin carbohydrate ratio was lowered to give him more pre-prandial insulin at lunchtime. We had a lengthy discussion with the patient that he needs to bolus before the meal not afterwards as when this occurs his sugar is up for multiple hours at a time. The relationship between developing diabetic complications and time in range/A1c were discussed Orders: Orders AMB Hemoglobin A1c 08/07/24 E10.65 - Type 1 diabetes mellitus with hyperglycemia AMB Glucose Monitoring Today E13.9 - Other specified diabetes mellitus without complications Patient Instructions: Take 15 carb carbohydrate grams to treat a low sugar (3-4 glucose tablets, half a glass of juice or 15 carbohydrate grams of soft candy such as gummie snacks). Recheck your sugar in 15 minutes and re-treat again with 15 carbohydrate grams if low or still with symptoms. Do not drive a car or operate machinery if you do not know what your blood sugar is, if it is low or in excess of 300. The patient was counseled to achieve a target A1C of 7% (154 avg). Fasting blood sugars should be 90-130 in the morning and less than 180 two hours after meals. Reviewed the relationship between poor diabetic control and the development of complications. Check your feet daily looking for any signs of infection, drainage, redness, ulceration and seek medical attention if this occurs. Break in shoes gradually and do not wear open-toed shoes or walk stocking footed or barefooted. Symptoms of DKA (diabetic ketoacidosis): early: frequent urination, dry mouth, fatigue, feeling ill, severe symptoms: ketones in the urine, abdominal pain, nausea, vomiting and weakness. It is important to hydrate with sugar free liquids every 15-30 minutes and bring the sugars down to normal levels. If you are moderate or severe with ketones or unable to bring glucose to less than 200, go to the emergency room. 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
[2024-08-07 15:19] VITALS: BP 132/70; PULSE 68; O2SAT 96; BMI 34.1
[2024-08-07 15:27] LABS: Glucose, Whole Blood 238 mg/dL (60-115)
--- OUTSIDE RECORDS SUMMARY | 2024-08-07 18:37 | XMS_ITS | Encounter Summary ---
Author Organization [facility] Address [address] [place] [address] Care Team Providers Care Sub Assembly Team Worker Name Role Phone Rere Rosas MD Primary Care Provider Unava ilable Encounter Details Date Type Department Care Team Description 05/16/2019 Old Medical Records Medical Records [address] [place] [id number] Abstract, Provider Social History Tobacco Use Types Packs/Day Years Used Date Smoking Tobacco: Never Smokeless Tobacco: Never Alcohol Use Standard Drinks/Week Comments No 0 (1 standard drink = 0.6 oz pur e alcohol) Sex Assigned at Date Recorded Not on file documented as of this encounter Plan of Treatment Not on file documented as of this encounter Visit Diagnoses Not on filedocumented in this encounter Care Teams Sub Assembly Team Worker Relationship Specialty Start Date End Date Rere Rosas MD PCP - General Family Practice 06/04/14 documented as of this encounter
--- OUTSIDE RECORDS SUMMARY | 2024-08-07 18:37 | XMS_ITS | Encounter Summary ---
Author Organization [facility] Address [address] [address] Phone Care Team Providers Care Grain Sacker Name Role Phone Sonja Cobb MD Primary Care Provider [phone] Reason for Visit * Reason Comments Abnormal Sodium Encounter Details Date Type Department Care Team (Latest Contact Info) Description 08/06/2024 1:30 PM EST Office Visit [facility] [address] [place] [id number] Prem Hernandez MD [address] [address] Hypernatremia (Primary Dx); Hypokalemia; Hypertension; Diabetes mellitus, not otherwise specified (HCC) Social History Tobacco Use Types Packs/Day Years Used Date Smoking Tobacco: Never Assessed Sex and Gender Information Value Date Recorded Sex Assigned at Not on file Legal Sex Male 1:45 PM EST Gender Identity Not on file Sexual Orientation Not on file documented as of this encounter Last Filed Vital Signs Vital Sign Reading Time Taken Comments Blood Pressure 123/67 08/06/2024 1:17 PM EST Pulse 65 08/06/2024 1:17 PM EST Temperature - - Respiratory Rate - - Oxygen Saturation - - Inhaled Oxygen Concentration - - Weight 134 kg (295 lb) 08/06/2024 1:17 PM EST Height - - Body Mass Index - - documented in this encounter Progress Notes * Prem Hernandez MD - 08/06/2024 1:30 PM EST [facility] Patient Name: Clayton Clarke, Male Date of : 1965, 59 y.o. Date: 08/06/2024 Referring MD: No primary care provider on file. PCP: Sonja Cobb MD Reason For Visit: I had the pleasure of seeing your patient for follow up elevated serum sodium.?? The following portions of the patient's chart were reviewed in this encounter and updated as appropriate: Allergies Meds Problems Med Hx Surg Hx Fam Hx Constitutional: Negative for chills, fever, malaise/fatigue and weight loss. HENT: Negative for ear pain, hearing loss and tinnitus. Eyes: Negative for blurred vision, double vision, photophobia and pain. Respiratory: Negative for cough, hemoptysis, sputum production, shortness of breath and wheezing. Cardiovascular: Negative for chest pain, palpitations, orthopnea, claudication and leg swelling. Gastrointestinal: Negative for abdominal pain, diarrhea, nausea and vomiting. Genitourinary: Negative for dysuria, flank pain, frequency, hematuria and urgency. Musculoskeletal: Negative for myalgias. Skin: Negative for itching and rash. Neurological: Negative for dizziness, tingling and headaches. Psychiatric/Behavioral: Negative for depression. Full 13 point review of systems unremarkable except as noted above. History reviewed. No pertinent past medical history. Past Surgical History: Procedure Laterality Date COLONOSCOPY TOTAL KNEE ARTHROPLASTY Social History Tobacco Use Smoking status: Not on file Smokeless tobacco: Not on file Substance Use Topics Alcohol use: Not on file History reviewed. No pertinent family history. Current Outpatient Medications Medication Sig Dispense Refill Albuterol Sulfate, sensor, (ProAir Digihaler) 108 (90 Base) MCG/ACT aerosol powder Inhale amLODIPine (NORVASC) 10 MG tablet Take 10 mg by mouth aspirin (ST CHANDANA) 81 MG EC tablet Take 81 mg by mouth Bacillus Coagulans-Inulin (Probiotic Formula) 1-250 BILLION-MG capsule Take 1 capsule by mouth Calcium-Vitamin D-Vitamin K 500-200-40 MG-UNT-MCG chewable tablet Chew 25 mcg Continuous Glucose Sensor (Dexcom G6 Sensor) misc Continuous Glucose Transmitter (Dexcom G6 Transmitter) misc See administration instructions Cyanocobalamin [address] under the tongue EPINEPHrine (EPIPEN) 0.3 MG/0.3ML injection syringe ezetimibe (ZETIA) 10 MG tablet Take 10 mg by mouth 1 (one) time each day ferrous sulfate 325 (65 Fe) MG tablet Take 1 tablet by mouth fluticasone (FLONASE) 50 MCG/ACT nasal spray shake liquid and use 2 sprays in each nostril daily immune globulin, human, infusion Inject as directed. 60gm every 3 weeks Insulin Lispro 100 UNIT/ML solution SUBCUTANEOUS, SOLUTION, 0 Refill(s),, 0 Refills, 01/26/19 13:11:00 EDT Jardiance 25 MG tablet Take by mouth 1 (one) time each day losartan (COZAAR) 25 MG tablet Take 25 mg by mouth 1 (one) time each day meclizine (ANTIVERT) 25 MG tablet Take 25 mg by mouth metFORMIN (GLUCOPHAGE) 500 MG tablet Take 1,000 mg by mouth metoprolol succinate XL (TOPROL-XL) 200 MG 24 hr tablet Take 1 tablet by mouth Multiple Vitamin (Multi-Vitamin) tablet Take by mouth [place]-3 1000 MG capsule Take by mouth rosuvastatin (CRESTOR) 40 MG tablet Take 40 mg by mouth 1 (one) time each day spironolactone (Aldactone) 25 MG tablet Take 1 tablet (25 mg total) by mouth 1 (one) time each day 30 tablet 11 No current facility-administered medications for this visit. Allergies Allergen Reactions Acetazolamide Other Reaction(s): unsure Insulins Hives Other Reaction(s): rash,hives,angioedema, synthetic insulin:angioedema,rash,hives Synthetic insulin. Able to tolerate human insulin Lisinopril Swelling Penicillins Hives, Other (see comments), Rash and Swelling Other Reaction(s): Other (See Comments) Tolerates ceftriaxone Sulfa Antibiotics Hives and Rash Objective: Vitals: 08/06/24 1317 BP: 123/67 Pulse: 65 Weight: 295 lb (134 kg) Physical Exam Constitutional: Oriented to person, place, and time. HEENT: Mouth/Throat: Oropharynx is clear and moist. Eyes: Pupils are equal, round, and reactive to light. Neck: No JVD present. Cardiovascular: Regular rhythm. Pulmonary/Chest: Breath sounds normal. Abdominal: Soft. There is no abdominal tenderness. Musculoskeletal: Normal range of motion. Neurological: Alert and oriented to person, place, and time. Skin: Skin is warm. Psychiatric: Normal mood and affect. No results found for: EGFRAFR No results found for: EGFRNAFR Chemistry Lab Units 08/02/24 0949 05/07/24 0000 CREATININE mg/dL 0.82 0.70 BUN mg/dL 11 13 BUN / CREAT RATIO 13 -- GLUCOSE mg/dL 273* 96 POTASSIUM mmol/L 3.2* 3.7 SODIUM mmol/L 135 146 CO2 mmol/L 23 25 CHLORIDE mmol/L 94* 102 ALBUMIN g/dL 4.2 4.4 Bone Mineral Lab Units 08/02/24 0949 05/07/24 0000 CALCIUM mg/dL 8.9 9.0 PHOSPHORUS mg/dL 2.7* -- No lab exists for component: SPECGRAV , GLUCOSEUR , BILIRUBINUR , RBCUR , UPROTEIN , LEUKOCYTESUR , NITRITE Labs Lab Units 08/02/24 0948 OSMOLALITY UR mOsmol/kg 676 PLAN: Assessment & Plan 1. Hypernatremia 2. Hypokalemia 3. Hypertension 4. Diabetes mellitus, not otherwise specified (HCC) Sodium level has improved with better oral fluid intake. This is most likely due to free water deficit. Urine osmolality was elevated practically ruling out diabetes insipidus. Potassium is low and will start him on potassium sparing agent (will hold losartan). I will heck magnesium level. REC Hold losartan Magnesium level Spironolactone 25 mg daily Encourage oral fluid intake > 45 ounces Follow kidney function electrolytes Orders Placed This Encounter Renal funtion panel Magnesium spironolactone (Aldactone) 25 MG tablet Return in 5 months (on 01/06/2025). Prem Hernandez MD documented in this encounter Plan of Treatment Upcoming Encounters Date Type Department Care Team (Late st Contact Info) Description 01/07/2025 3:15 PM EDT Office Visit [facility] [address] [place] [address] Prem Hernandez MD [address] [address] Scheduled Orders Name Type Priority Associated Diagnoses Orde r Schedule Renal funtion panel Lab Routine Hypernatremia Expected: 08/06/2024, Expires: 09/06/2025 Magnesium Lab Routine Hypokalemia Expected: 08/06/2024, Expires: 09/06/2025 documented as of this encounter Visit Diagnoses Diagnosis Hypernatremia- Primary Hypokalemia Hypertension Diabetes mellitus, not otherwise specified (HCC) documented in this encounter Care Teams Grain Sacker Relationship Specialty Start Date End Date Sonja Cobb MD [address] [place] [address] PCP - General Internal Medicine 05/12/24 documented as of this encounter
--- OUTSIDE RECORDS SUMMARY | 2024-08-07 18:37 | XMS_ITS | Encounter Summary ---
Author Organization [facility] Address [address] [place] [address] Care Team Providers Care Fruit Harvester Machine Operator Name Role Phone Rere Rosas MD Primary Care Provider Unava ilable Encounter Details Date Type Department Care Team Description 02/24/2018 [facility] Medical Records [address] [place] [id number] Social History Tobacco Use Types Packs/Day Years [...] on filedocumented in this encounter Care Teams Fruit Harvester Machine Operator Relationship Specialty Start Date End Date Rere Rosas MD PCP - General Family Practice 06/04/14 documented as of this encounter
--- OUTSIDE RECORDS SUMMARY | 2024-08-07 18:37 | XMS_ITS | Clinical Summary ---
Author Organization [facility] Address [address] [place] [address] Care Team Providers Care Monogram Operator Name Role Phone Sonja Cobb MD Primary Care Provider [phone] Allergies Active Allergy Reactions Criticality Noted Date Comments Lisinopril 03/14/2023 Penicillins Swelling 03/14/2022 Sulfa Antibiotics 09/12/2022 Medications Medication Sig Dispensed Refills Start Date End Date Status rosuvastatin (CRESTOR) tablet 40 mg Take 1 tablet (40 mg total) by mouth daily. 0 Active lisinopril (PRINIVIL,ZESTRIL) tablet 20 mg Take 1 tablet (20 mg total) by mouth daily. 0 Active metoprolol tartrate (LOPRESSOR) 100 MG tablet Take 2 tablets (200 mg total) by mouth daily. 0 Active amLODIPine (NORVASC) tablet 10 mg Take 1 tablet (10 mg total) by mouth daily. 0 Active metFORMIN (GLUCOPHAGE) tablet 500 mg Take 2 tablets (1,000 mg total) by mouth 2 (two) times a day with meals. 0 Active Insulin Lispro (HUMALOG SC) Inject under the skin. 0 Active fluticasone (FLONASE) 50 MCG/ACT nasal spray spray/apply 1 spray in each nostril daily. 0 Active Fluticasone Propionate, Inhal, (FLOVENT IN) Inhale into the lungs. 0 Active Multiple Vitamin (MULTIVITAMIN PO) Take by mouth. 0 Act jonnie aspirin EC 81 MG tablet Take 1 tablet (81 mg total) by mouth daily. 0 Active vitamin D3 (VITAMIN D3) 25 MCG (1000 UT) tablet Take 1 tablet (1,000 Units total) by mouth daily. 0 Active [place]-3 Fatty Acids (Fish Oil) 1000 MG CPDR Take by mouth. 0 Active Probiotic Product ([employer]) CAPS Take by mouth. 0 Active Immune Globulin, Human, (GAMMAGARD S/D IV) Inject into the vein. 0 Active Cyanocobalamin (B-12) [address] under the tongue. 0 Active tirzepatide (Mounjaro) 2.5 MG/0.5ML Inject 0.5 mL (2.5 mg total) under the skin every 7 days. 0 Active tafasitamab-cxix (Monjuvi) injection Inject into the vein. 0 Active Vitamins-Lipotropics (Lipo Flavonoid Plus) TABS Take by mouth. 0 Active losartan (COZAAR) tablet 25 mg Take 1 tablet (25 mg total) by mouth daily. 0 Active ezetimibe (ZETIA) tablet 10 mg Take 1 tablet (10 mg total) by mouth daily. 0 Active empagliflozin (JARDIANCE) tablet 10 mg Take by mouth daily. 0 Active Glucagon 3 MG/DOSE POWD spray or apply inside Nose. 0 Active betamethasone dipropionate (DIPROSONE) 0.05 % cream Apply topically 2 (two) times a day. 0 Active polyethylene glycol (MIRALAX) 17 g packet Take 17 g by mouth daily. 0 Active Active Problems Problem Noted Date Diagnosed Date Rectal cancer 11/19/2019 Social History Tobacco Use Types Packs/Day Years Used Date Smoking Tobacco: Never Assessed Sex and Gender Information Value Date Recorded Sex Assigned at Not on file Gender Identity Not on file Sexual Orientation Not on file Job Start Date Occupation Industry Not on file Not on file Not on file Last Filed Vital Signs Vital Sign Reading Time Taken Comments Blood Pressure 160/70 03/10/2024 10:12 AM EDT Pulse 63 03/10/2024 10:12 AM EDT Temperature 36.4 ??C (97.6 ??F) 03/10/2024 10:12 AM E DT Respiratory Rate - - Oxygen Saturation 97% 03/10/2024 10:12 AM EDT Inhaled Oxygen Concentration - - Weight 129.7 kg (286 lb) 03/10/2024 10:12 AM EDT Height 198.1 cm (6' 6 ) 03/10/2024 10:12 AM EDT Body Mass Index 33.05 03/10/2024 10:12 AM EDT Plan of Treatment Health Maintenance Due Date Last Done Comments Hepatitis B Vaccines (1 of 3 - 3-dose series) 1965 Hepatitis C Screening 1965 Depression Screening 1977 BMI Counseling 1983 Preventative Health Evaluation 1983 DTap / Tdap / Td (1 - Tdap) 02/27/1984 Pneumococcal Vaccine (2 of 2 - PCV) 06/28/2005 06/28/2004 Colon Cancer Screening (Colonoscopy) 2010 COVID-19 Vaccine (2 - Moderna risk series) 04/05/2023 03/08/2023 Influenza Vaccine (#1) 2024 , 05/18/2022, 05/04/2021, Additional history exists Shingrix-Zoster Vaccine Completed 05/09/2023, 03/08 RSV Ped < 20 months Aged Out No longe r eligible based on patient's age to complete this topic Care Teams Monogram Operator Relationship Specialty Start Date End Date Sonja Cobb MD [address] [facility] [place], [place] [id number] PCP - General Internal Medicine 03/10/24
--- OUTSIDE RECORDS SUMMARY | 2024-08-07 18:37 | XMS_ITS | Encounter Summary ---
Author Organization Formerly [facility] Address [address] [place] [address] Care Team Providers Care Chief Deputy Coroner Name Role Phone Rere Rosas MD Primary Care Provider Unava ilable Encounter Details Date Type Department Care Team Description 02/03/2020 Pillow Cleaner Report Medical Records [address] [place] [address] Laquita Hernandez MD [address] [facility] [address] [place] [address] Social History Tobacco Use Types Packs/Day Years [...] on filedocumented in this encounter Care Teams Chief Deputy Coroner Relationship Specialty Start Date End Date Rere Rosas MD PCP - General Family Practice 06/04/14 documented as of this encounter
--- OUTSIDE RECORDS SUMMARY | 2024-08-07 18:37 | XMS_ITS | Encounter Summary ---
Author Organization [facility] Address [address] [address] Phone Care Team Providers Care Vp Ad Products And Planning Name Role Phone Sonja Cobb MD Primary Care Provider [phone] Reason for Visit * Reason Comments Hypertension Encounter Details Date Type Department Care Team (Latest Contact Info) Description 07/16/2024 1:15 PM EST Office Visit [facility] [address] [address] Prem Hernandez MD [address] [address] Hypernatremia (Primary Dx); Hypertension; Diabetes mellitus, not otherwise specified (HCC) [...] Sign Reading Time Taken Comments Blood Pressure 120/66 07/16/2024 1:30 PM EST Pulse 64 07/16/2024 1:30 PM EST Temperature - - Respiratory Rate - - Oxygen Saturation - - Inhaled Oxygen Concentration - - Weight 135 kg (298 lb) 07/16/2024 1:30 PM EST Height - - Body Mass Index - - documented in this encounter Progress Notes * Prem Hernandez MD - 07/16/2024 1:15 PM EST [facility] Patient Name: Clayton Clarke, Male Date of : 1965, 59 y.o. Date: 07/16/2024 Referring MD: No primary care provider on file. PCP: Sonja Cobb MD Thank you for allowing me to participate in the care of your patient Reason For Visit: I had the pleasure of seeing your patient for elevated serum sodium.?? There is no prior history of high sodium.?? He denies any history of high calcium. He has a history of low potassium in the past. There is no history of lithium exposure. He has a history of hyper joyce globulinemia. There is no report of nausea, vomiting but he reports recently diarrhea in the setting of colon cancer. He drinks 2 quarts on a daily basis. The following portions of the patient's chart [...] 108 (90 Base) MCG/ACT aerosol powder Inhale Bacillus Coagulans-Inulin (Probiotic Formula) 1-250 BILLION-MG capsule Take 1 capsule by mouth Calcium-Vitamin D-Vitamin K 500-200-40 MG-UNT-MCG chewable tablet Chew 25 mcg Continuous Glucose Sensor (Dexcom G6 Sensor) misc Continuous Glucose Transmitter (Dexcom G6 Transmitter) misc See administration instructions EPINEPHrine (EPIPEN) 0.3 MG/0.3ML injection syringe ferrous sulfate 325 (65 Fe) MG tablet Take 1 tablet by mouth Insulin Lispro 100 UNIT/ML solution SUBCUTANEOUS, SOLUTION, 0 Refill(s),, 0 Refills, 01/26/19 13:11:00 EDT meclizine (ANTIVERT) 25 MG tablet Take 25 mg by mouth metoprolol succinate XL (TOPROL-XL) 200 MG 24 hr tablet Take 1 tablet by mouth amLODIPine (NORVASC) 10 MG tablet Take 10 mg by mouth aspirin (ST CHANDANA) 81 MG EC tablet Take 81 mg by mouth Cyanocobalamin [address] under the tongue ezetimibe (ZETIA) 10 MG tablet Take 10 mg by mouth 1 (one) time each day fluticasone (FLONASE) 50 MCG/ACT nasal spray shake liquid and use 2 sprays in each nostril daily immune globulin, human, infusion Inject as directed. 60gm every 3 weeks Jardiance 25 MG tablet Take by mouth 1 (one) time each day losartan (COZAAR) 25 MG tablet Take 25 mg by mouth 1 (one) time each day metFORMIN (GLUCOPHAGE) 500 MG tablet Take 1,000 mg by mouth Multiple Vitamin (Multi-Vitamin) tablet Take by mouth Roscoe-3 1000 MG capsule Take by mouth rosuvastatin (CRESTOR) 40 MG tablet Take 40 mg by mouth 1 (one) time each day No current facility-administered medications for this visit. Allergies Allergen Reactions Acetazolamide Other Reaction(s): unsure Insulins Hives Other Reaction(s): rash,hives,angioedema, synthetic insulin:angioedema,rash,hives Synthetic insulin. Able to tolerate human insulin Lisinopril Swelling Penicillins Hives, Other (see comments), Rash and Swelling Other Reaction(s): Other (See Comments) Tolerates ceftriaxone Sulfa Antibiotics Hives and Rash Objective: Vitals: 07/16/24 1330 BP: 120/66 Pulse: 64 Weight: 298 lb (135 kg) Physical Exam Constitutional: Oriented to person, [...] results found for: EGFRNAFR Chemistry Lab Units 05/07/24 0000 CREATININE mg/dL 0.70 BUN mg/dL 13 GLUCOSE mg/dL 96 POTASSIUM mEq/L 3.7 SODIUM mEq/L 146 CO2 mmol/L 25 CHLORIDE 102 ALBUMIN g/dL 4.4 Bone Mineral Lab Units 05/07/24 0000 CALCIUM mg/dL 9.0 No lab exists for component: SPECGRAV , GLUCOSEUR , BILIRUBINUR , RBCUR , UPROTEIN , LEUKOCYTESUR , NITRITE PLAN: Assessment & Plan 1. Hypernatremia 2. Hypertension 3. Diabetes mellitus, not otherwise specified (HCC) This is most likely due to free water deficit. There is no reason to suspect nephrogenic or central diabetes insipidus at this junction. Hypokalemia on a chronic basis can cause transient DI but current potassium level was normal. I will nevertheless check a urine osmolality. REC Uosm and Sosm Encourage oral fluid intake > 45 ounces Follow kidney function electrolytes Orders Placed This Encounter Renal funtion panel Urine Osmolality Osmolality Return in 2 weeks (on 07/30/2024). Prem Hernandez MD documented in this encounter Plan of Treatment Upcoming Encounters Date Type Department Care Team (Late st Contact Info) Description 01/07/2025 3:15 PM EDT Office Visit [facility] [address] [place] [id number] Prem Hernandez MD [address] [address] documented as of this encounter Procedures Procedure Name Priority Date/Time Associated Diagnosis Comments RENAL FUNCTION PANEL Routine 08/02/2024 9:49 AM EST Hypernatremia OSMOLALITY, URINE Routine 08/02/2024 9:4 8 AM EST Hypernatremia OSMOLALITY (SERUM) Routine 08/02/2024 9: 48 AM EST Hypernatremia RENAL FUNCTION PANEL (EXTERNAL LAB ENTRY) Routine 05/07/2024 documented in this encounter Results * (ABNORMAL) Renal funtion panel (08/02/2024 9:49 AM EST) Glucose 273(H) 70 - 99 mg/dL [facility] BUN 11 6 - 24 mg/dL [facility] Creatinine 0.82 0.76 - 1.27 mg/dL [facility] eGFR CKD-EPI CR 2020 101 >59 mL/min/1.7 3 [facility] BUN/Creatinine Ratio 13 9 - 20 [facility] Sodium 135 134 - 144 mmol/L [facility] Potassium 3.2(L) 3.5 - 5.2 mmol/L [facility] Chloride 94(L) 96 - 106 mmol/L [facility] Bicarbonate (CO2) 23 20 - 29 mmol/L [facility] Calcium 8.9 8.7 - 10.2 mg/dL [facility] Phosphorus 2.7(L) 2.8 - 4.1 mg/dL [facility] Albumin 4.2 3.8 - 4.9 g/dL [facility] Blood (Blood, Venous) 08/02/2024 9:49 AM EST 08/02/2024 us Prem Hernandez MD LAB BLOOD ORDERABLES Final Resul t [facility] [address] [place] [address] * Osmolality (08/02/2024 9:48 AM EST) Osmolality Calc 290 275 - 295 mOsmol/kg [facility] Blood (Blood, Venous) 08/02/2024 9:48 AM EST 08/02/2024 Prem Hernandez MD LAB BLOOD ORDERABLES Final Resul t Performing Organization Address City/[facility]/ZIP Co de Phone Number [facility] [address] [place] [address] * Urine Osmolality (08/02/2024 9:48 AM EST) Osmolality, Ur 676 mOsmol/kg [facility] Comment: ?24 hr : ?? 300 - ??900 ?Random: ?50 - 1400 ?After 12hr fluid ?restriction: ?>850 Urine (Urine, Clean Catch) 08/02/2024 9:48 AM EST 08/02/2024 Prem Hernandez MD LAB URINE ORDERABLES Final Resul t Performing Organization Address City/[facility]/ZIP Co de Phone Number [facility] [address] [place] [address] * Renal Function Panel (External Lab) (05/07/2024) Glucose 96 mg/dL BUN 13 mg/dL Sodium 146 mEq/L Potassium 3.7 mEq/L Chloride 102 Carbon Dioxide 25 mmol/L Calcium 9.0 mg/dL Albumin (Blood) 4.4 g/dL Creatinine 0.70 mg/dL Anion Gap 19.0 Blood 05/07/2024 Historical Provider LAB BLOOD ORDERABLES Tosha l Result documented in this encounter Visit Diagnoses Diagnosis Hypernatremia- Primary Hypertension Diabetes mellitus, not otherwise specified (HCC) documented in this encounter Care Teams Vp Ad Products And Planning Relationship Specialty Start Date End Date Sonja Cobb MD [address] [place] [address] PCP - General Internal Medicine 05/12/24 documented as of this encounter
--- OUTSIDE RECORDS SUMMARY | 2024-08-07 18:37 | XMS_ITS | Encounter Summary ---
Author Organization [facility] Address [address] [place] [address] Care Team Providers Care Farm Tractor Operator Name Role Phone Rere Rosas MD Primary Care Provider Unava ilable Encounter Details Date Type Department Care Team Description 11/16/2017 Transfer Records Medical Records [address] [place] [id number] Abstract, Provider Social History Tobacco Use Types [...] on filedocumented in this encounter Care Teams Farm Tractor Operator Relationship Specialty Start Date End Date Rere Rosas MD PCP - General Family Practice 06/04/14 documented as of this encounter
--- OUTSIDE RECORDS SUMMARY | 2024-08-07 18:37 | XMS_ITS | Encounter Summary ---
Author Organization [facility] Address [address] [place] [address] Care Team Providers Care Straightedge Worker Name Role Phone Rere Rosas MD Primary Care Provider Unava ilable Encounter Details Date Type Department Care Team Description 08/01/2018 Orders Only Oncology/Hematology - [address] [address] Dami Rivas MD Rectal cancer (HCC) Social History Tobacco Use Types Packs/Day Years Used Date Smoking Tobacco: Never Smokeless Tobacco: Never Alcohol Use Standard Drinks/Week Comments No 0 (1 standard drink = 0.6 oz pur e alcohol) Sex Assigned at Date Recorded Not on file documented as of this encounter Plan of Treatment Not on file documented as of this encounter Procedures Procedure Name Priority Date/Time Associated Diagnosis Comments CT ABD & PELVIS W/CONTRAST Routine 05/13/2018 Rectal cancer (HCC) documented in this encounter Results * CT ABD & PELVIS W/CONTRAST (05/13/2018) Dami Rivas MD CT SCANS documented in this encounter Visit Diagnoses Diagnosis Rectal cancer (HCC) Malignant neoplasm of rectum documented in this encounter Care Teams Straightedge Worker Relationship Specialty Start Date End Date Rere Rosas MD PCP - General Family Practice 06/04/14 documented as of this encounter
--- OUTSIDE RECORDS SUMMARY | 2024-08-07 18:37 | XMS_ITS | Encounter Summary ---
Author Organization [facility] Address [address] [place] [address] Care Team Providers Care Round Corner Cutter Operator Name Role Phone Sonja Cobb MD Primary Care Provider [phone] Encounter Details Date Type Department Care Team (Late st Contact Info) Description 03/10/2024 10:00 AM EDT Hospital Encounter TH HISTORIC ENCOUNTERS EASTERN CONVERSION ONLY Dami Rivas MD [address] [place] [phone] Social History Tobacco Use Types Packs/Day Years Used Date Smoking Tobacco: Never Assessed Alcohol Use Standard Drinks/Week Comments No 0 (1 standard drink = 0.6 oz pur e alcohol) Sex and Gender Information Value Date Recorded Sex Assigned at Not on file Legal Sex Male 9:59 AM EST Gender Identity Not on file Sexual [...] infection. ?? He is followed by a ambulatory services representative. The fungal infection resolved on antifungal cream. [...] in 01/2020. He was evaluated by an guidance and control system engineer. He started [id number] medication with excellent control of the hives. ?? He developed a left thigh cellulitis in 05/2020, requiring hospitalization at [facility] with a debridement and antibiotic therapy. ?? He denies a change in bowel pattern apart from frequent??formed??stools. He reports scant blood on the toilet paper, which he attributes to irritated external hemorrhoids, since 02/2020. He denies melena. ?? He underwent a colonoscopy on 10/12/[address] Schmelkin and a sigmoid colonic polyp was seen [...] oral iron. I referred him back to [facility] for an endoscopic evaluation and observation [...] infection. ?? He is followed by a ambulatory services representative. The fungal infection resolved on antifungal cream. [...] in 01/2020. He was evaluated by an guidance and control system engineer. He started [id number]-[id number] medication with excellent control of the hives. ?? He developed a left thigh cellulitis in 05/2020, requiring hospitalization at [facility] with a debridement and antibiotic therapy. ?? [...] Description 03/11/2025 10:00 AM EDT Office Visit [facility] Hematology Oncology [address] [place] [phone] Dami Rivas MD [address] [place] [phone] documented as of this encounter Visit Diagnoses Not on filedocumented in this encounter Care Teams Round Corner Cutter Operator Relationship Specialty Start Date End Date Sonja Cobb MD [address] [place] [address] PCP - General 03/10/24 03/16/24 documented as of this encounter
--- OUTSIDE RECORDS SUMMARY | 2024-08-07 18:37 | XMS_ITS | Clinical Summary ---
Author Organization [facility] Address [address] [place] [address] Care Team Providers Care Machine Adjuster Leader Case Trim Name Role Phone Sonja Cobb MD Primary Care Provider [phone] Surgical History Surgery Date Site/Laterality Comments COLONOSCOPY 07/07/2014 PROCEDURE: HISTORICAL COLONOSCOPY; COMMENT: rectal mass- adenocarcinoma COLONOSCOPY 10/13/2015 PROCEDURE: HISTORICAL COLONOSCOPY; COMMENT: Polyps, Anastomotic Stricture- dilated, 5 yr f/u COLONOSCOPY 09/10/2017 PROCEDURE: HISTORICAL COLONOSCOPY; COMMENT: Anastomotic strcture- dilated, Hemorrhoids, Repeat dilation 1 yr APPENDECTOMY PROCEDURE: HISTORICAL APPENDECTOMY KNEE SURGERY Right PROCEDURE: HISTORICAL KNEE SURGERY CARDIAC CATHETERIZATION PROCEDURE: HISTORICAL CARDIAC CATH; COMMENT: Coronary angiogram OTHER SURGICAL HISTORY 08/13/2014 PROCEDURE: [place] LAPAROSCOPY COLECTOMY PARTIAL W/ANASTOMOSIS; COMMENT: Rectosigmoidectomy, Dr Diaz OTHER SURGICAL HISTORY 2015 PROCEDURE: [place] INTESTINAL PLICATION SEPARATE PROCEDURE; COMMENT: Dr Fang Medical History Medical History Date Comments Fatty liver 11/21/2017 DX:Fatty liver Hemorrhoids 11/21/2017 DX:Hemorrhoids SUHAIL (obstructive sleep apnea) 11/21/2017 DX :SUHAIL (obstructive sleep apnea) CAD (coronary artery disease) 11/21/2017 DX :CAD (coronary artery disease); COMMENT: 2006, [place], Hypertension 11/21/2017 DX:Hypertension Hyperlipidemia 11/21/2017 DX:Hyperlipidemi a 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/2017 DX:Anastomotic stricture of colorectal region; COMMENT: Yearly dilation, last performed 09/2017 Agammaglobulinemia (CMS/HCC) 11/21/2017 DX: Agammaglobulinemia (HCC); COMMENT: Gammaglobulin infusions q 3 weeks ( since age 15) Pulmonary nodules 11/21/2017 DX:Pulmonary n odules; COMMENT: Ct 05/2017 Stable: Left apical 4 mm, Right lower lobe 6mm nodule Colon polyps 11/21/2017 DX:Colon polyps; COMMENT: 2016 hyperplastic excised 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 On Insulin pump Insulin pump in place 04/05/2018 DX:Insulin pump in place History of MRSA infection 04/05/2018 DX:His tory of MRSA infection; COMMENT: 2016 Cutaneous abscess Cellulitis of left lower extremity 04/05/2018 DX:Cellulitis of left lower extremity; COMMENT: 02/16/2018 IP [facility] with Cellulitis, UTI, & Viral Bronchitis,02/21/18 Trans [facility] for further eval & ID consults Levaquin UTI & Viral Bronchitis resolved, swelling/pain improved, but cellulitis persisted 02/26 Switched to oral Levaquin 750 mg daily & oral Linezolid 600 mg bid upon discharge & remained on until 03/13 03/13 - 03/15/ History of rectal cancer 11/14/2017 DX:Hist ory of rectal cancer; COMMENT: 08/2014, Stage I, T2 N0, low anterior resection Family History Medical History Relation Name Comments No Known Problems Brother No Known Problems Father No Known Problems Maternal Grandfather No Known Problems Maternal Grandmother No Known Problems Mother No Known Problems Paternal Grandfather Colon cancer Paternal Grandmother mid 80' s Relation Name Status Comments Brother Father Maternal Grandfather Maternal Grandmother Mother Paternal Grandfather Paternal Grandmother Social History Tobacco Use Types Packs/Day Years Used Date Smoking Tobacco: Never Assessed Alcohol Use Standard Drinks/Week Comments No 0 (1 standard drink = 0.6 oz pur e alcohol) Sex and Gender Information Value Date Recorded Sex Assigned at Not on file Legal Sex Male 9:59 AM EST Gender Identity Not on file Sexual Orientation Not on file Obstetrics History Last Filed Vital Signs Vital Sign Reading [...] 03/10/2024 10:12 AM EDT Plan of Treatment Upcoming Encounters Date Type Department Care Team (Late st Contact Info) Description 03/11/2025 10:00 AM EDT Office Visit [facility] Hematology Oncology [address] [place] [address] Dami Rivas MD [address] [place] [address] Health Maintenance Due Date Last Done Comments Diabetes: Annual GFR (Glomer ular Filtration Rate) 1965 COVID-19 Vaccine (#1) 1970 Diabetes: Annual Foot Exam 1975 Diabetes: Annual Retina Eye Exam 1975 DTaP,Tdap,and Td Vaccines (1 - Tdap) 02/27/1984 Hepatitis A Vaccines (1 of 2 - Risk 2-dose series) 02/27/1984 Hepatitis B Vaccines (1 of 3 - 19+ 3-dose series) 02/27/1984 Pneumococcal Vaccine: 50+ Ye ars (1 of 2 - PCV) 02/27/1984 Pneumococcal Vaccine: Pediat rics (0 to 5 Years) and At-Risk Patients (6 to 64 Years) (1 of 2 - PCV) 02/27/1984 Zoster Vaccines (1 of 2) 02/27/1984 Cholesterol Screening (Lipid Panel) 05/13/2022 Colorectal Cancer Screening: Colonoscopy 05/13/2022 Depression Screening 05/13/2022 HIV Screening 05/13/2022 Hepatitis C Screening 05/13/2022 Social Influencers of Health Screening 05/13/2022 Diabetes: Annual Urine Albumin-Creatinine Ratio (uACR) 05/18/2022 Diabetes: Blood Sugar Contro l Test (HGBA1C) 05/18/2022 Hypertension/CHF/CAD Annual BMP Blood Test 05/18/2022 Influenza Vaccine (#1) 2024 03/30/2018 RSV Immunization Patients 60 + Years Old (1 - 1-dose 75+ series) 02/27/2040 HIB Vaccines Aged Out No longer eligi ble based on patient's age to complete this topic HPV Vaccines Aged Out No longer eligi ble based on patient's age to complete this topic IPV Vaccines Aged Out No longer eligi ble based on patient's age to complete this topic MMR Vaccines Aged Out No longer eligi ble based on patient's age to complete this topic Meningococcal ACWY Vaccine Aged Out N o longer eligible based on patient's age to complete this topic Meningococcal B Vacine Aged Out No lo nger eligible based on patient's age to complete this topic RSV Immunization Patients Un hannah 20 months Aged Out No longer eligible b ased on patient's age to complete this topic Varicella Vaccines Aged Out No longer eligible based on patient's age to complete this [place] [id number] [facility] [employer] Care Teams Machine Adjuster Leader Case Trim Relationship Specialty Start Date End Date Sonja Cobb MD [address] [place] [address] PCP - General 03/17/24
--- OUTSIDE RECORDS SUMMARY | 2024-08-07 18:37 | XMS_ITS | Clinical Summary ---
Author Organization [facility] Address [address] [phone] Phone Care Team Providers Care Appliance Sales Associate Name Role Phone Sonja Cobb MD Primary Care Provider [phone] Allergies Active Allergy Reactions Criticality Noted Date Comments Acetazolamide 10/23/2022 Other Reaction(s): unsure Insulins Hives 11/14/2017 Other Reaction(s): rash,hives,angioedema, synthetic insulin:angioedema,rash ,hives Synthetic insulin. ??Able to tolerate human insulin Lisinopril Swelling 03/14/2023 Penicillins Hives,Other (see comments),Rash,Swelli ng Low 11/14/2017 Other Reaction(s): Other (See Comments) Tolerates ceftriaxone Sulfa Antibiotics Hives,Rash Low 11/14/2017 Medications aspirin (ST CHANDANA) 81 MG EC tablet Take 81 mg by mouth Active amLODIPine (NORVASC) 10 MG tablet Take 10 mg by mouth Active Albuterol Sulfate, sensor, (ProAir Digihaler) 108 (90 Base) MCG/ACT aerosol powder Inhale 04/13/20 21 Active Bacillus Coagulans-Inuli n (Probiotic Formula) 1-250 BILLION-MG capsule Take 1 capsule by mouth 08/31/19 23 Active Calcium-Vitamin D-Vitamin K 500-200-40 MG-UNT-MCG chewable tablet Chew 25 mcg 01/06/20 23 Active Continuous Glucose Sensor (Dexcom G6 Sensor) misc 05/20/20 24 Active Continuous Glucose Transmitter (Dexcom G6 Transmitter) [facility] See administration instructions 05/29/20 24 Active Cyanocobalamin [address] under the tongue Active Jardiance 25 MG tablet Take by mouth 1 (one) time each day Active EPINEPHrine (EPIPEN) 0.3 MG/0.3ML injection syringe 06/06/19 25 Active ezetimibe (ZETIA) 10 MG tablet Take 10 mg by mouth 1 (one) time each day Active ferrous sulfate 325 (65 Fe) MG tablet Take 1 tablet by mouth 05/31/20 22 Active fluticasone (FLONASE) 50 MCG/ACT nasal spray shake liquid and use 2 sprays in each nostril daily Active immune globulin, human, infusion Inject as directed. 60gm every 3 weeks Active Insulin Lispro 100 UNIT/ML solution SUBCUTANEOUS, SOLUTION, 0 Refill(s),, 0 Refills, 01/26/19 13:11:00 EDT 01/27/20 19 Active losartan (COZAAR) 25 MG tablet Take 25 mg by mouth 1 (one) time each day Active meclizine (ANTIVERT) 25 MG tablet Take 25 mg by mouth 04/21/20 22 Active metFORMIN (GLUCOPHAGE) 500 MG tablet Take 1,000 mg by mouth Active metoprolol succinate XL (TOPROL-XL) 200 MG 24 hr tablet Take 1 tablet by mouth 08/13/19 21 Active Multiple Vitamin (Multi-Vitamin) tablet Take by mouth Active Anaconda-3 1000 MG capsule Take by mouth Active rosuvastatin (CRESTOR) 40 MG tablet Take 40 mg by mouth 1 (one) time each day Active spironolactone (Aldactone) 25 MG tablet Take 1 tablet (25 mg total) by mouth 1 (one) time each day 30 tablet 11 08/07/19 25 026 Active Active Problems Problem Noted Date Diagnosed Date Vertigo 07/15/2024 Syncope 07/15/2024 Stricture of colon 07/15/2024 Stasis dermatitis 07/15/2024 Pure hypercholesterolemia 07/15/2024 Obesity 07/15/2024 Obese class I 07/15/2024 Low back pain 07/15/2024 Type 1 diabetes mellitus 07/15/2024 Type 1 diabetes mellitus 07/15/2024 Coronary arteriosclerosis 07/15/2024 Overview (07/15/2024): cath 2006, small vessel disease Cerebrovascular accident 07/15/2024 Benign essential hypertension 07/15/2024 Atopic dermatitis 07/15/2024 Allergic rhinitis 07/15/2024 Congenital agammaglobulinemia 10/23/2022 Hypogammaglobulinemia 10/23/2022 Rectal cancer 11/19/2019 Personal history of Methicil kym resistant Staphylococcus aureus infection 04/05/2018 Overview (07/15/2024): 2017 Cutaneous abscess Latent autoimmune diabetes mellitus in adult 07/2017 Overview (07/15/2024): 03/2018 Diagnosis changed to type 1 d/t presence of antibodies. On Insulin pump Insulin pump present 04/05/2018 Cellulitis of left lower limb 04/05/2018 Overview (07/15/2024): 02/16/2018 IP [facility] with Cellulitis, UTI, & Viral Bronchitis,02/21/18 Trans [facility] for further eval & ID consults Levaquin UTI & Viral Bronchitis resolved, swelling/pain improved, but cellulitis persisted 02/26 Switched to oral Levaquin 750 mg daily & oral Linezolid 600 mg bid upon discharge & remained on until 03/13 03/13 - 03/15/18 Readmitted 2 wks after discharge w/ Recurrent non-purulent Cellulitis also had bilateral interdigital hyperkeratotic tinea pedis Polyp of colon 11/21/2017 Overview (07/15/2024): 2016 hyperplastic excised Obstructive sleep apnea syndrome 11/21/2017 Multiple nodules of lung 11/21/2017 Overview (07/15/2024): Ct 05/2017 Stable: Left apical 4 mm, Right lower lobe 6mm nodule Hypertension 11/21/2017 Hyperlipidemia 11/21/2017 Hemorrhoid 11/21/2017 Fatty liver 11/21/2017 Coronary arteriosclerosis 11/21/2017 Overview (07/15/2024): 2006, Old MS, Agammaglobulinemia 11/21/2017 Overview (07/15/2024): Gammaglobulin infusions q 3 weeks ( since age 15) History of malignant neoplasm of rectum 11/15/19 18 Overview (07/15/2024): 08/2014, Stage I, T2 N0, low anterior resection 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 Encounters Date Type Department Care Team Description 08/06/2024 1:30 PM EST Office Visit [facility] [address] [place] [address] Prem Hernandez MD Hypernatremia (Primary Dx); Hypokalemia; Hypertension; Diabetes mellitus, not otherwise specified (HCC) 07/16/2024 1:15 PM EST Office Visit [facility] [address] [phone] Prem Hernandez MD Hypernatremia (Primary Dx); Hypertension; Diabetes mellitus, not otherwise specified (HCC) from Last 3 Months Social History Tobacco Use Types Packs/Day Years Used Date Smoking Tobacco: Never Assessed Sex and Gender Information Value Date Recorded Sex Assigned at Not on file Legal Sex Male 1:45 PM EST Gender Identity Not on file Sexual Orientation Not on file Last Filed Vital Signs Vital Sign Reading Time Taken Comments Blood Pressure 123/67 08/06/2024 1:17 PM EST Pulse 65 08/06/2024 1:17 PM EST Temperature - - Respiratory Rate - - Oxygen Saturation - - Inhaled Oxygen Concentration - - Weight 134 kg (295 lb) 08/06/2024 1:17 PM EST Height - - Body Mass Index - - Plan of Treatment Upcoming Encounters Date Type Department Care Team (Late st Contact Info) Description 01/07/2025 3:15 PM EDT Office Visit [facility] [address] [place] [address] Prem Hernandez MD [address] [phone] Health Maintenance Due Date Last Done Comments Hepatitis B Vaccine (1 of 3 - 19+ 3-dose series) 02/27/1984 Pneumococcal Vaccine: Pediat rics (0 to 5 Years) and At-Risk Patients (6 to 64 Years) (2 of 2 - PCV) 06/28/2005 06/28/2004 Colorectal Cancer Screening: Annual FOBT 2014 Colorectal Cancer Screening: Colonoscopy 2014 Colorectal Cancer Screening: Sigmoidoscopy 2014 Influenza Vaccine (#1) 2024 07/25/2019, 2017 Diabetes: Hemoglobin A1C 05/12/2024 Diabetes: Ophthalmology Exam 05/12/2024 Diabetes: Pedal Pulse Checked 05/12/2024 Diabetes: Sensory Foot Exam 05/12/2024 Diabetes: Visual Foot Exam 05/12/2024 Procedures Procedure Name Priority Date/Time Associated Diagnosis Comments RENAL FUNCTION PANEL Routine 08/02/2024 9:49 AM EST Hypernatremia OSMOLALITY (SERUM) Routine 08/02/2024 9: 48 AM EST Hypernatremia OSMOLALITY, URINE Routine 08/02/2024 9:4 8 AM EST Hypernatremia from Last 3 Months Results * (ABNORMAL) Renal funtion panel (08/02/2024 9:49 AM EST) Glucose 273(H) 70 - 99 mg/dL [facility] BUN 11 6 - 24 mg/dL [facility] Creatinine 0.82 0.76 - 1.27 mg/dL [facility] eGFR CKD-EPI CR 2020 101 >59 mL/min/1.7 3 [facility] BUN/Creatinine Ratio 13 9 - 20 [facility] Sodium 135 134 - 144 mmol/L [facility] Potassium 3.2(L) 3.5 - 5.2 mmol/L [facility] Chloride 94(L) 96 - 106 mmol/L [facility] Bicarbonate (CO2) 23 20 - 29 mmol/L [facility] Calcium 8.9 8.7 - 10.2 mg/dL [facility] Phosphorus 2.7(L) 2.8 - 4.1 mg/dL [facility] Albumin 4.2 3.8 - 4.9 g/dL [facility] Blood (Blood, Venous) 08/02/2024 9:49 AM EST 08/02/2024 us Prem Hernandez MD LAB BLOOD ORDERABLES [facility] [address] [place] [address] * Urine Osmolality (08/02/2024 9:48 AM EST) Osmolality, Ur 676 mOsmol/kg [facility] Comment: ?24 hr : ?? 300 - ??900 ?Random: ?50 - 1400 ?After 12hr fluid ?restriction: ?>850 Urine (Urine, Clean Catch) 08/02/2024 9:48 AM EST 08/02/2024 us Prem Hernandez MD LAB URINE ORDERABLES [facility] [place] [address] [place] [address] * Osmolality (08/02/2024 9:48 AM EST) Osmolality Calc 290 275 - 295 mOsmol/kg [facility] [place] Blood (Blood, Venous) 08/02/2024 9:48 AM EST 08/02/2024 us Prem Hernandez MD LAB BLOOD ORDERABLES Final Resul t [facility] [place] [address] [place] [address] from Last 3 Months Insurance [facility] Care Teams Appliance Sales Associate Relationship Specialty Start Date End Date Sonja Cobb MD [address] [place] [address] PCP - General Internal Medicine 05/12/24
== END 2024-08-07 15:56 | disposition home or self-care (01) ==
PROVIDERS: PCP Family Medicine; Visit Provider Nurse Practitioner Adult Health
DX: E10.65 Type 1 diabetes mellitus with hyperglycemia (principal)

== ENCOUNTER → 2024-08-07 15:05 | Outpatient (BNVA) | payer OTHER, SELFPAY | PROVIDERS: PCP Family Medicine; Visit Provider Nurse Practitioner Adult Health | DX: E13.65 Other specified diabetes mellitus with hyperglycemia (principal); Z96.41 Presence of insulin pump (external) (internal); Z79.84 Long term (current) use of oral hypoglycemic drugs; Z79.4 Long term (current) use of insulin; Z79.899 Other long term (current) drug therapy | CPT/HCPCS: 82947; 83036; 99212 ==

== ENCOUNTER 2024-11-06 15:25 | Outpatient (AMB) | payer OTHER, SELFPAY ==
--- NOTE | 2024-11-06 15:26 | A.OFFVIS_ITS ---
Vital Signs 11/06/24 15:27 Height 6 ft 6 in Weight 300 lb 14.896 oz BMI 34.8 BP 152/60 H Blood Pressure Location Rt brachial Position Sitting Pulse 67 Pulse Source Pulse Oximeter Pulse Oximetry (%) 95 Oxygen Delivery Method Room Air Intake Visit Reasons: [id number] Martha Intake Note: Patient present today to follow up on T1DM JODI. Last Diabetic Eye exam: 10/14/2024 [facility] Last Podiatry Visit: 10/07/2024 Dr. Dixon Random Glucose: 152 mg/dl HgA1C: 7.6% 11/06/2024 Medical Care Evaluation Specialist Required: No Accompanied by: Self / Same As Patient Allergies lisinopril Allergy (Severe, Verified 11/06/24 15:31) Swelling penicillin V Allergy (Unknown, Verified 11/06/24 15:31) hives Sulfa (Sulfonamide Antibiotics) Allergy (Unknown, Verified 11/06/24 15:31) hives synthetic insulin Allergy (Unknown, Uncoded 11/06/24 15:31) hives januvia Adverse Reaction (Mild, Uncoded 11/06/24 15:31) Gastrointestinal Upset ozempic Adverse Reaction (Mild, Uncoded 11/06/24 15:31) Abdominal Pain Medication List - Last Reconciled 11/06/24 by El Blackman MD acetone (urine) test (Ketone Urine Test strips) As directed amlodipine 10 mg PO QAM 90 days aspirin 162 mg PO DAILY blood sugar diagnostic As directed blood sugar diagnostic (Contour Test Strips) As directed prn sensor failure or to confirm glucose tid countour lite strips blood-glucose sensor (Dexcom G6 Sensor device) USE TO MONITOR BLOOD SUGAR, CHANGE SENSOR EVERY 10 DAYS DIRECTED blood-glucose transmitter (Dexcom G6 Transmitter device) DIRECTED cetirizine 10 mg PO DAILY PRN cyanocobalamin (vitamin B-12) 500 mcg PO DAILY empagliflozin (Jardiance) 25 mg PO DAILY ezetimibe 10 mg PO DAILY fluticasone propionate 110 mcg/actuation 2 puffs PO BID fluticasone propionate 50 mcg/actuation 2 sprays intranasal DAILY glucagon 3 mg/actuation (Baqsimi) 3 mg intranasal .prn PRN 30 days MDD 6 mg insulin regular hum U-500 conc (Humulin R U-500 (Concentrated) Insulin) 200 units (0.4 mL) subcut DAILY L. gasseri-B. bifidum-B longum 1.5 billion cell (Flattr) 1 cap PO DAILY meclizine 25 mg PO TID PRN metformin ER 1,000 mg (2 x 500 mg) PO BID metoprolol succinate ER 200 mg PO QAM multivitamin 1 tab PO DAILY multivitamin with iron 1 tab PO DAILY pen needle, diabetic As directed rosuvastatin 40 mg PO DAILY 90 days spironolactone 25 mg PO DAILY HPI Comments Details: Patient is a 59-year-old male with DM type 1/JODI diagnosed at age 35 who presents for management of diabetes. He is karmen positive with preserve beta cell function. . He was forgetting his bolus with many snacks and meals. Past medical history: Dm 1/Jodi, hypertension, hyperlipidemia, primary immune deficiency disorder, rectal carcinoma status post resection, coronary artery disease with myocardial infarction at age 41, gammaglobuin anemia Micro and macrovascular complications: Neuropathy, mild nonproliferative diabetic retinopathy, bilateral, coronary artery disease. Diabetes medications: Metformin 1000 mg twice a day, Jardiance 25 mg QD Humulin U 500 in Tandem TSlim with Control IQ. In the past tried Ozempic, Mounjaro Januvia and was intolerant of both due to gi upset. pump setting at this visit Basal rate(s) (units/hour) : 12AM? to 5AM? 0.4 units / hr 5AM? to 12PM? 0.8 units / hr 12PM to 4 PM? 0.9 units / hr 4PM to 12AM 0.5 units / hr? Bolus setting Insulin Carbohydrate Ratio (s) 12AM? to 12PM? 1:10 12PM to 12AM 1:10 4PM = 1:11 Correction Factor / Sensitivity Factor 12AM? to 5 AM? 1:60 5 AM to 12 AM 1:55 Active Insulin Time:? Control IQ defaults to 5 hours Target(s): 12AM? to 12AM? 120 Pump Activities Sleep Schedule: On His total daily insulin dose is 24.13 units in 24 hour 67% basal 33 % food bolus 5 % correction bolus 13% Control IQ bolus CGM: In the last 2 weeks with an average of 174 . 1 % less than 65. 61 % between 65- 170. 39% above 170. continuous glucose monitoring in use. Control IQ in use 67% of the time. Pattern shows post-breakfast and post- dinner hyperglycemia. It appears the patient has not bolusing before meals Exercise:very limited General Accountant - CDE education: currently Moving Van Driver: jailyn joseph Dental exam: long time ago Ophthalmology evaluation: 10/2024 ou mild NPDR Labs received from [facility] 11/08/17 KARMEN negative C-Peptide 3.6 (fasting bg 163) islet cell antibody negative 10/26/16 GAD65 0.12 c-peptide 4.1 Had angioedema from lisinopril [facility] Medical History (Updated 11/06/24 @ 15:32 by MINO Lee) Uncontrolled type 1 diabetes mellitus with hyperglycemia, with long-term current use of insulin B12 deficiency Primary immune deficiency disorder Hypertension Mild non proliferative diabetic retinopathy Obesity (BMI 30-39.9) 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), managed as type 1 Dyslipidemia Surgical History Hx of sigmoidoscopy H/O hand surgery Hx of knee surgery History of testicular surgery Hx of tonsillectomy Hx of colonoscopy History of appendectomy Family History Father HTN (hypertension) Mother Thyroid disease Hypercholesterolemia Brother Diabetes mellitus Social History Household Members: None Alcohol intake: never Patient Tobacco Use Status: Never used Tobacco Physical Exam Vital Signs: Last Vital Signs Pulse 67 11/06/24 15:27 BP 152/60 H 11/06/24 15:27 Pulse Ox 95 11/06/24 15:27 Oxygen Delivery Method Room Air 11/06/24 15:27 BMI result Body Mass Index 34.8 Absence of Cushingoid features. Absence of acromegalic features. Neck exam reveals nl size thyroid about 15 gms. No thyroid nodules palpable. No carotid bruits present. Lungs CTA. Heart S1 S2, Reg R/R. No M/R/ G. Skin exam reveals absence of vitiligo or acanthosis nigricans. Abdominal exam reveals Soft NT/ND with NA BS. No organomegaly present. Neck Other: . Extrem Other: Visual exam of foot performed. No ulcerations or open lesions. There is a scaly lesion on both extremities. There is also 2+ edema present bilaterally No onchomycosis, no callouses.Pulses 2 + distally Sensation intact to monofilament exam. Vibratory sensation sensed is intact with 128 Hz tuning fork Results AMB Hemoglobin A1c AMB Hemoglobin A1c 7.6 % Last Edit by MINO Lee on 11/06/24 16:11 Results Reviewed Results Reviewed: Laboratory Last Values Glucose (Clinic) 152 mg/dL (60-115) H 11/06/24 15:41 Hgb A1c (Clinic) 7.6 % (4.0-6.0) H 11/06/24 15:45 Assessment & Plan Assessment & Plan (1) Uncontrolled type 1 diabetes mellitus with hyperglycemia, with long-term current use of insulin: Code(s): E10.65 - Type 1 diabetes mellitus with hyperglycemia Category: Medical Plan: This is a 59-year-old white male labeled as LAD a type 1 but most probably type 2 with insulin resistance considerin KARMEN and islet cell negative currently treated with metformin, and a tandem T- slim pump with good but deteriorate glycemic control and known microvascular and macrovascular complications namely retinopathy, neuropathy and CAD. The plan is to tighten the insulin to carbohydrate ratio before breakfast to 1:9 . We will also emphasize the patient to bolus prior to meal intake for Will also check lipid profile and microalbumin to creatinine ratio. Orders: Orders AMB Hemoglobin A1c 11/06/24 E10.65 - Type 1 diabetes mellitus with hyperglycemia Microalbumin, Random (w Creat) 11/06/24 E10.65 - Type 1 diabetes mellitus with hyperglycemia Coding Level of Care Code Est Pt Level 4 (42195) Complex EM visit Add On G2211 Diagnoses Uncontrolled type 1 diabetes mellitus with hyperglycemia, with long-term current use of insulin E10.65
[2024-11-06 15:27] VITALS: BP 152/60; PULSE 67; O2SAT 95; BMI 34.8
[2024-11-06 15:45] LABS: Glucose, Whole Blood 152 mg/dL (60-115)
--- OUTSIDE RECORDS SUMMARY | 2024-11-06 17:56 | XMS_ITS | Clinical Summary ---
Author Organization [facility] Address [address] [place] [address] Care Team Providers Care Experimental Outboard [employer] Mechanic Name Role Phone Rere Rosas MD Primary Care Provider Unava ilable Allergies Active Allergy Reactions Severity Noted Date Comments Insulins Hives/Urticaria 11/14/2017 Synthetic insulin. Able to tolerate human insulin Penicillin V Hives/Urticaria 11/14/2017 Sulfa Drugs Hives/Urticaria 11/14/2017 Medications Medication Sig Dispensed Refills Start Date End Date Status Insulin Lispro (HUMALOG SC) Inject into the skin. Via pump 0 Active MetFORMIN HCl 500 MG TABLET SR 24 HR Take 1,000 mg by mouth 2 times daily. 0 Active rosuvastatin (CRESTOR) 40 MG tablet Take 40 mg by mouth daily. 0 Active lisinopril (PRINIVIL,ZESTRIL) 20 MG tablet Take 20 mg by mouth daily. 0 Active metoprolol (TOPROL-XL) 200 MG 24 hr tablet Take 200 mg by mouth daily. 0 Active amlodipine (NORVASC) 10 MG tablet Take 10 mg by mouth daily. 0 Active Immune Globulin, Human, 30 GM/300ML Solution Inject as directed. 60gm every 3 weeks 0 Active MULTIPLE VITAMIN OR Take 1 Tab by mouth daily. 0 Active aspirin 81 MG chewable tablet Take 81 mg by mouth 2 times daily. 0 Active Cholecalciferol (VITAMIN D) 1000 UNITS Tab Take 1,000 Units by mouth daily. 0 Active Marshall-3 Fatty Acids (FISH OIL) 1000 MG Cap Take 1 Tab by mouth daily. 0 Active Psyllium (METAMUCIL OR) Take by mouth daily as needed. 0 Active beclomethasone (QVAR) 80 MCG/ACT inhaler Inhale 2 Puffs into the lungs 2 times daily. 0 Active Active Problems Problem Noted Date JODI (latent autoimmune diabetes in adul ts), managed as type 1 04/05/2018 Overview: 03/2018 Diagnosis changed to type 1 d/t presence of antibodies. On Insulin pump Insulin pump in place 04/05/2018 History of MRSA infection 04/05/2018 Overview: 2017 Cutaneous abscess Cellulitis of left lower extremity 04/05 Overview: 02/16/2018 IP [facility] with Cellulitis, UTI, & Viral Bronchitis,02/21/18 Trans [facility] for further eval & ID consults Levaquin UTI & Viral Bronchitis resolved, swelling/pain improved, but cellulitis persisted 02/26 Switched to oral Levaquin 750 mg daily & oral Linezolid 600 mg bid upon discharge & remained on until 03/13 03/13 - 03/15/18 Readmitted 2 wks after discharge w/ Recurrent non-purulent Cellulitis also had bilateral interdigital hyperkeratotic tinea pedis Fatty liver 11/21/2017 Hemorrhoids 11/21/2017 Agammaglobulinemia 11/21/2017 Overview: Gammaglobulin infusions q 3 weeks ( since age 15) SUHAIL (obstructive sleep apnea) 11/21/2017 CAD (coronary artery disease) 11/21/2017 Overview: 2006, Old [place], Hypertension 11/21/2017 Hyperlipidemia 11/21/2017 Anastomotic stricture of colorectal allyson on 11/21/2017 Overview: Yearly dilation, last performed 09/2017 Pulmonary nodules 11/21/2017 Overview: Ct 05/2017 Stable: Left apical 4 mm, Right lower lobe 6mm nodule Colon polyps 11/21/2017 Overview: 2016 hyperplastic excised History of rectal cancer 11/14/2017 Overview: 08/2014, Stage I, T2 N0, low anterior resection Immunizations Name Administration Dates Next Due Influenza (> 6 Months) 03/30/2018 Family History Medical History Relation Name Comments No Known Problems Brother No Known Problems Father No Known Problems Maternal Grandfather No Known Problems Maternal Grandmother No Known Problems Mother No Known Problems Paternal Grandfather Cancer of the Colon Paternal Grandmother mid 80's Relation Name Status Comments Brother Father Maternal Grandfather Maternal Grandmother Mother Paternal Grandfather Paternal Grandmother Social History Tobacco Use Types Packs/Day Years Used Date Smoking Tobacco: Never Smokeless Tobacco: Never Alcohol Use Standard Drinks/Week Comments No 0 (1 standard drink = 0.6 oz pur e alcohol) Sex Assigned at Date Recorded Not on file Last Filed Vital Signs Vital Sign Reading Time Taken Comments Blood Pressure 135/75 05/21/2019 3:36 PM EST Pulse 72 05/21/2019 3:36 PM EST Temperature 36.9 ??C (98.4 ??F) 05/21/2019 3:36 PM ES T Respiratory Rate 18 04/30/2018 10:15 AM EST Oxygen Saturation 96% 05/22/2018 9:43 AM EST Inhaled Oxygen Concentration - - Weight 131.5 kg (290 lb) 05/21/2019 3:36 PM EST Height 198.1 cm (6' 6 ) 05/21/2019 3:36 PM EST Body Mass Index 33.51 05/21/2019 3:36 PM EST Plan of Treatment Health Maintenance Due Date Last Done Comments Covid-19 Vaccine (#1) 1965 DIABETES/HEART DISEASE: BRITTANY AL CHOLESTEROL (LDL) 1983 DIABETES: ANNUAL EYE EXAM 1983 DIABETES: ANNUAL FOOT EXAM 1983 DIABETES: ANNUAL URINE PROTE IN TEST (MICROALBUMIN) 1983 DIABETES: BLOOD SUGAR CONTRO L TEST (HGBA1C) 1983 HEPATITIS C SCREENING 1983 DTAP/TDAP/TD (1 - Tdap) 02/27/1984 PNEUMOCOCCAL VACCINE FOR HIG H RISK PATIENTS (#1) 02/27/1984 BASELINE HEALTH EXAM 40-64 2005 SHINGLES VACCINE (1 of 2) 2015 COLON CANCER SCREENING 09/10/2018 8 (External Completion), 09/10/2017, 10/13/2015 (External Completion), Additional history exists BMI CHECK/ADVISE 06/04/2024 05/21/2019, , 05/22/2018, Additional history exists INFLUENZA (Season Ended) 2025 03/30/2018 Care Teams Experimental [employer]board [employer] Mechanic Relationship Specialty Start Date End Date Rere Rosas MD PCP - General Family Practice 06/04/14
== END 2024-11-06 16:08 | disposition home or self-care (01) ==
LOC: HO.ENCR 15:26
PROVIDERS: PCP Family Medicine; Visit Provider Internal Medicine Endocrinology, Diabetes & Metabolism
DX: E10.65 Type 1 diabetes mellitus with hyperglycemia (principal)

== ENCOUNTER → 2024-11-06 15:25 | Outpatient (BNVA) | payer OTHER, SELFPAY | PROVIDERS: PCP Family Medicine; Visit Provider Internal Medicine Endocrinology, Diabetes & Metabolism | DX: Z46.81 Encounter for fitting and adjustment of insulin pump (principal); E10.65 Type 1 diabetes mellitus with hyperglycemia; Z79.4 Long term (current) use of insulin | CPT/HCPCS: 82947; 83036; 99212 ==

== ENCOUNTER 2024-11-27 15:18 | Outpatient (AMB) | payer OTHER, SELFPAY ==
--- NOTE | 2024-11-27 15:36 | MHC.AMDMED ---
Intake Intake Visit Reasons: 60 min Therapy Administrative Assistant Required: No Accompanied by: Self / Same As Patient Allergies lisinopril Allergy (Severe, Verified 11/06/24 15:31) Swelling penicillin V Allergy (Unknown, Verified 11/06/24 15:31) hives Sulfa (Sulfonamide Antibiotics) Allergy (Unknown, Verified 11/06/24 15:31) hives synthetic insulin Allergy (Unknown, Uncoded 11/06/24 15:31) hives januvia Adverse Reaction (Mild, Uncoded 11/06/24 15:31) Gastrointestinal Upset ozempic Adverse Reaction (Mild, Uncoded 11/06/24 15:31) Abdominal Pain PFSH Medical History (Updated 11/06/24 @ 15:32 by MINO Lee) Uncontrolled type 1 diabetes mellitus with hyperglycemia, with long-term current use of insulin B12 deficiency Primary immune deficiency disorder Hypertension Mild non proliferative diabetic retinopathy Obesity (BMI 30-39.9) 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), managed as type 1 Dyslipidemia Surgical History Hx of sigmoidoscopy H/O hand surgery Hx of knee surgery History of testicular surgery Hx of tonsillectomy Hx of colonoscopy History of appendectomy Family History Father HTN (hypertension) Mother Thyroid disease Hypercholesterolemia Brother Diabetes mellitus Social History Household Members: None Alcohol intake: never Patient Tobacco Use Status: Never used Tobacco Assessment & Plan Assessment & Plan (1) 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 T slim with control IQ and Dexcom G6 The following topics were reviewed today: -? how to treat hypoglycemia -bolusing 30 minutes prior to meals ??? High Alert: 200 mg/dl ??? Low Alert: 70 mg/dl? Patient's last A1c 7.6% 11/06/24 Patient is still not bolusing for all meals, asked patient if he refrains from bolusing because he is concerned about hypoglycemia. Patient stated that he has a low before meals, so he does not want to take insulin. Instructed patient to treat low blood sugar with 15 g fast acting carbohydrate, after glucose is back in target bolus for a meal He is using sweet tarts to treat low glucose, reports up to 20. Suggested to patient he check label to see how many Sweet Tarts equal approximately 15 gm At this visit we were unable to review all glucose data, could not get pump upload. Patient complained of battery on pump running low quickly, patient's pump will be out of warranty on 02/15/2025. Instructed patient to contact tandem regarding charging issue Insulin delivery setting: Troubleshooting after starting new pod or inserting new insulin set: Occlusion, adhesive tape sensitivity, redness Check BG 2 hours after site change 5 AM to 12 PM I:CHO adjusted to 1-[address] Blackman's note on 11/06/2024 ?Setting verified by [facility]. 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
== END 2024-11-27 15:52 | disposition home or self-care (01) ==
LOC: HO.ENCR 15:18
PROVIDERS: PCP Family Medicine; Visit Provider Registered Nurse Diabetes Educator
DX: E13.9 Other specified diabetes mellitus without complications (principal)

== ENCOUNTER → 2024-11-27 15:18 | Outpatient (BNVA) | payer OTHER, SELFPAY | PROVIDERS: PCP Family Medicine; Visit Provider Registered Nurse Diabetes Educator | DX: Z46.81 Encounter for fitting and adjustment of insulin pump (principal); Z96.41 Presence of insulin pump (external) (internal); E13.9 Other specified diabetes mellitus without complications | CPT/HCPCS: 99211 ==

== ENCOUNTER 2025-02-09 13:40 | Outpatient (AMB) | payer OTHER, SELFPAY ==
--- OUTSIDE RECORDS SUMMARY | 2024-03-10 10:00 | XMS_ITS | Encounter Summary ---
Author Organization [facility] Address [address] [place] [address] Care Team Providers Care Vendor Analyst Name Role Phone Sonja Cobb MD Primary Care Provider [phone] Encounter Details Date Type Department Care Team (Late st Contact Info) Description 03/10/2024 10:00 AM EDT Hospital Encounter TH HISTORIC ENCOUNTERS [facility] ONLY Dami Rivas MD [address] [place] [phone] Social History Tobacco Use Types Packs/Day [...] infection. ?? He is followed by a solar electric installer. The fungal infection resolved on antifungal cream. [...] in 01/2020. He was evaluated by an drill press operator. He started [id number] medication with excellent control of the hives. ?? He developed a left thigh cellulitis in 05/2020, requiring hospitalization at [place] with a debridement and antibiotic therapy. ?? [...] oral iron. I referred him back to [facility] for an endoscopic evaluation and observation was [...] infection. ?? He is followed by a solar electric installer. The fungal infection resolved on antifungal cream. [...] in 01/2020. He was evaluated by an drill press operator. He started [id number]-hjidkyb medication with excellent control of the hives. ?? He developed a left thigh cellulitis in 05/2020, requiring hospitalization at [facility] with a debridement and antibiotic therapy. ?? [...] Care Team (Late st Contact Info) Description 03/11/2025 10:00 AM EDT Office Visit [facility] Hematology Oncology [address] [place] [phone] Dami Rivas MD [address] [place] [phone] 05/07/2025 2:45 PM EST Office Visit Orthopedic Surgery [facility] [address] [phone] Russ Dixon DPM [address] [phone] documented as of this encounter Visit Diagnoses Not on filedocumented in this encounter Care Teams Vendor Analyst Relationship Specialty Start Date End Date Sonja Cobb MD [address] [place] [address] PCP - General 03/10/24 03/16/24 documented as of this encounter
--- OUTSIDE RECORDS SUMMARY | 2025-02-05 15:30 | XMS_ITS | Encounter Summary ---
Author Organization [facility] Address [address] [place] [address] Care Team Providers Care [employer] Caretaker Name Role Phone Rere Rosas MD Primary Care Provider [phone] Reason for Visit * Reason Comments DM Foot Care DM Foot Care * Consultation (Routine) - Closed Specialty Diagnoses / Procedures Referred By Contact Referred To Contact Podiatry / Orthopaedic Surgery Diagnoses Type 1 diabetes mellitus with hyperglycemia ([facility] V24, [facility] V28) Rere Rosas MD [address] [place] [phone] Phone: tel:[phone] fax:[phone] Russ Dixon DPM [address] [address] Phone: tel: fax: Referral ID Status Reason Start Date Expiration Date V isits Requested Visits Authorized [id number] Closed Specialty Services Required 08/11/2024 08/11/2025 1 1 Encounter Details Date Type Department Care Team (Late st Contact Info) Description 02/05/2025 3:30 PM EDT Office Visit Orthopedic Surgery - [place] [address] [address] Russ Dixon DPM [address] [address] Dermatophytosis of nail (Primary Dx); Diabetic mononeuropathy simplex ([facility] V24, [facility] V28) Social History Tobacco Use Types Packs/Day Years [...] PM EDT documented as of this encounter Progress Notes * Russ Dixon DPM - 02/05/2025 3:30 PM EDT Ngoc Clarke is a 59 y.o. year old male presents complaining of chronic pain discomfort of both lower extremity states he is long painful thickened nails and skin occasion gets numbness burning ting to his feet otherwise well-controlled diabetic last A1c was 6 reports that he has immunoglobulin issues he states that he is a nonfunctional immune system and states he is not optimistic of treatment of fungus and does not want to try anything however does have a longer painful thickened nails ROS: GENERAL: Pt denies nausea, fever, vomiting, chills, or shortness of breath. Pt in NAD. CARDIOLOGY: pt denies chest pain, palpitations LUNGS: pt denies shortness of breath MUSCULOSKELETAL: See HPI, otherwise no joint pain or swelling, back pain, or muscle pain. SKIN: see HPI, otherwise no lesions, rash or itching NEURO: No persistent headache, weakness or numbness The remainder of the review of systems is noncontributory PAST MEDICAL HISTORY: There is no problem list on file for this patient. Type 1 diabetes SOCIAL HISTORY: Social History Tobacco Use Smoking status: Not on file Smokeless tobacco: Not on file Substance Use Topics Alcohol use: No ACTIVE MEDICATIONS: No outpatient medications have been marked as taking for the 02/05/25 encounter (Office Visit) with Russ Dixon DPM. ALLERGIES: Allergies Allergen Reactions Acetazolamide Other Reaction(s): unsure Insulin Glargine Other Reaction(s): rash,hives,angioedema Insulins Other Reaction(s): Hives/Urticaria, synthetic insulin:angioedema,rash,hives Synthetic insulin. Able to tolerate human insulin Lisinopril Other Reaction(s): angioedema Penicillins Hives, Rash and Swelling Other Reaction(s): Hives/Urticaria, O/E - joint swelling Tolerates ceftriaxone Sulfa (Sulfonamide Antibiotics) Hives and Rash PHYSICAL EXAM: Visit Vitals Smoking Status Never Assessed PODIATRIC EXAMINATION: GENERAL: Patient appears well nourished, with NAD. VASCULAR: Dorsalis pedis pulses are 2/4 bilaterally and Posterior tibial pulses are 2/4 bilaterally. Capillary filling time within normal limits the digits. No pallor on elevation or rubor on dependency. No varicosities. Denies rest pain or claudication pain. NEUROLOGICAL: Sharp/dull sensation diminished, protective sensation intact 10/10 with Ipswitch touch test bilaterally, vibratory sensation intact to the tibial tuberosity. ORTHOPEDIC: Good muscle strength 5/5 of all flexors and extensors. Dorsi flexion of ankle ,10 degrees, plantar flexion WNL. No muscle atrophy. DERMATOLOGICAL:. Toenails: Left Toenail(s) 1-5: subungual debris, discoloration, hypertrophic, elongation, mycotic appearance, onychomycosis, pain and thickening. Right Toenail(s) 1-5: subungual debris, discoloration, hypertrophic, elongation, mycotic appearance, onychomycosis, pain and thickening. Annular scaling bilateral feet moccasin distribution Skin thinning texture shiny appearance diffuse hyperpigmentation bilaterally pedal hair decreased BIOMECHANICS: Ankle ROM WNL, STJ ROM wnl, MTJ ROM wnl, 1st MPJ ROM wnl. IMAGING: IMPRESSION: 1. Dermatophytosis of nail 2. Diabetic mononeuropathy simplex ([facility] V24, [facility] V28) PLAN: Pt was seen and examined, history reviewed. Nails cleaned out by topical therapy continue clotrimazole previously prescribed as well as other treatment options weight finger soaks discussed and reviewed Discussed with patient regarding proper glucose control, exercise, and diet. Explained to patient proper shoe gear, and importance of daily foot checks. I reviewed neuropathy and why it occurs in diabetics. I educated the patient on proper blood sugar control and the importance of an HgBA1c of less than 7.0%. I reviewed the signs and symptoms of neuropathy with the patient Pt to return for another evaluation in 3 months. Russ Dixon DPM documented in this encounter Plan of Treatment Upcoming Encounters Date Type Department Care Team (Late st Contact Info) Description 03/11/2025 10:00 AM EDT Office Visit [facility] Hematology Oncology [address] [place] [phone] Dami Rivas MD [address] [place] [address] 05/07/2025 2:45 PM EST Office Visit Orthopedic Surgery [facility] [address] [phone] Russ Dixon DPM [address] [address] documented as of this encounter Visit Diagnoses Diagnosis Dermatophytosis of nail- Primary Diabetic mononeuropathy simplex ([facility] V24, 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
--- NOTE | 2025-02-09 13:43 | A.OFFVIS_ITS ---
Vital Signs 02/09/25 13:47 Height 6 ft 6 in Weight 291 lb 7.218 oz BMI 33.7 BP 158/70 H Blood Pressure Location Rt brachial Position Sitting Pulse 66 Pulse Source Pulse Oximeter Pulse Oximetry (%) 96 Oxygen Delivery Method Room Air Intake Visit Reasons: T1DM Intake Note: Patient present today to follow up on T1DM JODI. Last Diabetic Eye exam: 10/14/2024 [facility] [place] Last Podiatry Visit: 10/07/2024 Dr. Dixon Random Glucose: 236 mg/dl HgA1C: 6.6% 02/09/2025 Litigation Docket Manager Required: No Accompanied by: Self / Same As Patient Allergies lisinopril Allergy (Severe, Verified 02/09/25 13:47) Swelling penicillin V Allergy (Unknown, Verified 02/09/25 13:47) hives Sulfa (Sulfonamide Antibiotics) Allergy (Unknown, Verified 02/09/25 13:47) hives synthetic insulin Allergy (Unknown, Uncoded 02/09/25 13:47) hives januvia Adverse Reaction (Mild, Uncoded 02/09/25 13:47) Gastrointestinal Upset ozempic Adverse Reaction (Mild, Uncoded 02/09/25 13:47) Abdominal Pain Medication List - Last Reconciled 02/09/25 by El Blackman MD acetone (urine) test (Ketone Urine Test strips) As directed amlodipine 10 mg PO QAM 90 days aspirin 162 mg PO DAILY blood sugar diagnostic As directed blood sugar diagnostic (Contour Test Strips) As directed prn sensor failure or to confirm glucose tid countour lite strips blood-glucose sensor (Dexcom G6 Sensor device) USE TO MONITOR BLOOD SUGAR, CHANGE SENSOR EVERY 10 DAYS DIRECTED blood-glucose transmitter (Dexcom G6 Transmitter device) DIRECTED cetirizine 10 mg PO DAILY PRN cyanocobalamin (vitamin B-12) 500 mcg PO DAILY empagliflozin (Jardiance) 25 mg PO DAILY ezetimibe 10 mg PO DAILY fluticasone propionate 110 mcg/actuation 2 puffs PO BID fluticasone propionate 50 mcg/actuation 2 sprays intranasal DAILY glucagon 3 mg/actuation (Baqsimi) 3 mg intranasal .prn PRN 30 days MDD 6 mg insulin regular hum U-500 conc (Humulin R U-500 (Concentrated) Insulin) 200 units (0.4 mL) subcut DAILY L. gasseri-B. bifidum-B longum 1.5 billion cell (Ammado) 1 cap PO DAILY meclizine 25 mg PO TID PRN metformin ER 1,000 mg (2 x 500 mg) PO BID metoprolol succinate ER 200 mg PO QAM multivitamin 1 tab PO DAILY multivitamin with iron 1 tab PO DAILY pen needle, diabetic As directed rosuvastatin 40 mg PO DAILY 90 days spironolactone 25 mg PO DAILY HPI Comments Details: Patient is a 59-year-old male with DM type 1/JODI diagnosed at age 35 who presents for management of diabetes. He is karmen positive with preserve beta cell function. . He was forgetting his bolus with many snacks and meals. Past medical history: Dm 1/Jodi, hypertension, hyperlipidemia, primary immune deficiency disorder, rectal carcinoma status post resection, coronary artery disease with myocardial infarction at age 41, gammaglobuin anemia Micro and macrovascular complications: Neuropathy, mild nonproliferative diabetic retinopathy, bilateral, coronary artery disease. Diabetes medications: Metformin 1000 mg twice a day, Jardiance 25 mg QD Humulin U 500 in Tandem TSlim with Control IQ. In the past tried Ozempic, Mounjaro Januvia and was intolerant of both due to gi upset. pump setting at this visit Basal rate(s) (units/hour) : 12AM? to 5AM? 0.4 units / hr 5AM? to 12PM? 0.8 units / hr 12PM to 4 PM? 0.8 units / hr 4PM to 12 MN 0.5 units / hr? Bolus setting Insulin Carbohydrate Ratio (s) 12AM? to 12PM? 1:9.5 12PM to 4 PM 1:10 4PM to 5 PM = 1:11 5PM to 12 AM = 1:9 Correction Factor / Sensitivity Factor 12AM? to 5 AM? 1:60 5 AM to 12 AM 1:55 Active Insulin Time:? Control IQ defaults to 5 hours Target(s): 12AM? to 12AM? 120 Pump Activities Sleep Schedule: On His total daily insulin dose is 22.3 units in 24 hour 52% basal 48 % food bolus 5 % correction bolus 13% Control IQ bolus CGM: In the last 2 weeks with an average of 190 . 0 % less than 49 % between 65- 170. 51% above 170. continuous glucose monitoring in use. Control IQ in use 61% of the time. Pattern shows post-breakfast and to a lesser extent post lunch and post-dinner hyperglycemia. It appears the patient has not bolusing before meals Exercise:very limited No hypoglycemia Exchange Administrator - CDE education: currently Stitching Machine Feeder Or Offbearer: jailyn joseph Dental exam: long time ago Ophthalmology evaluation: 10/2024 ou mild NPDR Labs received from [facility] 11/08/17 KARMEN negative C-Peptide 3.6 (fasting bg 163) islet cell antibody negative 10/26/16 GAD65 0.12 c-peptide 4.1 Had angioedema from lisinopril [facility] Medical History (Updated 11/06/24 @ 15:32 by MINO Lee) Uncontrolled type 1 diabetes mellitus with hyperglycemia, with long-term current use of insulin B12 deficiency Primary immune deficiency disorder Hypertension Mild non proliferative diabetic retinopathy Obesity (BMI 30-39.9) 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), managed as type 1 Dyslipidemia Surgical History Hx of sigmoidoscopy H/O hand surgery Hx of knee surgery History of testicular surgery Hx of tonsillectomy Hx of colonoscopy History of appendectomy Family History Father HTN (hypertension) Mother Thyroid disease Hypercholesterolemia Brother Diabetes mellitus Social History Household Members: None Alcohol intake: never Patient Tobacco Use Status: Never used Tobacco Physical Exam Vital Signs: Last Vital Signs Pulse 66 02/09/25 13:47 BP 158/70 H 02/09/25 13:47 Pulse Ox 96 02/09/25 13:47 Oxygen Delivery Method Room Air 02/09/25 13:47 BMI result Body Mass Index 33.7 Absence of Cushingoid features. Absence of acromegalic features. Neck exam reveals nl size thyroid about 15 gms. No thyroid nodules palpable. No carotid bruits present. Lungs CTA. Heart S1 S2, Reg R/R. No M/R/ G. Skin exam reveals absence of vitiligo or acanthosis nigricans. Abdominal exam reveals Soft NT/ND with NA BS. No organomegaly present. Neck Other: . Extrem Other: Visual exam of foot performed. No ulcerations or open lesions. There is a scaly lesion on both extremities. There is also 2+ edema present bilaterally No onchomycosis, no callouses.Pulses 2 + distally Sensation intact to monofilament exam. 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), managed as type 1: Code(s): E13.9 - Other specified diabetes mellitus without complications Category: Medical Plan: See below plan (2) Uncontrolled type 1 diabetes mellitus with hyperglycemia, with long-term current use of insulin: Code(s): E10.65 - Type 1 diabetes mellitus with hyperglycemia Category: Medical Plan: This is a 59-year-old white male labeled as LAD a type 1 but most probably type 2 with insulin resistance considerin KARMEN and islet cell negative currently treated with metformin, and a tandem T- slim pump with excellent improved glycemic control and known microvascular and macrovascular complications namely retinopathy, neuropathy and CAD. The plan is to continue curent regimen. 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
[2025-02-09 13:47] VITALS: BP 158/70; PULSE 66; O2SAT 96; BMI 33.7
[2025-02-09 14:02] LABS: Glucose, Whole Blood 236 mg/dL (60-115)
--- OUTSIDE RECORDS SUMMARY | 2025-02-09 15:53 | XMS_ITS | Clinical Summary ---
Author Organization [facility] Address [address] [address] Phone Care Team Providers Care Coating Technician Name Role Phone Rere Rosas MD Primary Care Provider Allergies Active Allergy Reactions Criticality Noted Date Comments Insulins 04/17/2019 Penicillins 04/17/2019 Sulfa (Sulfonamide Antibiotics) 04/04 Social History Tobacco Use Types Packs/Day Years Used Date Smoking Tobacco: Never Smokeless Tobacco: Never Alcohol Use Standard Drinks/Week Comments Not Currently 0 (1 standard drink = 0.6 oz pur e alcohol) Education Answer Date Recorded Are you interested in more education? Not on moni e 09/29/2022 Are you concerned about learning? Not on file 09/29/2022 No 09/29/2022 No 09/29/2022 Digital Access Answer Date Recorded No 10/24/2022 No 10/24/2022 No 10/24/2022 Reliable internet access at home? Not on file 10/24/2022 Device with a working camera? Not on file Sex and Gender Information Value Date Recorded Sex Assigned at Male 04/17/2019 4:52 PM EST Legal Sex Male 4:29 PM EST Gender Identity Male 04/17/2019 4:52 PM EST Sexual Orientation Choose not to disclose 2018 4:52 PM EST Last Filed Vital Signs Vital Sign Reading Time Taken Comments Blood Pressure 133/55 04/17/2019 7:00 PM EST Pulse 61 04/17/2019 7:00 PM EST Temperature 36.5 C (97.7 F) 04/17/2019 7:00 PM EST Respiratory Rate 19 04/17/2019 7:00 PM EST Oxygen Saturation 99% 04/17/2019 7:00 PM EST Inhaled Oxygen Concentration - - Weight 113.4 kg (250 lb) 04/17/2019 4:56 PM EST Height 180.3 cm (5' 11 ) 04/17/2019 4:56 PM EST Body Mass Index 34.87 04/17/2019 4:56 PM EST Plan of Treatment Health Maintenance Due Date Last Done Comments Adult Td,Tdap Booster 1965 LIPID PANEL 1965 DEPRESSION SCREENING 1977 HEPATITIS C SCREENING 1983 HIV ONE-TIME SCREENING (18-6 5 YEARS) 1983 COLOGUARD 2010 COLONOSCOPY 2010 COLORECTAL CANCER SCREENING 2010 FIT TEST 2010 FOBT 2010 SIGMOIDOSCOPY 2010 VIRTUAL COLONOSCOPY 2010 PNEUMOCOCCAL VACCINES (50+ years) (1 of 1 - PCV) 2015 ZOSTER VACCINES (1 of 2) 2015 INFLUENZA VACCINE (#1) 2025 03/30/2018 COVID-19 VACCINE (3 - 2024-2 6 season) 2025 10/04/2020, 09/06/2020 SMOKING STATUS SCREENING (On ce After 26 Yrs) Completed 04/17/2019 HEPATITIS A VACCINES Aged Out No long er eligible based on patient's age to complete this topic HIB VACCINES Aged Out No longer eligi ble based on patient's age to complete this topic MENINGOCOCCAL VACCINES (ACWY) Aged Out No longer eligible based on patient's age to complete this topic MENINGOCOCCAL VACCINES (B) Aged Out N o longer eligible based on patient's age to complete this topic Medical Devices Not on file [place] [address] [facility] [employer] [place] [address] [place] [address] [employer] [facility] [employer] [place] [address] [place] [address] [employer] [place] [address] [place] [address] [employer] [facility] [employer] DIRECT [facility] [employer] DIRECT Care Teams Coating Technician Relationship Specialty Start Date End Date Rere Rosas MD [address] [place] [address] PCP - General Family Medicine 04/17/19 Additional Source Comments The information contained in this document represents components of the legal health record. It is not the complete legal health record.[facility]
--- OUTSIDE RECORDS SUMMARY | 2025-02-09 15:53 | XMS_ITS | Clinical Summary ---
Author Organization [facility]. Address [address] [place] [address] Phone Care Team Providers Care Goodwill Ambassador Name Role Phone Sonja Cobb MD Primary Care Provider [phone] Allergies Active Allergy Reactions Criticality Noted Date Comments Acetazolamide 10/23/2022 Other Reaction(s): unsure Insulins Hives 11/14/2017 Other Reaction(s): rash,hives,angioedema, synthetic insulin:angioedema,rash ,hives Synthetic insulin. Able to tolerate human insulin Lisinopril Swelling 03/14/2023 [...] Active Continuous Glucose Transmitter (Dexcom G6 Transmitter) [facility] [place] See administration instructions 05/29/20 24 Active Cyanocobalamin [...] Vitamin (Multi-Vitamin) tablet Take by mouth Active Talbott-3 1000 MG capsule Take by mouth Active [...] lower limb 04/05/2018 Overview (07/15/2024): 02/16/2018 IP [facility] [place] with Cellulitis, UTI, & Viral Bronchitis,02/21/18 Trans [facility] [place] for further eval & ID consults Levaquin [...] Coronary arteriosclerosis 11/21/2017 Overview (07/15/2024): 2006, [place], Agammaglobulinemia 11/21/2017 Overview (07/15/2024): Gammaglobulin infusions q 3 weeks ( since age 15) History of malignant neoplasm of rectum 11/15/19 18 Overview (07/15/2024): 08/2014, Stage I, T2 N0, low anterior resection 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 Encounters Date Type Department Care Team Description 01/07/2025 3:15 PM EDT Office Visit [facility] [address] [phone] Prem Hernandez MD Hypernatremia (Primary Dx); [...] Sign Reading Time Taken Comments Blood Pressure 121/61 01/07/2025 3:03 PM EDT Pulse 58 01/07/2025 3:03 PM EDT Temperature - - Respiratory Rate - - Oxygen Saturation - - Inhaled Oxygen Concentration - - Weight 134 kg (295 lb) 08/06/2024 1:17 PM EST Height - - Body Mass Index - - Plan of Treatment Health Maintenance Due Date Last Done Comments Hepatitis B Vaccine (1 of 3 - 19+ 3-dose series) 02/27/1984 Pneumococcal Vaccine: 50+ Ye ars (2 of 2 - PCV) 06/28/2005 06/28/2004 Colorectal Cancer Screening: Annual FOBT 2014 Colorectal Cancer Screening: Colonoscopy 2014 Colorectal Cancer Screening: Sigmoidoscopy 2014 Diabetes: Hemoglobin A1C 05/12/2024 Diabetes: Ophthalmology Exam 05/12/2024 Diabetes: Pedal Pulse Checked 05/12/2024 Diabetes: Sensory Foot Exam 05/12/2024 Diabetes: Visual Foot Exam 05/12/2024 Influenza Vaccine (#1) 2025 07/25/2019, 2017 Pneumococcal Vaccine: Peds ( 0 to 5 Years) and At-Risk Patients (6 to 49 Years) Discontinued 06/28/2004 Procedures Procedure Name Priority Date/Time Associated Diagnosis Comments RENAL FUNCTION PANEL (EXTERNAL LAB ENTRY) Routine 12/16/2024 from Last 3 Months Results * Renal Function Panel (External Lab) (12/16/2024) BUN 12 mg/dL eGFR Non-Afr Portuguese 103 Sodium 141 mEq/L Potassium 3.9 mEq/L Chloride 101 Carbon Dioxide 26 mmol/L Calcium 8.9 mg/dL Creatinine 0.77 mg/dL Anion Gap 14 Blood 12/16/2024 us Historical Provider LAB BLOOD ORDERABLES Tosha l Result from Last 3 Months Insurance Care Teams Goodwill Ambassador Relationship Specialty Start Date End Date Sonja Cobb MD [address] [place] [address] PCP - General Internal Medicine 05/12/24
--- OUTSIDE RECORDS SUMMARY | 2025-02-09 15:53 | XMS_ITS | Clinical Summary ---
Author Organization 175 [facility] Address [address] [place] [address] Phone Care Team Providers Care Cardiovascular Radiologic Technologist Name Role Phone Rere Rosas MD Primary Care Provider [phone] Allergies Active Allergy Reactions Criticality Noted Date Comments Acetazolamide 10/07/2024 Other Reaction(s): unsure Insulin Glargine 10/07/2024 Other Reaction(s): rash,hives,angioedem a Insulins 11/14/2017 Other Reaction(s): Hives/Urticaria, synthetic insulin:angioedema,r julianna,hives Synthetic insulin. Able to tolerate human insulin Lisinopril 03/14/2023 Other Reaction(s): angioedema Penicillins Hives,Rash,Swelling 11/14/2017 Other Reaction(s): Hives/Urticaria, O/E - joint swelling Tolerates ceftriaxone Sulfa (Sulfonamide Antibiotics) Hives,Rash 04/17/2019 Medications amLODIPine (NORVASC) 10 mg tablet Take 1 tablet (10 mg total) by mouth 1 (one) time each day in the morning. Active betamethasone dipropionate (DIPROSONE) 0.05 % cream Apply topically. Act jonnie Dexcom G6 Sensor device 09/25/19 25 Active Dexcom G6 Transmitter device See administration instructions. 05/29/20 24 Active rosuvastatin (CRESTOR) 40 mg tablet Take 1 tablet (40 mg total) by mouth 1 (one) time each day. Active metoprolol succinate (TOPROL-XL) 200 mg 24 hr tablet Take 1 tablet (200 mg total) by mouth. 08/13/19 21 Active omega-3 acid ethyl esters (LOVAZA) 1 gram capsule Take 1 capsule (1 g total) by mouth 1 (one) time each day. Active metFORMIN XR (GLUCOPHAGE-XR) 500 mg 24 hr tablet Take 2 tablets (1,000 mg total) by mouth 2 (two) times a day. Active meclizine (ANTIVERT) 25 mg tablet TAKE 1 TABLET BY MOUTH DAILY NEEDED FOR DIZZINESS Active spironolactone (ALDACTONE) 25 mg tablet Take 1 tablet (25 mg total) by mouth 1 (one) time each day. 08/07/19 25 026 Active Ketone Urine Test strip test as directed 12/10/19 24 Active polyethylene glycol (PEG) 17 gram/dose oral powder 08/29/19 25 Active HumuLIN R U-500, Conc, Insulin 500 unit/mL CONCENTRATED injection ADMINISTER 200 UNITS UNDER THE SKIN DAILY 09/26/19 25 Active glucagon (BAQSIMI) 3 mg/actuation nasal spray Administer into affected nostril(s). Active immune globulin, human, (Gammagard Liquid) infusion Inject as directed. 60gm every 3 weeks Active EPINEPHrine (EPIPEN) 0.3 mg/0.3 mL injection 06/06/19 25 Active Jardiance 25 mg tablet Take 1 tablet (25 mg total) by mouth 1 (one) time each day. Active ezetimibe (ZETIA) 10 mg tablet Take 1 tablet (10 mg total) by mouth 1 (one) time each day. Active cyanocobalamin, vitamin B-12, 1,000 mcg tablet, sublingual Place under the tongue. Active cholecalciferol (VITAMIN D-3) 25 mcg (1,000 unit) tablet Take 1 tablet (1,000 Units total) by mouth. Active ferrous sulfate 325 mg (65 mg elemental iron) tablet Take 1 tablet (325 mg total) by mouth. 05/31/20 22 Active fluticasone HFA (FLOVENT HFA) 110 mcg/actuation inhaler 10/07/19 25 Active aspirin 81 mg EC tablet Take 1 tablet (81 mg total) by mouth. Active calcium-vitamin D3-vitamin K 500 mg-200 unit -40 mcg tablet,chewable Chew 25 mcg. 01/06/20 23 Active L. acidophilus/Bifi d. animalis 32 billion cell capsule Take by mouth. Activ e insulin lispro 100 unit/mL injection SUBCUTANEOUS, SOLUTION, 0 Refill(s),, 0 Refills, 01/26/19 13:11:00 EDT 01/27/20 Active Encounters Date Type Department Care Team Description 02/05/2025 3:30 PM EDT Office Visit Orthopedic Surgery [facility] [address] [place] [address] [place] [address] Russ Dixon, DPM Dermatophytosis of nail (Primary Dx); Diabetic mononeuropathy simplex ([facility]/HCC V24, [facility] V28) from Last 3 Months Surgical History Surgery Date Site/Laterality Comments COLONOSCOPY [...] Coronary angiogram OTHER SURGICAL HISTORY 08/13/2014 PROCEDURE: [place] LAPAROSCOPY COLECTOMY PARTIAL W/ANASTOMOSIS; COMMENT: Rectosigmoidectomy, Dr Diaz OTHER SURGICAL HISTORY 2015 PROCEDURE: [place] INTESTINAL PLICATION SEPARATE PROCEDURE; COMMENT: Dr Fang Medical History Medical History Date Comments Fatty liver 11/21/2017 DX:Fatty liver Hemorrhoids 11/21/2017 DX:Hemorrhoids SUHAIL (obstructive sleep apnea) 11/21/2017 DX :SUHAIL (obstructive sleep apnea) CAD (coronary artery disease) 11/21/2017 DX :CAD (coronary artery disease); COMMENT: 2006, [place], Hypertension 11/21/2017 DX:Hypertension Hyperlipidemia 11/21/2017 DX:Hyperlipidemi a 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/2017 DX:Anastomotic stricture of colorectal region; COMMENT: Yearly dilation, last performed 09/2017 Agammaglobulinemia ([facility] V24) 11/21/2017 DX:Agammaglobulinemia (HCC); COMMENT: Gammaglobulin infusions q 3 weeks ( since age 15) Pulmonary nodules 11/21/2017 DX:Pulmonary n odules; COMMENT: Ct 05/2017 Stable: Left apical 4 mm, Right lower lobe 6mm nodule Colon polyps 11/21/2017 DX:Colon polyps; COMMENT: 2016 hyperplastic excised 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 On Insulin pump Insulin pump in place 04/05/2018 DX:Insulin pump in place History of MRSA infection 04/05/2018 DX:His tory of MRSA infection; COMMENT: 2016 Cutaneous abscess Cellulitis of left lower extremity 04/05/2018 DX:Cellulitis of left lower extremity; COMMENT: 02/16/2018 IP [facility] [place] with Cellulitis, UTI, & Viral Bronchitis,02/21/18 Trans [facility] for further eval & ID consults Levaquin UTI & Viral Bronchitis resolved, swelling/pain improved, but cellulitis persisted 02/26 Switched to oral Levaquin 750 mg daily & oral Linezolid 600 mg bid upon discharge & remained on until 03/13 03/13 - 03/15/* History of rectal cancer 11/14/2017 DX:Hist ory [...] Orientation Straight 09/30/2024 4: 30 PM EDT Obstetrics History Last Filed Vital Signs Vital Sign Reading Time Taken Comments Blood Pressure 160/70 03/10/2024 10:12 AM EDT Sitting Right arm Pulse 63 03/10/2024 10:12 AM EDT Temperature - - Respiratory Rate - - Oxygen Saturation - - Inhaled Oxygen Concentration - - Weight 135 kg (297 lb) 10/07/2024 1:16 PM EDT Height 198.1 cm (6' 6 ) 10/07/2024 1:16 PM EDT Body Mass Index 34.32 10/07/2024 1:16 PM EDT Plan of Treatment Upcoming Encounters Date Type Department Care Team (Late st Contact Info) Description 03/11/2025 10:00 AM EDT Office Visit [facility] Hematology Oncology [address] [place] [address] Dami Rivas MD [address] [place] [address] 05/07/2025 2:45 PM EST Office Visit Orthopedic Surgery - [place] [address] [address] Russ Dixon DPM [address] [address] Health Maintenance Due Date Last Done Comments Diabetes: Annual GFR (Glomerular Filtration Rate) 1965 Diabetes: Annual Foot Exam 1975 Diabetes: Annual Retina Eye Exam 1975 Hepatitis A Vaccines (1 of 2 - Risk 2-dose series) 02/27/1984 Hepatitis B Vaccines (1 of 3 - 19+ 3-dose series) 02/27/1984 Pneumococcal Vaccine: 50+ Years (2 of 2 - PCV) 06/28/2005 06/28/2004 Cholesterol Screening (Lipid Panel) 05/13/2022 Colorectal Cancer Screening: Colonoscopy 05/13/2022 HIV Screening 05/13/2022 Hepatitis C Screening 05/13/2022 Social Influencers of Health Screening 05/13/2022 Diabetes: Annual Urine Albumin-Creatinine Ratio (uACR) 05/18/2022 Diabetes: Blood Sugar Control Test (HGBA1C) 05/18/2022 Hypertension/CHF/CAD Annual BMP Blood Test 05/18/2022 Depression Screening 06/04/2024 COVID-19 Vaccine ( season) 2025 03/08/2023, 06/14/2021, 10/04/2020, Additional history exists Influenza Vaccine (#1) 2025 , 05/18/2022, 05/04/2021, Additional history exists DTaP,Tdap,and Td Vaccines (2 - Td or Tdap) 03/08/2033 03/08/2023 RSV Immunization Adult Patients (1 - 1-dose 75+ series) 02/27/2040 Zoster Vaccines Completed 05/09/2023, 03/08/2023 HIB Vaccines Aged Out No longer eligi [...] age to complete this topic Meningococcal B Vaccine Aged Out No l onger eligible based on patient's age to complete this topic RSV Immunization Patients Under 20 months Aged Out No longer eligible based on patient's age to complete this topic Varicella Vaccines Aged Out No longer eligible based on patient's age to complete this topic Insurance [facility] [employer] Care Teams Cardiovascular Radiologic Technologist Relationship Specialty Start Date End Date Rere Rosas MD [address] [place] [address] [place] [id number] PCP - General Family Medicine 08/11/24
--- OUTSIDE RECORDS SUMMARY | 2025-02-09 15:53 | XMS_ITS | Clinical Summary ---
Demographics Address [address] [facility] [place] [address] Home Phone Mobile Phone Email Address Preferred Language Botswanan Marital Status Unknown Church Affiliation Unknown Race White Ethnic Group Not or Lati no Author Organization [facility] Address [address] [place] [address] Care Team Providers Care Electronics Commodity Manager Name Role Phone Sonja Cobb MD Primary Care Provider [phone] Allergies Active Allergy Reactions Criticality Noted Date [...] Units total) by mouth daily. 0 Active [place]-3 Fatty Acids (Fish Oil) 1000 MG CPDR Take by mouth. 0 Active Probiotic Product (mobiliThink) CAPS Take by mouth. 0 Active Immune [...] 63 03/10/2024 10:12 AM EDT Temperature 36.4 C (97.6 F) 03/10/2024 10:12 AM EDT Respiratory Rate - - Oxygen Saturation 97% [...] risk series) 04/05/2023 03/08/2023 Influenza Vaccine (#1) 2025 , 05/18/2022, 05/04/2021, Additional history exists Shingrix-Zoster Vaccine Completed 05/09/2023, 03/08 RSV Ped < 20 months Aged Out No longe r eligible based on patient's age to complete this topic Care Teams Electronics Commodity Manager Relationship Specialty Start Date End Date Sonja Cobb MD [address] [facility] [place] [address] PCP - General Internal Medicine 03/10/24
== END 2025-02-09 14:52 | disposition home or self-care (01) ==
LOC: HO.ENCR 13:40
PROVIDERS: PCP Family Medicine; Visit Provider Internal Medicine Endocrinology, Diabetes & Metabolism
DX: E10.65 Type 1 diabetes mellitus with hyperglycemia (principal)
CPT/HCPCS: 99213

== ENCOUNTER → 2025-02-09 13:40 | Outpatient (BNVA) | payer OTHER, SELFPAY | PROVIDERS: PCP Family Medicine; Visit Provider Internal Medicine Endocrinology, Diabetes & Metabolism | DX: E10.65 Type 1 diabetes mellitus with hyperglycemia (principal) | CPT/HCPCS: 82947; 83036; 99212 ==

== ENCOUNTER 2025-02-26 08:49 | Outpatient (AMB) | payer OTHER, SELFPAY ==
--- OUTSIDE RECORDS SUMMARY | 2024-03-10 10:00 | XMS_ITS | Encounter Summary ---
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 ?? He is followed by a customer acquisition specialist. The fungal infection resolved on antifungal cream. [...] in 01/2020. He was evaluated by an pizza delivery driver. He started [id number]-[id number] medication with excellent control of the hives. ?? He developed a left thigh cellulitis in 05/2020, requiring hospitalization at [facility] with a debridement and antibiotic therapy. ?? [...] oral iron. I referred him back to [facility] for an endoscopic evaluation and observation was [...] infection. ?? He is followed by a customer acquisition specialist. The fungal infection resolved on antifungal cream. [...] in 01/2020. He was evaluated by an pizza delivery driver. He started rcwf-ive-[id number] medication with excellent control of the hives. ?? He developed a left thigh cellulitis in 05/2020, requiring hospitalization at [facility] with a debridement and antibiotic therapy. ?? [...] Description 03/11/2025 10:00 AM EDT Office Visit [facility] [address] [place] [phone] Dami Rivas MD [address] [place] [phone] 05/07/2025 2:45 PM EST Office Visit Orthopedic Surgery [facility] [address] [phone] Russ Dixon, DPM [address] [phone] documented as of this encounter Visit Diagnoses Not on filedocumented in this encounter Care Teams Parts Casting Machine Operator Relationship Specialty Start Date End Date Sonja Cobb MD [address] [place] [address] PCP - General 03/10/24 03/16/24 documented as of this encounter
--- NOTE | 2025-02-26 09:02 | A.OFFVIS_ITS ---
Intake Intake Visit Reasons: 60 min Auto Washer Required: No Accompanied by: Self / Same As Patient Allergies lisinopril Allergy (Severe, Verified 02/09/25 13:47) Swelling penicillin V Allergy (Unknown, Verified 02/09/25 13:47) hives Sulfa (Sulfonamide Antibiotics) Allergy (Unknown, Verified 02/09/25 13:47) hives synthetic insulin Allergy (Unknown, Uncoded 02/09/25 13:47) hives januvia Adverse Reaction (Mild, Uncoded 02/09/25 13:47) Gastrointestinal Upset ozempic Adverse Reaction (Mild, Uncoded 02/09/25 13:47) Abdominal Pain HPI Comprehensive Diabetes Asmnt Most Recent Diabetes Results: 2 Microalb/Creat Ratio 177.1 ug/mg cr 07/29/20 Cholesterol 115 mg/dL 07/29/20 HDL Cholesterol 31 mg/dL 07/29/20 Triglycerides 180 mg/dL 07/29/20 Creatinine, (0.5-1.4) 0.73 mg/dL 10/22/23 BUN, (9-16) 13 mg/dL 10/22/23 Sodium, (135-145) 146 mmol/L H 10/22/23 Potassium, (3.3-5.1) 3.5 mmol/L 10/22/23 Chloride, (96-108) 104 mmol/L 10/22/23 Carbon Dioxide, (22-29) 30 mmol/L H 10/22/23 Calcium, (8.4-10.2) 9.3 mg/dL Δ 10/22/23 AST, (5-37) 50 U/L H 07/29/20 ALT, (0-40) 50 U/L H 07/29/20 Total Protein, (6.5-8.0) 7.1 g/dL 07/29/20 Albumin, (3.5-5.0) 4.1 g/dL 07/29/20 [facility] Medical History (Updated 11/06/24 @ 15:32 by MINO Lee) Uncontrolled type 1 diabetes mellitus with hyperglycemia, with long-term current use of insulin B12 deficiency Primary immune deficiency disorder Hypertension Mild non proliferative diabetic retinopathy Obesity (BMI 30-39.9) 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), managed as type 1 Dyslipidemia Surgical History Hx of sigmoidoscopy H/O hand surgery Hx of knee surgery History of testicular surgery Hx of tonsillectomy Hx of colonoscopy History of appendectomy Family History Father HTN (hypertension) Mother Thyroid disease Hypercholesterolemia Brother Diabetes mellitus Social History Household Members: None Alcohol intake: never Patient Tobacco Use Status: Never used Tobacco Assessment & Plan Assessment & Plan (1) 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 T slim with control IQ and Dexcom G6 The following topics were reviewed today: -? Dexcom G6 verses Dexcom G7 sensors -bolusing 30 minutes prior to meals ??? High Alert: 200 mg/dl ??? Low Alert: 70 mg/dl? Patient's last A1c 6.6% 11/06/24 Patient is still not bolusing for all meals, asked patient if he refrains from bolusing because he is concerned about hypoglycemia. Discussed with patient's switching from Dexcom G6 to Dexcom G7 sensor. Patient had tried to do this once before but had negative experience with G7 sensor. Patient given sample Dexcom G7 sensor, to try at next sensor change Patient is only using 23 units per day of U 500, discussed with patient considering switching to U 200. 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
--- OUTSIDE RECORDS SUMMARY | 2025-02-26 09:25 | XMS_ITS | Clinical Summary ---
Author Organization [facility] Address [address] [address] Phone Care Team Providers Care Press Feeder Name Role Phone Rere Rosas MD Primary [...] topic Medical Devices Not on file [place] [address] [address] [place] [address] [facility] [employer] [place] [address] [place] [address] [employer] [facility] [employer] [place] [address] [place] [address] [place] [address] [place] [address] [employer] [facility] [facility] [employer] [facility] DIRECT Care Teams Press Feeder Relationship Specialty Start Date End Date Rere Rosas MD [address] [place] [address] PCP - General Family Medicine 04/17/19 Additional Source Comments The information contained in this document represents components of the legal health record. It is not the complete legal health record.[facility]
--- OUTSIDE RECORDS SUMMARY | 2025-02-26 09:25 | XMS_ITS | Clinical Summary ---
Author Organization [facility] Address [address] [place] [address] Care Team Providers Care Operations Supervisor Name Role Phone Sonja Cobb MD Primary Care Provider [phone] Allergies Active Allergy Reactions Criticality Noted Date [...] Units total) by mouth daily. 0 Active [place]-3 Fatty Acids (Fish Oil) 1000 MG CPDR Take by mouth. 0 Active Probiotic Product (Tigerstripe) CAPS Take by mouth. 0 Active Immune [...] age to complete this topic Care Teams Operations Supervisor Relationship Specialty Start Date End Date Sonja Cobb MD [address] [facility] [place] [address] PCP - General Internal Medicine 03/10/24
--- OUTSIDE RECORDS SUMMARY | 2025-02-26 09:25 | XMS_ITS | Clinical Summary ---
Author Organization [facility]. Address [address] [place] [address] Phone Care Team Providers Care Route Sales Delivery Drivers Supervisor Name Role Phone Sonja Cobb MD Primary Care Provider [phone] Allergies Active Allergy Reactions Criticality Noted Date [...] Active Continuous Glucose Transmitter (Dexcom G6 Transmitter) [facility] See administration instructions 05/29/20 24 Active Cyanocobalamin [...] Vitamin (Multi-Vitamin) tablet Take by mouth Active [place]-3 1000 MG capsule Take by mouth Active [...] lower limb 04/05/2018 Overview (07/15/2024): 02/16/2018 IP [facility] [place] with Cellulitis, UTI, & Viral Bronchitis,02/21/18 Trans [facility] for further eval & ID consults Levaquin [...] Coronary arteriosclerosis 11/21/2017 Overview (07/15/2024): 2006, Old [place], Agammaglobulinemia 11/21/2017 Overview (07/15/2024): Gammaglobulin infusions q 3 weeks ( since age 15) History of malignant neoplasm of rectum 11/15/19 18 Overview (07/15/2024): 08/2014, Stage I, T2 N0, low anterior resection 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 Encounters Date Type Department Care Team Description 01/07/2025 3:15 PM EDT Office Visit [facility] [address] [address] Prem Hernandez MD Hypernatremia (Primary [...] Lab) (12/16/2024) BUN 12 mg/dL eGFR Non-Afr [place] 103 Sodium 141 mEq/L Potassium 3.9 mEq/L Chloride 101 Carbon Dioxide 26 mmol/L Calcium 8.9 mg/dL Creatinine 0.77 mg/dL Anion Gap 14 Blood 12/16/2024 us Historical Provider LAB BLOOD ORDERABLES Tosha l Result from Last 3 Months Insurance Care Teams Route Sales Delivery Drivers Supervisor Relationship Specialty Start Date End Date Sonja Cobb MD [address] [place] [address] PCP - General Internal Medicine 05/12/24
--- OUTSIDE RECORDS SUMMARY | 2025-02-26 09:25 | XMS_ITS | Clinical Summary ---
Author Organization 175 [facility] Address [address] [place] [address] Phone Care Team Providers Care Block Feeder Name Role Phone Rere Rosas MD [...] 3:30 PM EDT Office Visit Orthopedic Surgery [facility] [address] [place] [address] [place] [address] Russ Dixon, DPM Dermatophytosis of nail (Primary Dx); Diabetic mononeuropathy simplex ([facility]/HCC V24, [facility] V28) from Last 3 Months Surgical [...] Coronary angiogram OTHER SURGICAL HISTORY 08/13/2014 PROCEDURE: [place] LAPAROSCOPY COLECTOMY PARTIAL W/ANASTOMOSIS; COMMENT: Rectosigmoidectomy, Dr Diaz OTHER SURGICAL HISTORY 2015 PROCEDURE: [place] INTESTINAL PLICATION SEPARATE PROCEDURE; COMMENT: Dr Fang Medical History Medical History Date Comments Fatty liver 11/21/2017 DX:Fatty liver Hemorrhoids 11/21/2017 DX:Hemorrhoids SUHAIL (obstructive sleep apnea) 11/21/2017 DX :SUHAIL (obstructive sleep apnea) CAD (coronary artery disease) 11/21/2017 DX :CAD (coronary artery disease); COMMENT: 2006, Old [place], Hypertension 11/21/2017 DX:Hypertension Hyperlipidemia 11/21/2017 DX:Hyperlipidemi a 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/2017 DX:Anastomotic stricture of colorectal region; COMMENT: Yearly dilation, last performed 09/2017 Agammaglobulinemia ([facility] V24) 11/21/2017 DX:Agammaglobulinemia (HCC); COMMENT: Gammaglobulin [...] diabetes in adults), managed as type 1 ([facility]); COMMENT: 03/2018 Diagnosis changed to type 1 d/t presence of antibodies. On Insulin pump Insulin pump in place 04/05/2018 DX:Insulin pump in place History of MRSA infection 04/05/2018 DX:His tory of MRSA infection; COMMENT: 2016 Cutaneous abscess Cellulitis of left lower extremity 04/05/2018 DX:Cellulitis of left lower extremity; COMMENT: 02/16/2018 IP [facility] [place] with Cellulitis, UTI, & Viral Bronchitis,02/21/18 Trans [facility] for further eval & ID consults Levaquin [...] 03/11/2025 10:00 AM EDT Office Visit [facility] Hematology Oncology [address] [place] [address] Dami Rivas MD [address] [place] [address] 05/07/2025 2:45 PM EST Office Visit Orthopedic Surgery - [place] [address] [address] Russ Dixon DPM [address] [address] Health Maintenance Due Date Last [...] patient's age to complete this topic Insurance [facility] [employer] Care Teams Block Feeder Relationship Specialty Start Date End Date Rere Rosas MD [address] [place] [address] [place] [address] PCP - General Family Medicine 08/11/24
== END 2025-02-26 09:38 | disposition home or self-care (01) ==
LOC: HO.ENCR 08:49
PROVIDERS: PCP Family Medicine; Visit Provider Registered Nurse Diabetes Educator
DX: E13.9 Other specified diabetes mellitus without complications (principal)

== ENCOUNTER → 2025-02-26 08:49 | Outpatient (BNVA) | payer OTHER, SELFPAY | PROVIDERS: PCP Family Medicine; Visit Provider Registered Nurse Diabetes Educator | DX: E13.9 Other specified diabetes mellitus without complications (principal) | CPT/HCPCS: 99211 ==

== ENCOUNTER 2025-05-11 13:48 | Outpatient (AMB) | payer OTHER, SELFPAY ==
--- OUTSIDE RECORDS SUMMARY | 2024-03-10 09:00 | XMS_ITS | Encounter Summary ---
Author Organization [facility] Address [address] [place] [address] Care Team Providers Care Thread Clipper Name Role Phone Sonja Cobb MD Primary Care Provider Encounter Details Date Type Department Care Team (Late st Contact Info) Description 03/10/2024 10:00 AM EDT Hospital Encounter TH HISTORIC ENCOUNTERS [facility] ONLY Dami Rivas MD [address] [place] [phone] Social History Tobacco Use Types Packs/Day Years Used Date Smoking Tobacco: Never Assessed Alcohol Use Standard Drinks/Week Comments No 0 (1 standard drink = 0.6 oz pur e alcohol) Sex and Gender Information Value Date Recorded Sex Assigned at Male 09/30/2024 4:30 PM EDT Legal Sex Male 9:59 AM EST Gender Identity Male 09/30/2024 4:30 PM EDT Sexual Orientation Straight 09/30/2024 4: 30 PM EDT documented as of this encounter Last Filed Vital Signs Vital Sign Reading Time Taken Comments Blood Pressure 160/70 03/10/2024 10:12 AM EDT Sitting Right arm Pulse 63 03/10/2024 10:12 AM EDT Temperature - - Respiratory Rate - - Oxygen Saturation - - Inhaled Oxygen Concentration - - Weight 130 kg (286 lb) 03/10/2024 10:12 AM EDT Height 198.1 cm (6' 6 ) 03/10/2024 10:1 2 AM EDT Body Mass Index 33.05 03/10/2024 10:12 AM EDT documented in this encounter Progress Notes * Dami Rivas MD - 03/10/2024 10:00 AM EDT Diagnosis/treatment: ?? Stage I T2N0 rectal cancer, diagnosed in 07/2014. The patient underwent a low anterior resection on 08/13/2014. ?? Interval history: ?? The patient is a 59-year-old gentleman who presented with a complaint of hematochezia for a year and a half and diarrhea for 6 months. He underwent a colonoscopy in 07/07/[address] Mckeon at which revealed a rectal mass 15 cm from the anal verge. A biopsy was taken from the mass and the pathology revealed adenocarcinoma. The CEA was normal at 1.4 on 07/15/2014. CT scan of the chest, abdomen, and pelvis with IV contrast in 07/22/2014 showed no evidence of metastatic disease. There was hepatomegaly and diffuse hepatic steatosis. There were small pulmonary nodules including a 0.7 cm right lower lobe nodule and 0.4 cm left apex nodule. ?? The patient underwent LAR on 08/13/[address] Diaz. The pathology revealed a T2 grade 2 adenocarcinoma. LVI was not present. IHC studies showed microsatellite stability. 0 out of 16 lymph nodes were involved with tumor. A postoperative CT scan and pelvis in 08/24/2014 with oral and IV contrast was unremarkable apart from hepatomegaly and diffuse hepatic steatosis. ?? The patient has had a chronic transaminitis likely related to hepatic steatosis. ?? The patient had a bowel obstruction postoperatively. Several sigmoidoscopies by Dr. Alfonso showed an anastomotic strictures. He underwent serial dilatations of the stricture. He had corrective surgery performed by Dr. Fang 2015. He has had no problems with obstructive symptoms since. ?? A follow-up chest CT and 03/24/2015 showed stable pulmonary nodules. ?? A follow-up chest and abdominal pelvic CT on 09/29/2015 showed stable pulmonary nodules. A perirectal lymph node increased slightly from 0.6-1.0 cm compared to 07/25/2014 CT scan. ?? The patient a follow-up colonoscopy in 10/2015. 2 small polyps were excised and the pathology demonstrated hyperplastic polyps. There was an anastomotic stricture which was dilated. Biopsies were taken from the anastomotic stricture and the pathology showed benign findings. He underwent a follow-up colonoscopy in 10/2017, which was unremarkable. Biopsies were taken from the anastomotic stricture and the pathology showed benign findings. ?? The patient had a severe groin fungal infection in the fall 2015. ?? He underwent abdominal pelvic CT scan 03/16/2016 showed which showed progressive lymphadenopathy. A1.2 cm pericolic lymph node was seen. Increasing retroperitoneal lymph nodes adjacent to the right common iliac artery were seen measuring up to 1.7 cm. There was an increasing right pelvic sidewall node measuring 2.0 cm. There was bilateral inguinal lymphadenopathy. The lymphadenopathy was likely reactive to the fungal infection. ?? He is followed by a explosive man. The fungal infection resolved on antifungal cream. ?? A follow-up chest and abdominal pelvic CT in 11/27/2016 showed a new 0.7 cm right upper lobe groundglass nodule. The retroperitoneal right pelvic sidewall and bilateral inguinal lymphadenopathy resolved. There was a 1.1 cm perirectal lymph node. ?? A follow-up chest CT in 05/10/2017 showed resolution of the right upper lobe groundglass nodule as well as stable pulmonary nodules. ?? The patient had intermittent left lower quadrant abdominal pain starting in early 11/2016, which resolved over several weeks. ? A surveillance A/P CT on 05/13/2018 showed stable findings compared with CTs going back to the 09/2015 CT. A 2.2 x 2.4 x 2.6 marginated soft tissue density was seen just superior to the suture line inthe colon. A right mesenteric pericecal node measured 2.1 x 1.2 cm. A 1.4 cm node adjacent to the surgical site was seen. ?? He developed abdominal pain and diarrhea in early 03/2019. ??An A/P CT with IV contrast on 03/10/2019 showed mural thickening in the terminal ileum extending to involve the entire colon rectum with a few scattered subcentimeter nodes in the mesorectal fat, consistent with an acute ileocolitis. ??He completed a course of antibiotics and the symptoms resolved. ?? He developed hives in 01/2020. He was evaluated by an smutter. He started [id number] medication with excellent control of the hives. ?? He developed a left thigh cellulitis in 05/2020, requiring hospitalization at [facility] with a debridement and antibiotic therapy. ?? He denies a change in bowel pattern apart from frequent??formed??stools. He reports scant blood on the toilet paper, which he attributes to irritated external hemorrhoids, since 02/2020. He denies melena. ?? He underwent a colonoscopy on 10/12/[address] Salcedo and a sigmoid colonic polyp was seen and excised and the pathology demonstrated tubular adenoma. A rectosigmoid colonic stricture was seen andbiopsied and the pathology showed benign findings ?? He reports a chronic intermittent nonproductive cough, attributed to seasonal allergies and PND. He developed constant left flank and left lower quadrant abdominal pain in late 08/2022, which resolved without intervention. An A/P CT with IV and oral contrast on 09/05/2022 was unremarkable. He has had multiple syncopal episodes and episodic dizziness since 2021.. A head CT/C-spine CT without contrast on 09/13/2022 were unremarkable. A carotid Doppler study 04/25/2023 was unremarkable. A brain MRI with contrast on 07/26/2023 showed scattered small FLAIR bright foci within the supratentorial white matter, slightly more pronounced than the prior MRI on 11/24/2020. A head/neck CTA on 08/24/2023 showed possible moderate stenosis of the V4 segment of the right vertebral artery and was otherwise unremarkable. A cerebral angiogram on 08/14/2023 showed no critical stenoses. An EEG was performed on 08/24/2023 and the reading is pending. He is followed by a Neurologist. He remains on aspirin 81 mg twice daily. ?? He denies headaches or visual changes. He denies hemoptysis, or dyspnea on exertion. He denies nausea pain. She denies unusual bone pain. He reports a stable appetite and weight. ?? He has had a chronic mild anemia. He was instructed to take oral B12 1000 mcg daily. ?? The hemoglobin was 12.3 with MCV 83 and 05/08/2018. ?? The hemoglobin was 11.6 with MCV 84 and 11/18/2018. ?? The hemoglobin was 12.8 with MCV 81 on 05/16/2019. ?? A CBC on 02/02/2022 showed WBC 7.4, hemoglobin 12.1 with MCV 79, platelet count 229,000. ?? A CBC on 03/14/2022 showed WBC 6.3, hemoglobin 12.4 with MCV 82, and platelet count 209,000. A percent transferrin saturation was 10. A ferritin was 21. B12 and folate levels were normal. He is tolerating oral iron 1 tablet daily well without side effects. A CBC on 06/13/2022 showed WBC 9.2, hemoglobin 13.8 with MCV 80, and platelet count 298,000. A percent transferrin saturation was 12. A ferritin was 28. A CBC on 09/05/2022 showed WBC 6.6, hemoglobin 14.0 with MCV 80, and platelet count 199,000. A percent transferrin saturation was 17. A ferritin was 105. A CBC on 03/09/2023 showed WBC 6.8, hemoglobin 13.7 with MCV 85, and platelet count 225,000. A percent transferrin saturation was 15. A ferritin was 120. A CBC on 09/06/2023 showed WBC 8.8, hemoglobin 15.5 with MCV 81, and platelet count 237,000. A percent transferrin saturation was 18. A ferritin was 61. ?? He denies clinical bleeding, including no epistaxis, hemoptysis, hematemesis, hematuria, melena, orhematochezia. ?? Review of systems: The remainder of a 10 point review of systems was unremarkable. Physical examination: HEENT: Sclerae anicteric, normal oropharyngeal membrane. Neck: No lymphadenopathy. Lungs: Clear to auscultation. Heart: No murmurs. Abdomen: Soft, nontender, no organomegaly or masses. Extremities: No edema. Skin: No rash. Neurologic: Normal gait. ? Assessment/plan: ?? The patient is a 59-year-old gentleman who presented with stage I T2N0 rectal cancer in 2014. He underwent a low anterior resection on 08/13/2014. He developed an anastomotic stricture and underwent corrective surgery 02/2015. He did not require adjuvant chemoradiation as he had stage I disease. ?? The patient was previously followed for pulmonary nodules. We followed chest CTs over 2-1/2 years which showed stable findings and therefore he will not require further chest CTs. ?? He??was??compliant with surveillance A/P CTs out to 5 years??which??showed??stable findings. An A/PCT in early 09/2022 was unremarkable. ?? He is compliant with surveillance colonoscopies and a colonoscopy in 10/2017 was unremarkable. He reports scant blood on the toilet paper, which he attributes to irritated external hemorrhoids, since 02/2020. He underwent a colonoscopy in 10/2020 which was unremarkable apart from a sigmoid colonic polyp which was biopsied and demonstrated to be tubular adenoma and a rectosigmoid colonic stricture which was biopsied and the pathology demonstrated benign findings. ?? He has a chronic microcytic anemia with a worsening microcytosis in 02/2022. Iron studies showed an iron deficiency. I instructed him to start oral iron, 1 tablet daily. He is tolerating oral iron well without side effects. The anemia resolved. The microcytosis and iron studies remain borderline. I instructed him to continue the oral iron. I referred him back to [facility] for an endoscopic evaluation and observation was recommended given that he had a colonoscopy in 10/2020.. ?? There is no strong clinical evidence of recurrent rectal cancer. * Dami Rivas MD - 03/10/2024 10:00 AM EDT Diagnosis/treatment: ?? Stage I T2N0 rectal cancer, diagnosed in 07/2014. The patient underwent a low anterior resection on 08/13/2014. ?? Interval history: ?? The patient is a 58-year-old gentleman who presented with a complaint of hematochezia for a year and a half and diarrhea for 6 months. He underwent a colonoscopy in 07/07/[address] Mckeon at which revealed a rectal mass 15 cm from the anal verge. A biopsy was taken from the mass and the pathology revealed adenocarcinoma. The CEA was normal at 1.4 on 07/15/2014. CT scan of the chest, abdomen, and pelvis with IV contrast in 07/22/2014 showed no evidence of metastatic disease. There was hepatomegaly and diffuse hepatic steatosis. There were small pulmonary nodules including a 0.7 cm right lower lobe nodule and 0.4 cm left apex nodule. ?? The patient underwent LAR on 08/13/[address] Diaz. The pathology revealed a T2 grade 2 adenocarcinoma. LVI was not present. IHC studies showed microsatellite stability. 0 out of 16 lymph nodes were involved with tumor. A postoperative CT scan and pelvis in 08/24/2014 with oral and IV contrast was unremarkable apart from hepatomegaly and diffuse hepatic steatosis. ?? The patient has had a chronic transaminitis likely related to hepatic steatosis. ?? The patient had a bowel obstruction postoperatively. Several sigmoidoscopies by Dr. Alfonso showed an anastomotic strictures. He underwent serial dilatations of the stricture. He had corrective surgery performed by Dr. Fang 2015. He has had no problems with obstructive symptoms since. ?? A follow-up chest CT and 03/24/2015 showed stable pulmonary nodules. ?? A follow-up chest and abdominal pelvic CT on 09/29/2015 showed stable pulmonary nodules. A perirectal lymph node increased slightly from 0.6-1.0 cm compared to 07/25/2014 CT scan. ?? The patient a follow-up colonoscopy in 10/2015. 2 small polyps were excised and the pathology demonstrated hyperplastic polyps. There was an anastomotic stricture which was dilated. Biopsies were taken from the anastomotic stricture and the pathology showed benign findings. He underwent a follow-up colonoscopy in 10/2017, which was unremarkable. Biopsies were taken from the anastomotic stricture and the pathology showed benign findings. ?? The patient had a severe groin fungal infection in the fall 2015. ?? He underwent abdominal pelvic CT scan 03/16/2016 showed which showed progressive lymphadenopathy. A1.2 cm pericolic lymph node was seen. Increasing retroperitoneal lymph nodes adjacent to the right common iliac artery were seen measuring up to 1.7 cm. There was an increasing right pelvic sidewall node measuring 2.0 cm. There was bilateral inguinal lymphadenopathy. The lymphadenopathy was likely reactive to the fungal infection. ?? He is followed by a explosive man. The fungal infection resolved on antifungal cream. ?? A follow-up chest and abdominal pelvic CT in 11/27/2016 showed a new 0.7 cm right upper lobe groundglass nodule. The retroperitoneal right pelvic sidewall and bilateral inguinal lymphadenopathy resolved. There was a 1.1 cm perirectal lymph node. ?? A follow-up chest CT in 05/10/2017 showed resolution of the right upper lobe groundglass nodule as well as stable pulmonary nodules. ?? The patient had intermittent left lower quadrant abdominal pain starting in early 11/2016, which resolved over several weeks. ? A surveillance A/P CT on 05/13/2018 showed stable findings compared with CTs going back to the 09/2015 CT. A 2.2 x 2.4 x 2.6 marginated soft tissue density was seen just superior to the suture line inthe colon. A right mesenteric pericecal node measured 2.1 x 1.2 cm. A 1.4 cm node adjacent to the surgical site was seen. ?? He developed abdominal pain and diarrhea in early 03/2019. ??An A/P CT with IV contrast on 03/10/2019 showed mural thickening in the terminal ileum extending to involve the entire colon rectum with a few scattered subcentimeter nodes in the mesorectal fat, consistent with an acute ileocolitis. ??He completed a course of antibiotics and the symptoms resolved. ?? He developed hives in 01/2020. He was evaluated by an smutter. He started [id number] medication with excellent control of the hives. ?? He developed a left thigh cellulitis in 05/2020, requiring hospitalization at [facility] with a debridement and antibiotic therapy. ?? He denies a change in bowel pattern apart from frequent??formed??stools. He reports scant blood on the toilet paper, which he attributes to irritated external hemorrhoids, since 02/2020. He denies melena. ?? He underwent a colonoscopy on 10/12/[address] Salcedo and a sigmoid colonic polyp was seen and excised and the pathology demonstrated tubular adenoma. A rectosigmoid colonic stricture was seen andbiopsied and the pathology showed benign findings ?? He reports a chronic intermittent nonproductive cough, attributed to seasonal allergies and PND. He developed constant left flank and left lower quadrant abdominal pain in late 08/2022, which resolved without intervention. An A/P CT with IV and oral contrast on 09/05/2022 was unremarkable. He has had multiple syncopal episodes and episodic dizziness since 2021.. A head CT/C-spine CT without contrast on 09/13/2022 were unremarkable. A carotid Doppler study 04/25/2023 was unremarkable. A brain MRI with contrast on 07/26/2023 showed scattered small FLAIR bright foci within the supratentorial white matter, slightly more pronounced than the prior MRI on 11/24/2020. A head/neck CTA on 08/24/2023 showed possible moderate stenosis of the V4 segment of the right vertebral artery and was otherwise unremarkable. A cerebral angiogram on 08/14/2023 showed no critical stenoses. An EEG was performed on 08/24/2023, which reportedly was unremarkable. He is followed by a Neurologist. He remains on as pirin 81 mg twice daily. ?? He denies headaches or visual changes. He denies hemoptysis, or dyspnea on exertion. He denies nausea pain. She denies unusual bone pain. He reports a stable appetite and weight. ?? He has had a chronic mild anemia. He was instructed to take oral B12 1000 mcg daily. ?? The hemoglobin was 12.3 with MCV 83 and 05/08/2018. ?? The hemoglobin was 11.6 with MCV 84 and 11/18/2018. ?? The hemoglobin was 12.8 with MCV 81 on 05/16/2019. ?? A CBC on 02/02/2022 showed WBC 7.4, hemoglobin 12.1 with MCV 79, platelet count 229,000. ?? A CBC on 03/14/2022 showed WBC 6.3, hemoglobin 12.4 with MCV 82, and platelet count 209,000. A percent transferrin saturation was 10. A ferritin was 21. B12 and folate levels were normal. He is tolerating oral iron 1 tablet daily well without side effects. A CBC on 06/13/2022 showed WBC 9.2, hemoglobin 13.8 with MCV 80, and platelet count 298,000. A percent transferrin saturation was 12. A ferritin was 28. A CBC on 09/05/2022 showed WBC 6.6, hemoglobin 14.0 with MCV 80, and platelet count 199,000. A percent transferrin saturation was 17. A ferritin was 105. A CBC on 03/09/2023 showed WBC 6.8, hemoglobin 13.7 with MCV 85, and platelet count 225,000. A percent transferrin saturation was 15. A ferritin was 120. He has had chronic difficulty with frequent stools. He underwent a sigmoidoscopy with balloon dilatation of a colorectal anastomotic stricture on 07/20/[address] Miranda. He reported less frequent stools. A CBC on 09/06/2023 showed WBC 8.8, hemoglobin 15.5 with MCV 81, and platelet count 237,000. A percent transferrin saturation was 18. A ferritin was 61. He underwent a colonoscopy on 09/13/[address] Fang which revealed the known colorectal anastomotic stricture with some ulceration. 0.6 cm cecal polyp and a 0.6 cm distal rectal polyp were excised and the pathology demonstrated tubular adenomas x 2. A CBC on 03/05/2024 showed WBC 7.7, hemoglobin 15.3 with MCV 87, and platelet count 243,000. A percent transferrin saturation was 19. A ferritin was 132. ?? He denies clinical bleeding apart from mild hemorrhoidal bleeding, including no epistaxis, hemoptysis, hematemesis, hematuria, melena, or hematochezia. ?? Review of systems: The remainder of a 10 point review of systems was unremarkable. Physical examination: HEENT: Sclerae anicteric, normal oropharyngeal membrane. Neck: No lymphadenopathy. Lungs: Clear to auscultation. Heart: No murmurs. Abdomen: Soft, nontender, no organomegaly or masses. Extremities: No edema. Skin: No rash. Neurologic: Normal gait. ? Assessment/plan: ?? The patient is a 59-year-old gentleman who presented with stage I T2N0 rectal cancer in 2014. He underwent a low anterior resection on 08/13/2014. He developed an anastomotic stricture and underwent corrective surgery 02/2015. He did not require adjuvant chemoradiation as he had stage I disease. ?? The patient was previously followed for pulmonary nodules. We followed chest CTs over 2-1/2 years which showed stable findings and therefore he will not require further chest CTs. ?? He??was??compliant with surveillance A/P CTs out to 5 years??which??showed??stable findings. An A/PCT in early 09/2022 was unremarkable. ?? He is compliant with surveillance colonoscopies and a colonoscopy in 10/2017 was unremarkable. He reports scant blood on the toilet paper, which he attributes to irritated external hemorrhoids, since 02/2020. He underwent a colonoscopy in 10/2020 which was unremarkable apart from a sigmoid colonic polyp which was biopsied and demonstrated to be tubular adenoma and a rectosigmoid colonic stricture which was biopsied and the pathology demonstrated benign findings. He underwent a colonoscopy in 09/2023 which was unremarkable apart from a cecal polyp and a distal rectal polyp which were excised and demonstrated a tubular adenomas and the known rectosigmoid colonic anastomotic stricture. ?? He has a chronic microcytic anemia with a worsening microcytosis in 02/2022. Iron studies showed an iron deficiency. I instructed him to start oral iron, 1 tablet daily. He is tolerating oral iron well without side effects. The anemia resolved. Microcytosis resolved. The iron studies remain borderline. I instructed him to continue the oral iron. ?? There is no strong clinical evidence of recurrent rectal cancer. I spent 30 minutes during this encounter, reviewing endoscopy reports, laboratory data, performing a history and physical, and providing education and counseling. documented in this encounter Plan of Treatment Upcoming Encounters Date Type Department Care Team (Late st Contact Info) Description 05/14/2025 2:15 PM EST Office Visit Orthopedic Surgery [place] [phone] [phone] Russ Dixon DPM [address] [phone] 03/10/2026 10:00 AM EDT Office Visit [facility] Hematology Oncology [address] [place] [phone] Dami Rvias MD [address] [place] [phone] documented as of this encounter Visit Diagnoses Not on filedocumented in this encounter Care Teams Thread Clipper Relationship Specialty Start Date End Date Sonja Cobb MD [address] [place] [id number] PCP - General 03/10/24 03/16/24 documented as of this encounter
--- NOTE | 2025-05-11 14:01 | A.OFFVIS_ITS ---
Vital Signs 05/11/25 14:03 Height 6 ft 6 in Weight 288 lb 2.307 oz BMI 33.3 BP 144/64 H Blood Pressure Location Lt brachial Position Sitting Pulse 69 Pulse Source Pulse Oximeter Pulse Oximetry (%) 97 Oxygen Delivery Method Room Air Intake Visit Reasons: T1DM Intake Note: Patient present today to follow up on T1DM JODI. Last Diabetic Eye exam: 04/17/2025 [facility] Last Podiatry Visit: 10/07/2024 Dr. Dixon Random Glucose: 167 mg/dl HgA1C: 7.6% 05/11/2025 [employer] Required: No Accompanied by: Self / Same As Patient Allergies lisinopril Allergy (Severe, Verified 05/11/25 14:04) Swelling penicillin V Allergy (Unknown, Verified 05/11/25 14:04) hives Sulfa (Sulfonamide Antibiotics) Allergy (Unknown, Verified 05/11/25 14:04) hives synthetic insulin Allergy (Unknown, Uncoded 05/11/25 14:04) hives januvia Adverse Reaction (Mild, Uncoded 05/11/25 14:04) Gastrointestinal Upset ozempic Adverse Reaction (Mild, Uncoded 05/11/25 14:04) Abdominal Pain Medication List - Last Reconciled 05/11/25 by El Blackman MD acetone (urine) test (Ketone Urine Test strips) As directed amlodipine 10 mg PO QAM 90 days aspirin 162 mg PO DAILY blood sugar diagnostic As directed blood sugar diagnostic (Contour Test Strips) As directed prn sensor failure or to confirm glucose tid countour lite strips blood-glucose sensor (Dexcom G6 Sensor device) USE TO MONITOR BLOOD SUGAR, CHANGE SENSOR EVERY 10 DAYS DIRECTED blood-glucose transmitter (Dexcom G6 Transmitter device) USE DIRECTED cetirizine 10 mg PO DAILY PRN cyanocobalamin (vitamin B-12) 500 mcg PO DAILY empagliflozin (Jardiance) 25 mg PO DAILY ezetimibe 10 mg PO DAILY fluticasone propionate 110 mcg/actuation 2 puffs PO BID fluticasone propionate 50 mcg/actuation 2 sprays intranasal DAILY glucagon 3 mg/actuation (Baqsimi) 3 mg intranasal .prn PRN 30 days MDD 6 mg insulin regular hum U-500 conc (Humulin R U-500 (Concentrated) Insulin) 200 units (0.4 mL) subcut DAILY L. gasseri-B. bifidum-B longum 1.5 billion cell (Parallel Engines) 1 cap PO DAILY meclizine 25 mg PO TID PRN metformin ER 1,000 mg (2 x 500 mg) PO BID metoprolol succinate ER 200 mg PO QAM multivitamin 1 tab PO DAILY multivitamin with iron 1 tab PO DAILY pen needle, diabetic As directed rosuvastatin 40 mg PO DAILY 90 days spironolactone 25 mg PO DAILY HPI Comments Details: Patient is a 59-year-old male with DM type 1/JODI diagnosed at age 35 who presents for management of diabetes. He is karmen positive with preserve beta cell function. . He was forgetting his bolus with many snacks and meals. Past medical history: Dm 1/Jodi, hypertension, hyperlipidemia, primary immune deficiency disorder, rectal carcinoma status post resection, coronary artery disease with myocardial infarction at age 41, gammaglobuin anemia Micro and macrovascular complications: Neuropathy, mild nonproliferative diabetic retinopathy, bilateral, coronary artery disease. Diabetes medications: Metformin 1000 mg twice a day, Jardiance 25 mg QD Humulin U 500 in Tandem TSlim with Control IQ. In the past tried Ozempic, Mounjaro Januvia and was intolerant of both due to gi upset. pump setting at this visit Basal rate(s) (units/hour) : 12AM? to 12 PM ? 0.4 units / hr 12PM to 4 PM? 0.8 units / hr 4PM to 12 MN 0.5 units / hr? Bolus setting Insulin Carbohydrate Ratio (s) 12AM? to 12PM? 1:9.5 12PM to 4 PM 1:10 4PM to 5 PM = 1:11 5PM to 12 AM = 1:9 Correction Factor / Sensitivity Factor 12AM? to 5 AM? 1:60 5 AM to 12 AM 1:55 Active Insulin Time:? Control IQ defaults to 5 hours Target(s): 12AM? to 12AM? 120 Pump Activities Sleep Schedule: On His total daily insulin dose is 29.27 units in 24 hour 37% basal 63 % food bolus 5 % correction bolus 84 % Control IQ bolus Has issues with pump occulsion and pump shutting down in AM CGM: In the last 2 weeks with an average of 190 . 0 % less than 48 % between 65- 170. 51% above 170. continuous glucose monitoring in use. Control IQ in use 84% of the time. Pattern shows post-breakfast and to a lesser extent post lunch and post-dinner hyperglycemia. 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 Purchasing Agent: jailyn joseph Dental exam: long time ago Ophthalmology evaluation: 04/2025 ou mild NPDR Labs received from [facility] 11/08/17 KARMEN negative C-Peptide 3.6 (fasting bg 163) islet cell antibody negative 10/26/16 GAD65 0.12 c-peptide 4.1 Had angioedema from lisinopril [facility] Medical History (Updated 11/06/24 @ 15:32 by MINO Lee) Uncontrolled type 1 diabetes mellitus with hyperglycemia, with long-term current use of insulin B12 deficiency Primary immune deficiency disorder Hypertension Mild non proliferative diabetic retinopathy Obesity (BMI 30-39.9) 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 Absence of acromegalic features. Neck exam reveals nl size thyroid about 15 gms. No thyroid nodules palpable. No carotid bruits present. Lungs CTA. Heart S1 S2, Reg R/R. No M/R/ G. Skin exam reveals absence of vitiligo or acanthosis nigricans. Abdominal exam reveals Soft NT/ND with NA BS. No organomegaly present. Neck Other: . Extrem Other: Visual exam of foot performed. No ulcerations or open lesions. There is a scaly lesion on both extremities. There is also 2+ edema present bilaterally No onchomycosis, no callouses.Pulses 2 + distally Sensation intact to monofilament exam. 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), managed as type 1: Code(s): E13.9 - Other specified diabetes mellitus without complications Category: Medical Plan: See below plan (2) Uncontrolled type 1 diabetes mellitus with hyperglycemia, with long-term current use of insulin: Code(s): E10.65 - Type 1 diabetes mellitus with hyperglycemia Category: Medical Plan: This is a 59-year-old white male labeled as LAD a type 1 but most probably type 2 with insulin resistance considerin KARMEN and islet cell negative currently treated with metformin, and a tandem T- slim pump with fair deteriorated glycemic control and known microvascular and macrovascular complications namely retinopathy, neuropathy and CAD. The plan is to reinforced with the patient to bolus prior to the meal. We will have patient follow up with the assistant health educator to deal with pump issues . 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
[2025-05-11 14:03] VITALS: BP 144/64; PULSE 69; O2SAT 97; BMI 33.3
[2025-05-11 14:15] LABS: Glucose, Whole Blood 167 mg/dL (60-115)
--- OUTSIDE RECORDS SUMMARY | 2025-05-11 22:35 | XMS_ITS | Clinical Summary ---
Author Organization [facility] Address [address] [place] [address] Phone Care Team Providers Care Oncology Social Work Name Role Phone Rere Rosas MD Primary Care Provider [phone] Allergies Active Allergy Reactions Criticality Noted Date [...] cell capsule Take by mouth. Activ e Active Problems Problem Noted Date Diagnosed Date Rectal cancer 03/15/2025 Iron deficiency anemia due to chronic blood loss 03/15/2025 Encounters Date Type Department Care Team Description 03/11/2025 10:00 AM EDT Office Visit [facility] Hematology Oncology [address] [place] [phone] Dami Rivas MD Rectal cancer (CMS/HCC V24, CMS/HCC V28) (Primary Dx) from Last 3 Months Surgical History Surgery [...] Coronary angiogram OTHER SURGICAL HISTORY 08/13/2014 PROCEDURE: MD LAPAROSCOPY COLECTOMY PARTIAL W/ANASTOMOSIS; COMMENT: Rectosigmoidectomy, Dr Diaz OTHER SURGICAL HISTORY 2015 PROCEDURE: MD INTESTINAL PLICATION SEPARATE PROCEDURE; COMMENT: Dr Fang Medical History Medical History Date Comments Fatty liver 11/21/2017 DX:Fatty liver Hemorrhoids 11/21/2017 DX:Hemorrhoids SUHAIL (obstructive sleep apnea) 11/21/2017 DX :SUHAIL (obstructive sleep apnea) CAD (coronary artery disease) 11/21/2017 DX :CAD (coronary artery disease); COMMENT: 2006, Old [place], Hypertension 11/21/2017 DX:Hypertension Hyperlipidemia 11/21/2017 DX:Hyperlipidemi a 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/2017 DX:Anastomotic stricture of colorectal region; COMMENT: Yearly dilation, last performed 09/2017 Agammaglobulinemia (CMS/HCC V24) 11/21/2017 DX:Agammaglobulinemia (HCC); COMMENT: Gammaglobulin infusions q 3 weeks ( since age 15) Pulmonary nodules 11/21/2017 DX:Pulmonary n odules; COMMENT: Ct 05/2017 Stable: Left apical 4 mm, Right lower lobe 6mm nodule Colon polyps 11/21/2017 DX:Colon polyps; COMMENT: 2016 hyperplastic excised JODI (latent autoimmune diab etes in adults), managed as type 1 (CMS/HCC V24, [facility] V28) 04/05/2018 DX: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 On Insulin pump Insulin pump in place 04/05/2018 DX:Insulin pump in place History of MRSA infection 04/05/2018 DX:His tory of MRSA infection; COMMENT: 2016 Cutaneous abscess Cellulitis of left lower extremity 04/05/2018 DX:Cellulitis of left lower extremity; COMMENT: 02/16/2018 [facility] [place] with Cellulitis, UTI, & Viral Bronchitis,02/21/18 [facility] for further eval & ID consults [...] Orientation Straight 09/30/2024 4: 30 PM EDT Last Filed Vital Signs Vital Sign Reading Time Taken Comments Blood Pressure 145/46 03/11/2025 10:00 AM EDT Pulse 58 03/11/2025 10:00 AM EDT Temperature 36.1 C (97 F) 03/11/2025 10:00 AM EDT Respiratory Rate - - Oxygen Saturation 98% 03/11/2025 10:00 AM EDT Inhaled Oxygen Concentration - - Weight 133 kg (293 lb) 03/11/2025 10:00 AM EDT Height 198.1 cm (6' 6 ) 10/07/2024 1:16 PM EDT Body Mass Index 33.86 10/07/2024 1:16 PM EDT Plan of Treatment Upcoming Encounters Date Type Department Care Team (Late st Contact Info) Description 05/14/2025 2:15 PM EST Office Visit Orthopedic Surgery - [place] [address] [phone] Russ Dixon, DPM [address] [address] 03/10/2026 10:00 AM EDT Office Visit [facility] Hematology Oncology [address] [place] [phone] Dami Rivas MD [address] [place] [address] Health Maintenance Due Date Last Done Comments Colorectal Cancer Screening: Colonoscopy 1965 Diabetes: Annual GFR (Glomerular Filtration Rate) 1965 Diabetes: Annual Foot Exam 1975 Diabetes: Annual Retina Eye Exam 1975 Hepatitis A Vaccines (1 of 2 - Risk 2-dose series) 02/27/1984 Pneumococcal Vaccine: 50+ Years (2 of 2 - PCV) 06/28/2005 06/28/2004 RSV Immunization Adult Patients (1 - Risk 50-74 years 1-dose series) 2015 Cholesterol Screening (Lipid Panel) 05/13/2022 HIV Screening 05/13/2022 Hepatitis C Screening 05/13/2022 Social Influencers of Health Screening 05/13/2022 Diabetes: Annual Urine Albumin-Creatinine Ratio (uACR) 05/18/2022 Diabetes: Blood Sugar Control Test (HGBA1C) 05/18/2022 Hypertension/CHF/CAD Annual BMP Blood Test 05/18/2022 Depression Screening 06/04/2024 COVID-19 Vaccine ( season) 2025 03/08/2023, 06/14/2021, 10/04/2020, Additional history exists Influenza Vaccine (#1) 2025 , 05/18/2022, 05/04/2021, Additional history exists Hepatitis B Vaccines (1 of 3 - Risk 3-dose series) 2025 DTaP,Tdap,and Td Vaccines (2 - Td or Tdap) 03/08/2033 03/08/2023 Zoster Vaccines Completed 05/09/2023, 03/08/2023 HIB Vaccines [...] patient's age to complete this topic Insurance [facility] PUBLIC [employer] Care Teams Oncology Social Work Relationship Specialty Start Date End Date Rere Rosas MD [address] [place] [phone] PCP - General Family Medicine 08/11/24
--- OUTSIDE RECORDS SUMMARY | 2025-05-11 22:35 | XMS_ITS | Clinical Summary ---
Author Organization [facility] Prior to 11/01/24 Address [address] [place] [address] Care Team Providers Care Credentialing Analyst Name Role Phone Sonja Cobb MD Primary Care Provider [phone] Allergies Active Allergy Reactions Criticality Noted Date [...] Units total) by mouth daily. 0 Active [place]-3 Fatty Acids (Fish Oil) 1000 MG CPDR Take by mouth. 0 Active Probiotic Product (SupplyFrame) CAPS Take by mouth. 0 Active Immune [...] Maintenance Due Date Last Done Comments Hepatitis C Screening 1965 Depression Screening 1977 BMI Counseling 1983 Preventative Health Evaluation 1983 DTap / Tdap / Td (1 - Tdap) 02/27/1984 Pneumococcal Vaccine (2 of 2 - PCV) 06/28/2005 06/28/2004 Colon Cancer Screening (Colonoscopy) 2010 COVID-19 Vaccine (2 - Moderna risk series) 04/05/2023 03/08/2023 Influenza Vaccine (#1) 2025 3, 05/18/2022, 05/04/2021, Additional history exists RSV Adult > 60+ Yrs or (1 - 1-dose 75+ series) 02/27/2040 Shingrix-Zoster Vaccine Completed 05/09/2023, 03/08 Hepatitis B Vaccines Aged Out No long er eligible based on patient's age to complete this topic RSV Ped < 20 months Aged Out No longe r eligible based on patient's age to complete this topic Care Teams Credentialing Analyst Relationship Specialty Start Date End Date Sonja Cobb MD [address] [facility] [place], [place] [phone] PCP - General Internal Medicine 03/10/24
--- OUTSIDE RECORDS SUMMARY | 2025-05-11 22:35 | XMS_ITS | Clinical Summary ---
Author Organization [facility] Address [address] [address] Phone Care Team Providers Care Merchant Banker Name Role Phone Rere Rosas MD Primary [...] - 2024-2 6 season) 2025 10/04/2020, 09/06/2020 RSV VACCINE (1 - 1-dose 75+ series) 02/27/2040 SMOKING STATUS SCREENING (On ce After 26 [...] topic Medical Devices Not on file [place] [address] [place] [address] [employer] [facility] [place] [address] [address] [employer]CTOR[employer] DIRECT [facility] DIRECT [facility] DIRECT [facility] DIRECT [facility] [employer] DIRECT [facility] DIRECT Care Teams Merchant Banker Relationship Specialty Start Date End Date Rere Rosas MD [address] [place] [address] PCP - General Family Medicine 04/17/19 Additional Source Comments The information contained in this document represents components of the legal health record. It is not the complete legal health record.[facility]
== END 2025-05-11 15:07 | disposition home or self-care (01) ==
LOC: HO.ENCR 13:49
PROVIDERS: PCP Family Medicine; Visit Provider Internal Medicine Endocrinology, Diabetes & Metabolism
DX: E13.9 Other specified diabetes mellitus without complications (principal); E10.65 Type 1 diabetes mellitus with hyperglycemia
CPT/HCPCS: 99213

== ENCOUNTER → 2025-05-11 13:48 | Outpatient (BNVA) | payer OTHER, SELFPAY | PROVIDERS: PCP Family Medicine; Visit Provider Internal Medicine Endocrinology, Diabetes & Metabolism | DX: E10.65 Type 1 diabetes mellitus with hyperglycemia (principal); Z79.4 Long term (current) use of insulin; Z79.84 Long term (current) use of oral hypoglycemic drugs | CPT/HCPCS: 82947; 83036; 99211; 99212 ==

== ENCOUNTER 2025-05-11 14:34 | Outpatient (AMB) | payer OTHER, SELFPAY ==
--- NOTE | 2025-05-11 14:45 | A.OFFVIS_ITS ---
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 Repairer Required: No Accompanied by: Self / Same As Patient Allergies lisinopril Allergy (Severe, Verified 05/11/25 14:04) Swelling penicillin V Allergy (Unknown, Verified 05/11/25 14:04) hives Sulfa (Sulfonamide Antibiotics) Allergy (Unknown, Verified 05/11/25 14:04) hives synthetic insulin Allergy (Unknown, Uncoded 05/11/25 14:04) hives januvia Adverse Reaction (Mild, Uncoded 05/11/25 14:04) Gastrointestinal Upset ozempic Adverse Reaction (Mild, Uncoded 05/11/25 14:04) Abdominal Pain PFSH Medical History (Updated 11/06/24 @ 15:32 by MINO Lee) Uncontrolled type 1 diabetes mellitus with hyperglycemia, with long-term current use of insulin B12 deficiency Primary immune deficiency disorder Hypertension Mild non proliferative diabetic retinopathy Obesity (BMI 30-39.9) 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), managed as type 1 Dyslipidemia Surgical History Hx of sigmoidoscopy H/O hand surgery Hx of knee surgery History of testicular surgery Hx of tonsillectomy Hx of colonoscopy History of appendectomy Family History Father HTN (hypertension) Mother Thyroid disease Hypercholesterolemia Brother Diabetes mellitus Social History Household Members: None Alcohol intake: never Patient Tobacco Use Status: Never used Tobacco Assessment & Plan Assessment & Plan (1) 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 T slim with control IQ and Dexcom G6 The following topics were reviewed today: -? Dexcom G6 verses Dexcom G7 sensors -troubleshooting for occlusions Patient reports he is getting multiple occlusion alerts over the past 4 weeks. Also on several occasions he has woken up with the pump with alerts saying all insulin delivery is have stopped Reviewed with patient how to trouble shoot for occlusion alerts Check Tubing & Infusion Set Check for visible?air bubbles in the tubing?If you see any, unlock your pump, tap?Options, Load, Fill Tubing,?and then tap?Fill?(not New) when prompted. When there are no visible air bubbles in your tubing, hold your tubing so that the connector needle is pointing down, and deliver a 5-unit bolus into the air. If the Occlusion Alarm did not recur during this bolus, the occlusion is likely at the infusion site. Use the following steps to help resolve: * Remove the infusion set and inspect the cannula for any kinks or bends by gently wiggling the tip of the cannula * Inspect the site on your body for redness, bumps, and leaking of insulin. Any visible damage to the cannula or inflammation at the site is most likely the cause of the occlusion. * Insert a new?infusion set?in a new location and resume normal delivery If the Occlusion Alarm did recur, the occlusion is likely in either the tubing or the cartridge itself. To determine which, continue with the next step. Check Cartridge Disconnect the tubing from the t:lock connection to the cartridge, hold the connection so it?s pointing down, and deliver another 5-unit bolus. * If the Occlusion Alarm did not recur during this bolus, the occlusion is likely in the tubing. Change your?infusion set?and tubing and resume normal delivery. * If the Occlusion Alarm did recur during the second bolus, the occlusion is likely in the cartridge.?Install a new cartridge ?and resume normal delivery. Please pay particular attention to the air removal step in filling the cartridge. Important:?Delivering a bolus will affect the Insulin on Board (IOB) displayed on your pump. If you are using Control-IQ technology, please note that pump may not increase your basal rate or deliver an automatic correction bolus for up to five hours due to this increase in displayed IOB. Please take this into account when making diabetes management decision Recommended to patient he contact [employer] and switch to sure T infusion set, this eliminates risk of cannula kinks Instructed patient if he continues to have issues he should contact tandem Setting verified by [facility]. No Changes to pump setting Basal rate(s) (units/hour) : 12AM? to 5AM? 0.4 units / hr 5AM? to 12PM? 0.8 units / hr 12PM to 4 PM? 0.9 units / hr 4PM to 12AM 0.5 units / hr? Bolus setting Insulin Carbohydrate Ratio (s) 12AM? to 12PM? 1:9.5 12 PM to 4PM 1:10 4 PM to 5 PM 1:11 5 PM to 12AM 1:9 Correction Factor / Sensitivity Factor 12AM? to 5 AM? 1:60 5 AM to 11 PM 1:55 11PM to 12AM 1:55 Active Insulin Time:? Control IQ defaults to 5 hours Target(s): 12AM? to 12AM? 120 Pump Activities Sleep Schedule: On Patient Instructions: Tips to Prevent Occlusions * Do not add insulin to the current cartridge * Do not reuse any insulin from old cartridges * Use room-temperature insulin when filling the cartridge * Fill cartridge with minimum of 95-120 units and no more than 300 units * Change the cartridge and load on pump * Use approved U-100 insulin * ?free of scar tissue, surgical scars, tattoos, and stretch ojeda (see recommended sites highlighted in green) * Practice good site rotation. Using the same area may cause scarring or lumps, which will affect insulin absorption. 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
== END 2025-05-11 15:09 | disposition home or self-care (01) ==
LOC: HO.ENCR 14:34
PROVIDERS: PCP Family Medicine; Visit Provider Registered Nurse Diabetes Educator
DX: E13.9 Other specified diabetes mellitus without complications (principal)